=== PATIENT | female | born 1990 | race African-American/Black ===

== ENCOUNTER 2017-08-05 19:15 | Emergency (ER) | payer OTHER ==
[2017-08-05 19:42] VITALS: BP 143/85; PULSE 77; TEMP 98; BMI 32.1
--- NOTE | 2017-08-05 19:43 | PDOC ---
Rapid Medical Evaluation Time Seen by Provider: 08/05/17 19:39 Medical Evaluation: Allergies Allergy/AdvReac Type Severity Reaction Status Date / Time No Known Allergies Allergy Verified 06/22/16 15:30 I have performed a brief in-person evaluation of this patient. The patient presents with a chief complaint of: abdominal pain and nausea x 1 week Pertinent physical exam findings: none I have ordered the following: hcg, UA, culture The patient will proceed to the ED for further evaluation.
--- NOTE | 2017-08-05 20:32 | PDOC ---
History of Present Illness <Roberto Foster - Last Filed: 08/05/17 23:47> - General History Source: Patient Exam Limitations: No Limitations - History of Present Illness Initial Comments: 08/06/17 07:00 Patient is a 26 year old female with no significant past medical history of who presents to the ED with complaints of Right upper quadrant abdominal pain that began 1 week ago. Patient reports experiencing sudden onset of right upper quadrant abdominal pain that lasts for a few minutes, then resolving, and decided to come to ED for further evaluation. She reports pain began suddenly last week after she was standing up while at work but did not get it looked at as she thought it was going to relieve itself over time. Patient reports RUQ abdominal pain is a sharp pain when active but otherwise she is asymptomatic. When there is pain she rates it as rated as a 8/10 pain that does not radiate. She reports last episode of sharp pain was yesterday afternoon that lasted 2 mins. Patient reports experiencing intermittent episodes of nausea, fatigue and urinary frequency secondary to abdominal pain. She reports her last menstrual period was July 23. Denies chest pain, Sob. Denies vomiting. Denies trauma to affected area. Denies constipation, diarrhea, dysuria, hematuria. Denies contact with sick individuals , out of state travelling. Pt denies any lower abodminal pain. 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 No smoking. No alcohol. No illicit drugs. Surgical history: None PMD: Dr. Pierre <Maikel Chance - Last Filed: 08/06/17 07:01> - General Chief Complaint: Pain Stated Complaint: abdominal pain Time Seen by Provider: 08/05/17 19:39 Past History - Past Medical History COPD: No - Immunization History Immunization Up to Date: Yes - Suicide/Smoking/Psychosocial Hx Smoking History: Never smoked Have you smoked in the past 12 months: No Information on smoking cessation initiated: No Hx Alcohol Use: No Drug/Substance Use Hx: No Substance Use Type: None <Roberto Foster - Last Filed: 08/05/17 23:47> <Maikel Chance - Last Filed: 08/06/17 07:01> - Past Medical History Allergies/Adverse Reactions: Allergies Allergy/AdvReac Type Severity Reaction Status Date / Time No Known Allergies Allergy Verified 08/05/17 19:42 Review of Systems - Review of Systems Able to Perform ROS?: Yes Comments:: 08/06/17 07:01 CONSTITUTIONAL: +Generalized weakness. No reported: Fever, Chills, Diaphoresis, Malaise, Loss of Appetite HEENT: No reported: Rhinorrhea, Nasal Congestion, Throat Pain, Throat Swelling, Difficulty Swallowing, Mouth Swelling, Ear Pain, Eye Pain, Visual Changes CARDIOVASCULAR: No reported: Chest Pain, Syncope, Palpitations, Irregular Heart Rate, Lightheadedness, Peripheral Edema RESPIRATORY: No reported: Cough, Shortness of Breath, SOB with Exertion, Orthopnea, Wheezing , Stridor, Hemoptysis GASTROINTESTINAL: +Right upper quadrant pain. +Nausea. No reported:Abdominal Distension, Vomiting, Diarrhea, Constipation, Melena, Hematochezia GENITOURINARY: +Urinary Frequency. No reported: Dysuria, Urgency, Hesitancy, Flank Pain, Genital Pain MUSCULOSKELETAL: No reported: Myalgia, Arthralgia, Joint Swelling, Back pain, Neck Pain SKIN: No reported: Rash, Itching, Pallor HEMATOLOGIC/IMMUNOLOGIC: No reported: Easy Bleeding, Easy Bruising, Lymphadenopathy, Frequent infections ENDOCRINE: No reported: Unexplained Weight Gain, Unexplained Weight Loss, Heat Intolerance , Cold Intolerance NEUROLOGIC: No reported: Headache, Focal Weakness, Paresthesias, Vertigo, Lightheadedness, Unsteady Gait, Seizure, Mental Status Changes, Incontinence PSYCHIATRIC: No reported: Anxiety, Depression <Maikel Chance - Last Filed: 08/06/17 07:01> *Physical Exam - Vital Signs Last Vital Signs Temp Pulse Resp BP Pulse Ox 98.0 F 77 18 143/85 99 08/05/17 19:39 08/05/17 19:39 08/05/17 19:39 08/05/17 19:39 08/05/17 19:39 <Roberto Foster - Last Filed: 08/05/17 23:47> - Vital Signs Last Vital Signs Temp Pulse Resp BP Pulse Ox 98.0 F 77 18 143/85 99 08/05/17 19:39 08/05/17 19:39 08/05/17 19:39 08/05/17 19:39 08/05/17 19:39 - Physical Exam Comments: 08/06/17 07:01 GENERAL: The patient is awake, alert, and fully oriented, Nontoxic - in no acute distress. HEAD: Normocephalic, atraumatic. EYES: extraocular movements intact, sclera anicteric, conjunctiva clear. ENT: Normal voice, Moist mucous membranes. NECK: Normal range of motion, No JVD LUNGS: Breath sounds equal, clear to auscultation bilaterally. No wheezes, no rhonchi, no rales. HEART: Regular rate and rhythm, normal S1 and S2 without murmur, rub or gallop. ABDOMEN: +Minimal RUQ tenderness. Soft, normoactive bowel sounds. No guarding, no rebound. No masses. No CVA tenderness. Negative Tidwell's EXTREMITIES: Normal range of motion, no edema. No clubbing or cyanosis. No cords , erythema, or tenderness. NEUROLOGICAL: No facial asymmetry, Normal speech, normal gait. PSYCH: Normal mood, normal affect. SKIN: Warm, Dry, normal turgor. <Maikel Chance - Last Filed: 08/06/17 07:01> ED Treatment Course - LABORATORY CBC & Chemistry Diagram: 08/05/17 21:10 08/05/17 21:10 <Roberto Foster - Last Filed: 08/05/17 23:47> - LABORATORY CBC & Chemistry Diagram: 08/05/17 21:10 08/05/17 21:10 - ADDITIONAL ORDERS Additional order review: Laboratory Results 08/05/17 08/05/17 08/05/17 22:00 21:10 21:10 Sodium 137 Potassium 3.9 Chloride 105 Carbon Dioxide 27 Anion Gap 5 L BUN 14 Creatinine 0.7 Creat Clearance w eGFR > 60 Random Glucose 83 Calcium 8.6 Total Bilirubin 0.2 D AST 15 ALT 32 Alkaline Phosphatase 74 Total Protein 7.6 Albumin 3.8 Lipase 137 Serum , Qual Urine Color Ltyellow Urine Appearance Clear Urine pH 8.0 D Ur Specific [place] 1.025 Urine Protein Negative Urine Glucose (UA) Negative Urine Ketones Negative Urine Blood Negative Urine Nitrite Negative Urine Bilirubin Negative Urine Urobilinogen 2.0 H Ur Leukocyte Esterase Negative 08/05/17 21:03 Sodium Potassium Chloride Carbon Dioxide Anion Gap BUN Creatinine Creat Clearance w eGFR Random Glucose Calcium Total Bilirubin AST ALT Alkaline Phosphatase Total Protein Albumin Lipase Serum , Qual Negative Urine Color Urine Appearance Urine pH Ur Specific [place] Urine Protein Urine Glucose (UA) Urine Ketones Urine Blood Urine Nitrite Urine Bilirubin Urine Urobilinogen Ur Leukocyte Esterase 08/05/17 21:10 RBC 3.87 MCV 83.3 MCHC 32.8 RDW 17.1 H MPV 7.8 D Neutrophils % 58.4 Lymphocytes % 31.2 Monocytes % 9.0 Eosinophils % 1.1 Basophils % 0.3 <Maikel Chance - Last Filed: 08/06/17 07:01> Medical Decision Making - Medical Decision Making 08/05/17 20:51 26y F no pmhx presents with a complaint of intermittent RUQ pain for sveral days. Pain lasts approx 1-2 minutes and typically when she is standing. she endores associated nausea, no vomiting, fever/chills, worsening with eating, cp , sob, back pain, urinary sypmtoms. on examt he pt is well appearing, in no distress abd reveals minimal tenderness in the RUQ without reboung/guarding, neg murphies sign ?msk vs gall stones pt declines pain meds currently as she is not in pain will obtain blood work and RUQ US A portion of this note was documented by scribe services under my direction. I have reviewed the details of the note, within reason, and agree with the documentation with the following case summary and management plan written by me 08/05/17 23:47 pts labs unremarkble pts US also shows no gall stones or signs of cholecystitis. there is a mildly prominent GB duct though, but her LFts are fine will have the pt fu with PMD/GI if symptoms persistent for further workup return precautions were dsicussed I discussed the physical exam findings, ancillary test results and final diagnoses with the patient. I answered all of the patient's questions. The patient was satisfied with the care received and felt comfortable with the discharge plan and treatment plan. The patient will call their primary care physician within 24 hours to arrange follow-up and will return to the Emergency Department with any new, persistent or worsening symptoms. <Roberto Foster - Last Filed: 08/05/17 23:47> *DC/Admit/Observation/Transfer - Discharge Dispostion Admit: No <Roberto Foster - Last Filed: 08/05/17 23:47> - Attestations Scribe Attestion: 08/06/17 07:01 Documentation prepared by Maikel Chance, acting as biomedical analytical scientist for Roberto Foster MD, MD/DO. <MeronMaikel - Last Filed: 08/06/17 07:01> Diagnosis at time of Disposition: Abdominal pain Qualifiers: Abdominal location: right upper quadrant Qualified Code(s): R10.11 - Right upper quadrant pain - Discharge Dispostion Disposition: HOME Condition at time of disposition: Improved - Referrals Referrals: Moustapha Pierre MD [Primary Care Provider] - Wei Lincoln MD [Staff Physician] - - Patient Instructions Printed Discharge Instructions: DI for Abdominal Pain-Adult Additional Instructions: Return to the emergency department immediately with ANY new, persistent or worsening symptoms. If your abdominal pain returns and continues to bother you please follow-up with a net architect for further evaluation. Acopy of your Ultrasound results were included, please review this withyour doctor. You MUST call and follow up with your doctor in 3 or 4 days for further evaluation of your symptoms. Results were discussed with you. Please make sure your doctor reviews the results of your emergency evaluation. Print Language: GREENLANDIC
[2017-08-05 21:16] LABS: BASO % 0.3 % (0-2.0); EOS % 1.1 % (0-4.5); HEMATOCRIT 32.3 % (32.4-45.2); HEMOGLOBIN 10.6 GM/dL (10.7-15.3); LYMPH % 31.2 % (8-40); MCH 27.3 pg (25.7-33.7); MCHC 32.8 g/dl (32.0-36.0); MEAN CELL VOLUME 83.3 fl (80-96); MEAN PLT VOLUME 7.8 fl (7.5-11.1); NEUT % 58.4 % (42.8-82.8); PLATELET COUNT 407 K/MM3 (134-434); RBC 3.87 M/mm3 (3.60-5.2); RDW 17.1 % (11.6-15.6); WHITE BLOOD COUNT 4.9 K/mm3 (4.0-10.0)
[2017-08-05 21:49] LABS: ALBUMIN 3.8 g/dl (3.4-5.0); ALK PHOS 74 U/L (45-117); ANION GAP 5 (8-16); BILIRUBIN,TOTAL 0.2 mg/dL (0.2-1.0); BLOOD UREA NITROGEN 14 mg/dL (7-18); CALCIUM 8.6 mg/dL (8.5-10.1); CHLORIDE 105 mmol/L (98-107); CO2 27 mmol/L (21-32); CREATININE 0.7 mg/dL (0.55-1.02); GLUCOSE,RANDOM 83 mg/dL (74-106); POTASSIUM 3.9 mmol/L (3.5-5.1); SGOT/AST 15 U/L (15-37); SGPT/ALT 32 U/L (12-78); SODIUM 137 mmol/L (136-145); TOT PROT 7.6 g/dl (6.4-8.2)
[2017-08-05 22:42] LABS: URINE APPEARANCE CLEAR; URINE BILIRUBIN NEGATIVE (NEGATIVE); URINE BLOOD NEGATIVE (NEGATIVE); URINE COLOR LTYELLOW; URINE GLUCOSE (UA) NEGATIVE (NEGATIVE); URINE KETONE NEGATIVE (NEGATIVE); URINE LEUK ESTERASE NEGATIVE (NEGATIVE); URINE NITRITE NEGATIVE (NEGATIVE); URINE PROTEIN NEGATIVE (NEGATIVE)
[2017-08-06 09:30] LABS: URINE APPEARANCE CLEAR; URINE BILIRUBIN NEGATIVE (NEGATIVE); URINE BLOOD NEGATIVE (NEGATIVE); URINE COLOR LTYELLOW; URINE GLUCOSE (UA) NEGATIVE (NEGATIVE); URINE KETONE NEGATIVE (NEGATIVE); URINE LEUK ESTERASE NEGATIVE (NEGATIVE); URINE NITRITE NEGATIVE (NEGATIVE); URINE PROTEIN NEGATIVE (NEGATIVE); URINE UROBILINOGEN NEGATIVE mg/dL (0.2-1.0)
== END 2017-08-05 23:59 | disposition home or self-care (01) ==
LOC: JER 19:15
DX: R10.11 Right upper quadrant pain (principal)
CPT/HCPCS: 36415; 76705-TC; 80053; 81003; 83690; 84703; 85025; 87086; 99282-25

== ENCOUNTER 2018-07-15 13:00 | Inpatient (IN) | payer OTHER ==
[2018-07-15] MEDS ORDERED: LABETALOL HCL 100 MG TABLET (FP) ONE ×2 (14:06→20:05)
[2018-07-15] MEDS: LABETALOL HCL 100 MG TABLET (FP) PO SCH ×2 (14:15→20:08)
[2018-07-15] MEDS ORDERED: PROMETHAZINE HCL 25 MG/1 ML VIAL IVPUSH ONE (14:17)
[2018-07-15] MEDS ORDERED: BUTORPHANOL TARTRATE 1 MG/ML VIAL IVPB ONE (14:17)
[2018-07-15] MEDS ORDERED: DEXTROSE 5%-LACTATED RINGERS 1,000 ML IV SCH (14:30)
--- NOTE | 2018-07-15 14:40 | HP ---
Past Medical History - Primary Care Physician PCP:: Madalyn Lincoln - Admission Chief Complaint: 27 yrs , 37.1 weeks by sono, 38 weeks by dates is amitted due to c/o persistent headache & nausea since last night . Since last month she has h/o headache on & off , diagnosed hypertension. Preclempsia was ruled out . HELLP work on 06/02/18 was normal. She was placed on po Labetalol 100 mg bid in the clinic , for headache for 1 month now. 24 hrs urine submitted on reported as, total urine vol 2000ml, to urine protein 240, cr clearance 74 ml( lo) ,bun 3, cr .4, , uric acid 4.5, plt 259 h/h 10.9/31.4, k 3.3 .BP noted in L&D on 07/14/18 -141/90.nst reactive. 07/13/18 sono by M , reported as 36.6 wks, , vx, post placenta, , efw 2655gm ( 5'14")19 %tile , AP testing reassuring, BP noted 142/100. nst in the clinic was reactive History of Present Illness: pt has care at [address] [place] [address] wt gain 5 lbs pt was seen by MFM for serial sonograms for growth Low free beta hcg on quad screen , intermediate risk for DS1:408 on quad screen Materna T-21 neg panel : 01/04/18 pap normal, gc/ct neg, , O pos, Hbsg neg, Rpr nr,Hiv nr , Rubella immune, Hgb A1A2 , Sickle neg , Varicella immune, Cf screen neg, Lead neg , urine cultue < 10,000. 04/20/18 1 hr gtt 160, h/h 10.8/33.6, plt 288, quantiferon neg 05/02/18 3 hr gtt 75/181/150, 144 -wnl 07/04/18 h/h 11.2/33.6, , plt 242, Hiv nr, gc/ct neg History Source: Medical Record Limitations to Obtaining History: No Limitations - Past Medical History BUSINESS PROPOSAL REP: Yes: Other (c/o headache) Cardiovascular: No: HTN, Murmur Pulmonary: Yes: Other (no sob). No: Asthma Gastrointestinal: Yes: Other (c/o nausea ,) Hepatobiliary: No: Hepatitis B Renal/: No: UTI ...: 1 ...Para: 0 ...LMP: 10/22/17 ... Weeks Gestation by Dates: 38 ...EDC by Dates: 07/29/18 ...EDC by Sono: 07/04/18 (37.1 weeks ) Heme/Onc: Yes: Anemia (rx po iron & pnv). No: Sickle Cell Trait Infectious Disease: No: AIDS, HIV, STD's, Tuberculosis Psych: No: Addictions, Anxiety, Bipolar, Depression, Panic, Psychosis, Schizophrenia, Other Musculoskeletal: Yes: Other (none known) Endocrine: Yes: Other (none) - Past Surgical History Past Surgical History: Yes: None, Valve Replacement Hx Myomectomy: No Hx Transabdominal Cerclage: No - Smoking History Smoking history: Never smoked Have you smoked in the past 12 months: No - Alcohol/Substance Use Hx Alcohol Use: No History of Substance Use: reports: None Home Medications - Allergies Allergies/Adverse Reactions: Allergies Allergy/AdvReac Type Severity Reaction Status Date / Time No Known Allergies Allergy Verified 07/15/18 15:01 - Home Medications Home Medications: Ambulatory Orders Ferrous Sulfate [Iron] 325 mg PO DAILY 04/23/18 Vitamins (Sjr) - 1 tab PO BID 04/23/18 Labetalol HCl 100 mg PO BID 06/30/18 Physical Exam - Maternity Vital Signs: Vital Signs Temperature 97.7 F 07/15/18 13:15 Pulse Rate 108 H 07/15/18 13:40 Respiratory Rate 18 07/15/18 13:30 Blood Pressure 144/95 07/15/18 13:40 O2 Sat by Pulse Oximetry (%) Selected Entries 07/15/18 07/15/18 07/15/18 13:15 13:20 13:30 Blood Pressure 153/101 H 144/98 141/98 Weight 07/15/18 07/15/18 13:40 14:15 Blood Pressure 144/95 Weight 201 lb Constitutional: Yes: Anxious, Obese, Other (appears sick) Eyes: Yes: WNL HENT: Yes: WNL, Normocephalic Neck: Yes: WNL, Supple Cardiovascular: Yes: WNL, Regular Rate and Rhythm Lungs: Clear to auscultation Breast(s): Yes: WNL - Abdominal Exam/OB Fundal Height: 37 Number of Fetuses: Single Presentation: Vertex Contractions: No Heart Rate (range): 130 Heart Rate Location: [facility] Category: I Accelerations: Uniform Decelerations: None - Vaginal Exam/OB Vaginal Bleediing: No Dilatation (cm): close Effacement (%): unefface Amniotic Membrane Status: Intact Presentation: Vertex/Position Station: -3 - Physical Exam Musculoskeletal: Yes: WNL Extremities: Yes: WNL. No: Calf Tenderness Edema: Yes (stiffness of fingers ) Edema: LLE: 1+, RLE: 1+ Integumentary: Yes: Tattoos Deep Tendon Reflex Grade: Normal +2 ...Motor Strength: WNL Psychiatric: Yes: WNL, Alert, Oriented - Labs Lab Results: Laboratory Tests 07/15/18 07/15/18 07/15/18 14:50 14:50 14:50 WBC 5.9 Hgb 11.3 Hct 32.9 Plt Count 261 PT with INR 13.10 H INR 1.11 H PTT (Actin FS) 28.1 Sodium Potassium Chloride Carbon Dioxide BUN Creatinine Random Glucose Uric Acid Calcium Total Bilirubin GGT AST ALT Alkaline Phosphatase Total Protein Albumin Urine Protein U Random Total Protein Urine Creatinine Protein/Creatinin Ratio Blood Type Antibody Screen 07/15/18 07/15/18 07/15/18 14:50 14:50 14:50 WBC Hgb Hct Plt Count PT with INR INR PTT (Actin FS) Sodium 139 Potassium 3.3 L Chloride 104 Carbon Dioxide 24 BUN 3 L Creatinine 0.4 L Random Glucose 72 L Uric Acid 4.3 Calcium 8.2 L Total Bilirubin 0.5 GGT 23 AST 31 ALT 39 Alkaline Phosphatase 115 Total Protein 6.6 Albumin 2.8 L Urine Protein U Random Total Protein Urine Creatinine Protein/Creatinin Ratio Blood Type O POSITIVE Antibody Screen Negative 07/15/18 07/15/18 14:50 14:50 WBC Hgb Hct Plt Count PT with INR INR PTT (Actin FS) Sodium Potassium Chloride Carbon Dioxide BUN Creatinine Random Glucose Uric Acid Calcium Total Bilirubin GGT AST ALT Alkaline Phosphatase Total Protein Albumin Urine Protein Negative U Random Total Protein 16.8 H Urine Creatinine 79.0 H Protein/Creatinin Ratio 0.210 Blood Type Antibody Screen Problem List - Problems (1) with 37 weeks completed gestation Code(s): Z3A.37 - 37 WEEKS GESTATION OF (2) Gestational hypertension affecting first Code(s): O13.9 - GESTATIONAL HTN W/O SIGNIFICANT PROTEINURIA, UNSP TRIMESTER (3) Elective induction of labor planned Code(s): PFJ1858 - Assessment/Plan 27 yrs 37.1 weeks by sono & 38 weeks by dates diagnosed Gestational HTN, preclempsia is ruled out she is symptomatic with persistent headache & nausea , restless hence it is decided to admit & dilver the patient Cervidil induction :---inserted at 3.25 PM Control BP by PO Labetalol, Prn IV Labetalol IV MgSo4 prn Trial of labor for vaginal delivery pt informed possibility of c/section, in c/o failed induction, non reassurance, or very high BP
[2018-07-15 14:51] VITALS: BMI 34.4
[2018-07-15] MEDS ORDERED: SODIUM PHOSPHATE/NA BIPHOS 133 ML ENEMA PR ONE (15:21)
[2018-07-15] MEDS ORDERED: DINOPROSTONE 10 MG VAGINAL SUPPOSITORY VG ONE (15:25)
[2018-07-15 15:29] LABS: BASO % 0.1 % (0-2.0); EOS % 0.4 % (0-4.5); HEMATOCRIT 32.9 % (32.4-45.2); HEMOGLOBIN 11.3 GM/dL (10.7-15.3); LYMPH % 14.1 % (8-40); MCH 31.1 pg (25.7-33.7); MCHC 34.4 g/dl (32.0-36.0); MEAN CELL VOLUME 90.4 fl (80-96); MEAN PLT VOLUME 8.6 fl (7.5-11.1); NEUT % 74.4 % (42.8-82.8); PLATELET COUNT 261 K/MM3 (134-434); RBC 3.64 M/mm3 (3.60-5.2); RDW 14.3 % (11.6-15.6); WHITE BLOOD COUNT 5.9 K/mm3 (4.0-10.0)
[2018-07-15 15:32] LABS: URINE APPEARANCE SLCLOUDY; URINE BILIRUBIN NEGATIVE (<2.0 mg/dL); URINE COLOR YELLOW; URINE GLUCOSE (UA) NEGATIVE (NEGATIVE); URINE KETONE NEGATIVE (NEGATIVE); URINE LEUK ESTERASE NEGATIVE (NEGATIVE); URINE NITRITE NEGATIVE (NEGATIVE); URINE PROTEIN NEGATIVE (NEGATIVE); URINE UROBILINOGEN 4.0 E.U/dl mg/dL (0.2-1.0)
[2018-07-15 15:41] LABS: INR 1.11 (0.83-1.09); PROTHROMBIN TIME (PATIENT) 13.1 SEC (9.7-13.0)
[2018-07-15 15:49] LABS: RATIO URIN PROTEIN/URIN CREAT 0.21 MG/DL
[2018-07-15 16:10] LABS: ALBUMIN 2.8 g/dl (3.4-5.0); ALK PHOS 115 U/L (45-117); ANION GAP 11 MMOL/L (8-16); BILIRUBIN,TOTAL 0.5 mg/dL (0.2-1); BLOOD UREA NITROGEN 3 mg/dL (7-18); CALCIUM 8.2 mg/dL (8.5-10.1); CHLORIDE 104 mmol/L (98-107); CO2 24 mmol/L (21-32); CREATININE 0.4 mg/dL (0.55-1.3); GLUCOSE,RANDOM 72 mg/dL (74-106); POTASSIUM 3.3 mmol/L (3.5-5.1); SGOT/AST 31 U/L (15-37); SGPT/ALT 39 U/L (13-61); SODIUM 139 mmol/L (136-145); TOT PROT 6.6 g/dl (6.4-8.2); URIC ACID 4.3 mg/dL (2.6-7.2)
[2018-07-16] MEDS ORDERED: LABETALOL HCL 100 MG TABLET (FP) ONE ×2 (02:22→09:44)
[2018-07-16] MEDS: LABETALOL HCL 100 MG TABLET (FP) PO SCH ×3 (02:30→18:11)
[2018-07-16] MEDS ORDERED: CITRIC ACID/SODIUM CITRATE 30 ML UNIT-DOSE CUP PO ONE (05:28)
[2018-07-16] MEDS ORDERED: ELECTROLYTE-148 SOLN 1,000 ML IV SCH (05:30)
--- NOTE | 2018-07-16 05:41 | PN ---
Progress Note (short form) - Note Progress Note: cervidil remved at 3.30 AM pt received fleets enema & took shower. before cervidil removal 3.30 Am uc were irregular 3-5 min fhr category -1 ,--150 5.00AM uc infrequent fhr cat 1, base line 150 bpm Selected Entries 07/16/18 07/16/18 07/16/18 01:00 02:00 03:00 Temperature 97.9 F Pulse Rate 107 H 102 H 106 H Blood Pressure 138/87 132/79 138/79 07/16/18 07/16/18 04:00 05:00 Temperature Pulse Rate 104 H 106 H Blood Pressure 130/65 149/95 pelvic exam ; cx posterior, unefface , vx -3 no c/o headaches, she has been receiving Labetalol 100 mg po q 6h 37.3 weeks, gestational hypertension , symptomatic , s/p cevidil 12hr, cx unfavorable , fhr testing reassuring pt was given option of 2nd cervidl followed by pitocin induction or go home with higher dose of po labetalol continue frequent monotoring or delivery by primaryc/section r/b/a of all options discussed pt & family has decided delivery by primary c/section Imp : 37.3 weeks ,Gestational HtN symptomatic , Failed induction of labor , Plan: pt decided dlivery by primary c/section since K is 3.3 , i will replace 10 meq Kcl ivpb prior to c/section Problem List - Problems (1) with 37 weeks completed gestation Code(s): Z3A.37 - 37 WEEKS GESTATION OF (2) Gestational hypertension affecting first Code(s): O13.9 - GESTATIONAL HTN W/O SIGNIFICANT PROTEINURIA, UNSP TRIMESTER (3) Elective induction of labor planned Code(s): OIL5910 - (4) Failed induction of labor Code(s): O61.9 - FAILED INDUCTION OF LABOR, UNSPECIFIED Qualifiers: Failed induction of labor type: medical Qualified Code(s): O61.0 - Failed medical induction of labor
[2018-07-16] MEDS: KCL 10 MEQ IVPB 10 MEQ/100 ML INFUS.BAG IVPB SCH ×2 (05:50→08:45)
[2018-07-16] MEDS ORDERED: morphine SULFATE/Preservative Free 0.5 MG/ML (1cc Syringe) ONE (07:18)
[2018-07-16] MEDS ORDERED: ceFAZolin SODIUM 1 GM VIAL ONE (07:33)
[2018-07-16] MEDS ORDERED: OXYTOCIN 10 UNITS/ML VIAL ONE (07:44)
[2018-07-16 08:31] LABS: ARTERIAL BLD GAS O2 SATURATION 12.4 % (90-98.9); ARTERIAL BLOOD GAS BASE EXCESS 0.2 meq/l (-2-2); ARTERIAL BLOOD GAS PCO2 64.7 mmHg (35-45); ARTERIAL BLOOD GAS PO2 13.4 mmHg (80-100); ARTERIAL BLOOD GAS pH 7.26 (7.35-7.45)
[2018-07-16] MEDS ORDERED: IBUPROFEN 600 MG TABLET (FP) PO PRN (08:32)
[2018-07-16] MEDS ORDERED: METHYLERGONOVINE MALEATE 0.2 MG/1 ML AMP IM PRN (08:32)
[2018-07-16] MEDS: OXYTOCIN 20 UNITS in 0.9% NS 20 UNIT/1,000 ML INFUS.BAG IV SCH ×2 (08:35→20:20)
[2018-07-16 08:37] LABS: VENOUS PC02 50.6 mmHg (38-52); VENOUS PH 7.34 (7.32-7.42)
[2018-07-16] MEDS ORDERED: ONDANSETRON 4 MG/2 ML VIAL IVPUSH PRN (08:37)
[2018-07-16] MEDS ORDERED: OXYTOCIN 20 UNITS in 0.9% NS 20 UNIT/1,000 ML INFUS.BAG IV ONE ×2 (08:44→19:39)
--- NOTE | 2018-07-16 08:58 | OP ---
Operative Note - Note: Operative Date: 07/16/18 Pre-Operative Diagnosis: 37.3 weeks, gestational hypertension, failed induction of labor Operation: Primary LFTC/section Findings: 7.45 AM, baby boy, LOT position, 9/9 wt 6'8' ht 19" both tubes & ovaries normal Dr Ward Hall Clerk in the OR Surgeon: Madalyn Lincoln Sound Assistant: Tosin Mariano Anesthesiologist/BRUSH STAINER: Debby Schwartz Anesthesia: Spinal Specimens Removed: cord segment for blood gas. cord blood. placenta Estimated Blood Loss (mls): 500 Drains, Volume Out (mls): 150 Fluid Volume Replaced (mls): 1,800 (2 gm iv ancef ) Operative Report Dictated: Yes
--- NOTE | 2018-07-16 09:11 | PN ---
Delivery - Delivery Section: Primary, Low Flap Transverse (Indication : 37.3 weks, Gestational Hypertension, Failed Induction of Labor) Type of Anesthesia: Spinal EBL (cc): 500 (150 ml benja color ) Delivery, Single - Stages of Labor Date of Delivery: 07/16/18 Time of Delivery: 07:45 Date Placenta Delivered: 07/16/18 Time Placenta Delivered: 07:46 Placenta: Yes: Spontaneous, Uterine Exploration - Condition of Infant Name: Carroll Ward Infant Gender: Male Weight: 6 lb 8 oz Position: Left Total Hours ROM (Hrs/Mins): 1 min - 1 Minute Total Score: 9 5 Minutes Total Score: 9 - Feeding Plan Initial Plan: Elected not to breastfeed exclusively throughout hospitalization Remarks - Remarks Remarks: 27 yrs , 37.2 weeks admitted due to gestational hypertension symptomatic with persistent headache & nausea on 07/15/18 HELLP work up wnl , Preclempsia ruled out GBS neg Cervidil insertion inserted on 07/15/18 Po labetalol 100 mg q6h given for BP management IV 10 meq KCL x2 doses given for hypkalemia K 3.3 Intraop course uneventful Plan ct post op Labetalol PO
[2018-07-16] MEDS ORDERED: LABETALOL HCL 100 MG TABLET (FP) PO SCH ×2 (09:45→10:00)
[2018-07-16] MEDS ORDERED: LABETALOL HCL 5 MG/1 ML (100MG/20 ML VIAL) IVPB ONE (10:36)
[2018-07-16] MEDS ORDERED: ACETAMINOPHEN 1000 MG/100 ML VIAL (NON FORMULARY) IVPB PRN (11:04)
--- NOTE | 2018-07-16 12:07 | OP ---
DATE OF OPERATION: 07/16/2018 PREOPERATIVE DIAGNOSIS: At 37-3/7 weeks, gestational hypertension, failed induction of labor. OPERATION DONE: Primary low flap transverse section. SURGEON: Madalyn Lincoln MD FINDINGS: A 27-year-old, 1, para 0, at 37-3/7 weeks, was admitted on July 15 because of gestational hypertension. Patient was on labetalol and she was symptomatic with headaches and severe nausea continuously for over 24 hours. The patient was admitted. Her workup was negative. A 24-hour urine protein was 240 at the time. Preeclampsia was ruled out. She was induced due to the persistent headaches with a high blood pressure. She was placed on p.o. labetalol 100 mg q.6 h. and Cervidil induction was done. Cervix, after removing the Cervidil, was still firm, posterior ,uneffaced, unfavorable vertex was -3 station. Patient refused for a 2nd Cervidil or continued with Pitocin induction. She requested for . PROCEDURE: The patient was taken to the operating room table. Abdomen was shaved prepped, Tejada catheter was placed, spinal anesthesia was given. She was placed in supine position. The abdomen was painted and draped in the usual manner. Pfannenstiel incision was made in the skin and subcutaneous tissue. Anterior rectus sheath was incised transversely. Bleeding points were clamped and cauterized. Rectus muscle was from the rectus sheath. Parietal peritoneum was opened vertically. Lower flap parietal peritoneum was incised transversely and then lower uterine segment was incised transversely. Amniotic fluid was clear. Baby was delivered from LOT position at 7:45 a.m. Cord was clamped, cut, and cord segment was sent for cord blood gas, and the cord blood was collected. Placenta was removed completely with the membranes. The baby was a boy. was 9 and 9. The weight was 6.8 pounds, and Dr. Carroll Ward was present in the OR. The uterine cavity was completely cleaned and then the uterine incision was closed in 2 layers, first layer was a continuous locking with a Biosyn 0 suture, second layer was a continuous intermittent locking with a Biosyn 0 suture. Both tubes and ovaries were normal. Bladder peritoneum also was closed with a Biosyn 0 suture. Hemostasis was verified. Sponge, instrument, needle count was correct. Then the closure of the abdomen was done. Parietal peritoneum was closed with 0 Vicryl suture. Muscles were approximated together with a Vicryl 0 interrupted suture. Hemostasis was checked underneath the rectus sheath flap. The rectus sheath was closed with a Vicryl 0 suture, continuous sutures were taken. Hemostasis was checked, and subcutaneous tissue and the skin was approximated with rubens. Patient tolerated the procedure well and she was transferred to the recovery room in stable condition. Her estimated blood loss was 500 mL. Intraoperative urine output was 150 mL, it was benja color. She received 2 g of IV Ancef prior to the incision. She will be continued on labetalol postoperatively. Eriberto [id number] MTDMireille
[2018-07-16] MEDS ORDERED: MAGNESIUM SULFATE 20GM/500ML - 20 GM/500 ML INFUS.BAG ONE (12:36)
[2018-07-16] MEDS ORDERED: MAGNESIUM SULFATE IN WATER 4 GM/50 ML IVPB IVPB ONE (12:36)
[2018-07-16] MEDS ORDERED: MAGNESIUM 4GM/H20 - 4 GM/100 ML IVPB IVPB SCH (12:40)
[2018-07-16] MEDS ORDERED: MAGNESIUM SULFATE 20GM/500ML - 20 GM/500 ML INFUS.BAG IVPB SCH (12:45)
--- NOTE | 2018-07-16 13:02 | PN ---
Progress Note (short form) - Note Progress Note: pt s/p primary c/section post op she was transferred to pp unit. there elevated BP were note, pt again c/ o headache , hence she was brought back to L&D , . IVPB Labetalol 10 mg stat was given in L&D at 10 45 AM PT is having periodic labile elevation of BP RS CTA post op urine output 850 ml total i/o 3000/700+ 850 ml reflexes normal, though she has scd in situ. Selected Entries 07/16/18 07/16/18 07/16/18 09:45 10:10 10:30 Pulse Rate 106 H 91 H 91 H Blood Pressure 144/92 165/100 142/94 07/16/18 07/16/18 07/16/18 11:30 12:00 12:30 Pulse Rate 97 H 102 H 93 H Blood Pressure 135/79 154/98 143/84 Plan : MgSo4 IV infusion 4gm followed by 1 gm/hr for 24 hrs Problem List - Problems (1) with 37 weeks completed gestation Code(s): Z3A.37 - 37 WEEKS GESTATION OF (2) Gestational hypertension affecting first Code(s): O13.9 - GESTATIONAL HTN W/O SIGNIFICANT PROTEINURIA, UNSP TRIMESTER (3) Elective induction of labor planned Code(s): XTI2150 - (4) Failed induction of labor Code(s): O61.9 - FAILED INDUCTION OF LABOR, UNSPECIFIED Qualifiers: Failed induction of labor type: medical Qualified Code(s): O61.0 - Failed medical induction of labor (5) delivery delivered Code(s): O82 - ENCOUNTER FOR DELIVERY WITHOUT INDICATION
[2018-07-16] MEDS ORDERED: CEFAZOLIN 1 GM/D5W 1 GM/50 ML BAG ONE ×2 (15:11→22:51)
[2018-07-16] MEDS: CEFAZOLIN 1 GM/D5W 1 GM/50 ML BAG IVPB SCH ×2 (15:16→22:55)
[2018-07-16] MEDS ORDERED: ACETAMINOPHEN INJECTION 100 ML IVPB ONE (16:48)
[2018-07-16] MEDS ORDERED: SENNOSIDES/DOCUSATE COMBO (SENNA PLUS) TABLET (UD) PO PRN (22:00)
[2018-07-16] MEDS: ACETAMINOPHEN 325 MG TABLET (FP) PO PRN (23:05)
[2018-07-16] MEDS ORDERED: ACETAMINOPHEN 325 MG TABLET (FP) ONE (23:06)
[2018-07-17] MEDS: LABETALOL HCL 100 MG TABLET (FP) PO SCH ×2 (00:35→06:15)
[2018-07-17] MEDS ORDERED: OXYTOCIN 20 UNITS in 0.9% NS 20 UNIT/1,000 ML INFUS.BAG IV ONE (05:02)
[2018-07-17] MEDS ORDERED: ACETAMINOPHEN 325 MG TABLET (FP) ONE (05:20)
[2018-07-17] MEDS: ACETAMINOPHEN 325 MG TABLET (FP) PO PRN ×4 (05:20→21:20)
[2018-07-17] MEDS: OXYTOCIN 20 UNITS in 0.9% NS 20 UNIT/1,000 ML INFUS.BAG IV SCH ×2 (05:30→19:55)
[2018-07-17] MEDS: oxyCODONE HCL 5 MG TABLET PO PRN ×4 (06:05→21:20)
[2018-07-17] MEDS ORDERED: oxyCODONE HCL 5 MG TABLET ONE (06:06)
[2018-07-17] MEDS ORDERED: CEFAZOLIN 1 GM/D5W 1 GM/50 ML BAG ONE (06:22)
[2018-07-17] MEDS: CEFAZOLIN 1 GM/D5W 1 GM/50 ML BAG IVPB SCH (06:30)
--- NOTE | 2018-07-17 06:45 | PN ---
Post Progress Note - Subjective Subjective: pt woke up with headache at 6.00AM she did not have headache since MgSo4 given incision pain 6/10 passing flatus Post Day: 1 Type of Delivery: Primary C/S Vital Signs: Vital Signs Temperature 98.3 F 07/17/18 02:00 Pulse Rate 99 H 07/17/18 06:00 Respiratory Rate 18 07/17/18 06:00 Blood Pressure 131/81 07/17/18 06:00 O2 Sat by Pulse Oximetry (%) 100 07/16/18 09:45 Selected Entries 07/17/18 07/17/18 07/17/18 01:00 01:30 02:00 Pulse Rate 100 H 100 H 93 H Blood Pressure 120/71 112/65 117/74 07/17/18 07/17/18 07/17/18 02:30 03:00 03:30 Pulse Rate 92 H 99 H 99 H Blood Pressure 113/71 111/72 120/74 07/17/18 07/17/18 04:00 05:00 Pulse Rate 100 H 99 H Blood Pressure 107/72 117/79 Breast Exam: Yes: Soft, Other (plans to BF ). No: Engorged Uterus: Yes: Fundus Firm, Fundus below umbilicus, Non-tender Incision: Yes: Dressing dry and intact. No: Redness, Oozing Abdomen/GI: Yes: Abdomen soft, Passing flatus, Tolerating PO (clear fluid ). No : Abdominal Distention, Tender Lochia: Yes: Rubra Lochia, amount: Moderate Extremities: Yes: Calves non-tender (scd in situ ), Edema (1+/1+ , reflexes normal ) Perineum: Yes: Intact Activity: Other (pt not oob yet , woodall & scd in situ ) - Labs Labs: CBC WBC 5.9 K/mm3 (4.0-10.0) 07/15/18 14:50 RBC 3.64 M/mm3 (3.60-5.2) 07/15/18 14:50 Hgb 11.3 GM/dL (10.7-15.3) 07/15/18 14:50 Hct 32.9 % (32.4-45.2) 07/15/18 14:50 MCV 90.4 fl (80-96) 07/15/18 14:50 MCH 31.1 pg (25.7-33.7) 07/15/18 14:50 MCHC 34.4 g/dl (32.0-36.0) 07/15/18 14:50 RDW 14.3 % (11.6-15.6) 07/15/18 14:50 Plt Count 261 K/MM3 (134-434) 07/15/18 14:50 MPV 8.6 fl (7.5-11.1) 07/15/18 14:50 Absolute Neuts (auto) 4.4 K/mm3 (1.5-8.0) 07/15/18 14:50 Neutrophils % 74.4 % (42.8-82.8) 07/15/18 14:50 Lymphocytes % 14.1 % (8-40) 07/15/18 14:50 Monocytes % 11.0 % (3.8-10.2) H 07/15/18 14:50 Eosinophils % 0.4 % (0-4.5) 07/15/18 14:50 Basophils % 0.1 % (0-2.0) 07/15/18 14:50 Nucleated RBC % 0 % (0-0) 07/15/18 14:50 Retic Count 1.97 % (0.5-1.5) H D 07/15/18 14:50 Laboratory Tests 07/16/18 07/17/18 07/17/18 16:46 01: 04:40 Magnesium 3.1 H 3.0 H 2.9 H Laboratory Tests 07/17/18 07:45 WBC 9.7 RBC 3.50 L Hgb 11.2 Hct 32.2 L Plt Count 253 Other Findings, Remarks: RS cta , I/O 4200/4600 1625/2150 as computer genrated as per nurse last 12 hrs iv +Po intake 2410 ml woodall ouput 2600 ml pt Problem List - Problems (1) with 37 weeks completed gestation Code(s): Z3A.37 - 37 WEEKS GESTATION OF (2) Gestational hypertension affecting first Code(s): O13.9 - GESTATIONAL HTN W/O SIGNIFICANT PROTEINURIA, UNSP TRIMESTER (3) Elective induction of labor planned Code(s): [id number] - (4) Failed induction of labor Code(s): O61.9 - FAILED INDUCTION OF LABOR, UNSPECIFIED Qualifiers: Failed induction of labor type: medical Qualified Code(s): O61.0 - Failed medical induction of labor (5) delivery delivered Code(s): O82 - ENCOUNTER FOR DELIVERY WITHOUT INDICATION Assessment/Plan s/p primary c/section on IV MgSo4 for last 20 hrs post op. she is po Labetalol 100 mg q 6h , skip if BP < or 120/70 she is stable Plan d/c Mg So4 d/c woodall send to PP unit encourage po fluids, deep breathing , ambulation after ftransfer to PP unit MRSA screen still pending Consult with Dr Dooley triage rn for BP management
--- NOTE | 2018-07-17 07:58 | PN ---
Progress Note (short form) - Note Progress Note: Post op day#1.S/P C Section under spinal with duramorph uneventful.Patient stable and has little pain for which she is on medication.Her BP is fine today.No any anesthesia related problem.Patient DC from the anesthesia care.
[2018-07-17 08:14] LABS: BASO % 0.2 % (0-2.0); EOS % 0.2 % (0-4.5); HEMATOCRIT 32.2 % (32.4-45.2); HEMOGLOBIN 11.2 GM/dL (10.7-15.3); LYMPH % 6.5 % (8-40); MCH 32.1 pg (25.7-33.7); MCHC 34.9 g/dl (32.0-36.0); MEAN CELL VOLUME 92.1 fl (80-96); MEAN PLT VOLUME 8.9 fl (7.5-11.1); MONO % 6.4 % (3.8-10.2); NEUT % 86.7 % (42.8-82.8); PLATELET COUNT 253 K/MM3 (134-434); RDW 14.4 % (11.6-15.6); WHITE BLOOD COUNT 9.7 K/mm3 (4.0-10.0)
[2018-07-17] MEDS ORDERED: BISACODYL 10 MG SUPP.RECT RC PRN (08:32)
[2018-07-17 08:41] LABS: ANION GAP 10 MMOL/L (8-16); CALCIUM 7.7 mg/dL (8.5-10.1); CHLORIDE 104 mmol/L (98-107); CO2 24 mmol/L (21-32); CREATININE 0.6 mg/dL (0.55-1.3); GLUCOSE,RANDOM 135 mg/dL (74-106); POTASSIUM 3.2 mmol/L (3.5-5.1); SODIUM 138 mmol/L (136-145)
[2018-07-17 09:04] LABS: BLOOD UREA NITROGEN 2 mg/dL (7-18)
--- NOTE | 2018-07-17 09:34 | CONSULT ---
Consult - text type - Consultation Consultation Note: Renal Consult for hypertension This is a 27 year old woman with no significant past medical history who presented at 37 week gestation for following failed induction of labor. Pt was noted to have hypertension during at about 30 weeks gestation was was on oral labetalol. Pt reported having headaches when BP was high. No CP, palpitations, N/V. Denies any sob. Gained about 15lbs during . No NSAID or tobacco use. Was never made aware of any hypertension issues before . Denies any family history of hypertension. PMhx: as above Allergies: NKDA Family Hx: NC Social Hx: No T/A/D ROS: as per HPI Home Medications Medication Instructions Recorded Ferrous Sulfate [Iron] 325 mg PO DAILY 04/23/18 Vitamins (Sjr) - 1 tab PO BID 04/23/18 Labetalol HCl 100 mg PO BID 06/30/18 Vital Signs Temperature 98.3 F 07/17/18 02:00 Pulse Rate 101 H 07/17/18 08:00 Respiratory Rate 18 07/17/18 08:00 Blood Pressure 122/81 07/17/18 08:00 O2 Sat by Pulse Oximetry (%) 100 07/16/18 09:45 Intake & Output 07/14/18 07/15/18 07/16/18 07/17/18 23:59 23:59 23:59 23:59 Intake Total 2200 4291 1900 Output Total 1050 4600 2650 Balance 1150 -309 -750 Weight 91.172 kg NAD awake and alert neck supple, no JVD tachycardic, no M/R CTA No LE edema CBC, BMP 07/17/18 07:45 07/17/18 07:45 Laboratory Tests 07/15/18 07/15/18 07/15/18 14:50 14:50 14:50 Calcium Albumin 2.8 L Urine Protein Negative U Random Total Protein 16.8 H Urine Creatinine 79.0 H Protein/Creatinin Ratio 0.210 07/17/18 07:45 Calcium 7.7 L Albumin Urine Protein U Random Total Protein Urine Creatinine Protein/Creatinin Ratio Current Medications Acetaminophen (Tylenol -) 650 mg PO Q4H PRN PRN Reason: PAIN LEVEL 1-3 Last Admin: 07/17/18 05:20 Dose: 650 mg Acetaminophen (Ofirmev Injection -) 1,000 mg IVPB Q6H PRN PRN Reason: PAIN LEVEL 1-5 Stop: 07/17/18 11:03 Last Admin: 07/16/18 16:55 Dose: 1,000 mg Bisacodyl (Dulcolax Suppository -) 10 mg RC PRN PRN PRN Reason: CONSTIPATION Diphenhydramine HCl (Benadryl Injection -) 25 mg IVPUSH Q4H PRN PRN Reason: Pruritis Last Admin: 07/16/18 17:55 Dose: 25 mg Diphtheria/Tetanus/Acell Pertussis (Boostrix -) 0.5 ml IM .ONCE ONE Stop: 07/18/18 10:01 Enoxaparin Sodium (Lovenox -) 40 mg SQ DAILY [facility] Ferrous Sulfate (Feosol -) 325 mg PO BIDWM [facility] Cefazolin Sodium (Ancef 1 Gm Premixed Ivpb -) 1 gm in 50 mls @ 100 mls/hr IVPB Q8H [facility] Stop: 07/17/18 14:59 Last Admin: 07/17/18 06:30 Dose: 100 mls/hr Oxytocin/Sodium Chloride (Normal Saline+20 Units Oxytocin -) 20 unit in 1,000 mls @ 125 mls/hr IV ASDIR [facility] Last Admin: 07/17/18 05:30 Dose: 125 mls/hr Ibuprofen (Motrin -) 600 mg PO Q4H PRN PRN Reason: PAIN 1 - 3;IF TYLENOL NT WRK Labetalol HCl (Normodyne -) 100 mg PO Q6HPO [facility] Last Admin: 07/17/18 06:15 Dose: 100 mg Methylergonovine Maleate (Methergine Injection -) 0.2 mg IM Q4H PRN PRN Reason: Excessive Bleeding (L&D) Ondansetron HCl (Zofran Injection) 4 mg IVPUSH Q4H PRN PRN Reason: NAUSEA Oxycodone HCl (Roxicodone -) 5 mg PO Q4H PRN PRN Reason: PAIN LEVEL 4 - 6 Last Admin: 07/17/18 06:05 Dose: 5 mg Oxycodone HCl (Roxicodone -) 10 mg PO Q4H PRN PRN Reason: PAIN LEVEL 7 - 10 Multivit/Folic Acid/Iron ( Vitamins (Sjr) -) 1 tab PO DAILY N[facility] Senna/Docusate Sodium (Pericolace -) 2 tablet PO HS PRN PRN Reason: CONSTIPATION Simethicone (Mylicon -) 80 mg PO Q4H PRN PRN Reason: GAS 27 year old woman with no significant past medical history who presented at 37 week gestation for following failed induction of labor with hypertension. #Gestational Hypertension/ hypertension w/o evidence of preeclamspia #37 weeks gestation s/p #Hypokalemia Pt w/o any ovet proteinuria, LFT abnormalities, low platelet counts Will continue labetalol 100mg Q6h PRN for SBP > 140/90 Pain control w/o NSAIDs Discontinue IVF if possible Supplement K for goal > 3.5 OB follow up Thank you Will follow Sadi Dooley DO
[2018-07-17] MEDS: ENOXAPARIN NA (PORCINE) 40 MG/0.4 ML DISP.SYRIN SQ SCH (10:21)
[2018-07-17] MEDS: PRENATAL VITAMINS W/ FOLIC ACID TABLET (FP) PO SCH (10:23)
[2018-07-17] MEDS: SIMETHICONE 80 MG TAB.CHEW (FP) PO PRN ×2 (10:23→14:23)
[2018-07-17] MEDS: LABETALOL HCL 100 MG TABLET (FP) PO PRN ×2 (12:11→17:57)
[2018-07-17] MEDS: FERROUS SO4 325 MG TABLET (FP) PO SCH (17:57)
[2018-07-18] MEDS: oxyCODONE HCL 5 MG TABLET PO PRN ×4 (01:34→18:58)
[2018-07-18] MEDS: ACETAMINOPHEN 325 MG TABLET (FP) PO PRN ×3 (01:34→18:59)
[2018-07-18] MEDS: SIMETHICONE 80 MG TAB.CHEW (FP) PO PRN ×3 (01:34→18:59)
[2018-07-18] MEDS: LABETALOL HCL 100 MG TABLET (FP) PO PRN ×2 (06:16→11:45)
[2018-07-18] MEDS: FERROUS SO4 325 MG TABLET (FP) PO SCH ×2 (08:43→16:55)
[2018-07-18] MEDS ORDERED: LABETALOL HCL 100 MG TABLET (FP) PO ONE ×2 (08:45→15:15)
[2018-07-18] MEDS: ENOXAPARIN NA (PORCINE) 40 MG/0.4 ML DISP.SYRIN SQ SCH (09:19)
[2018-07-18] MEDS: PRENATAL VITAMINS W/ FOLIC ACID TABLET (FP) PO SCH (09:19)
[2018-07-18] MEDS ORDERED: DIPHTH,PERTUSS(ACELL),TET 0.5 ML DISP.SYRIN IM ONE (10:00)
--- NOTE | 2018-07-18 14:54 | PN ---
Post Progress Note - Subjective Subjective: 27 yo Para 1 status post primary , seen and evaluated. Doing well. Post Day: 2 Type of Delivery: Primary C/S Vital Signs: Vital Signs Temperature 97.8 F 07/18/18 14:00 Pulse Rate 96 H 07/18/18 14:00 Respiratory Rate 20 07/18/18 14:00 Blood Pressure 137/101 H 07/18/18 14:00 O2 Sat by Pulse Oximetry (%) 100 07/16/18 09:45 Breast Exam: Yes: Soft Uterus: Yes: Fundus Firm Incision: Yes: Dressing dry and intact Abdomen/GI: Yes: Abdomen soft, Tolerating PO Lochia: Yes: Rubra Lochia, amount: Small Extremities: Yes: Calves non-tender Activity: Ambulating - Labs Labs: CBC WBC 9.7 K/mm3 (4.0-10.0) 07/17/18 07:45 RBC 3.50 M/mm3 (3.60-5.2) L 07/17/18 07:45 Hgb 11.2 GM/dL (10.7-15.3) 07/17/18 07:45 Hct 32.2 % (32.4-45.2) L 07/17/18 07:45 MCV 92.1 fl (80-96) 07/17/18 07:45 MCH 32.1 pg (25.7-33.7) 07/17/18 07:45 MCHC 34.9 g/dl (32.0-36.0) 07/17/18 07:45 RDW 14.4 % (11.6-15.6) 07/17/18 07:45 Plt Count 253 K/MM3 (134-434) 07/17/18 07:45 MPV 8.9 fl (7.5-11.1) 07/17/18 07:45 Absolute Neuts (auto) 8.4 K/mm3 (1.5-8.0) H 07/17/18 07:45 Neutrophils % 86.7 % (42.8-82.8) H 07/17/18 07:45 Lymphocytes % 6.5 % (8-40) L D 07/17/18 07:45 Monocytes % 6.4 % (3.8-10.2) 07/17/18 07:45 Eosinophils % 0.2 % (0-4.5) 07/17/18 07:45 Basophils % 0.2 % (0-2.0) 07/17/18 07:45 Nucleated RBC % 0 % (0-0) 07/17/18 07:45 Retic Count 1.97 % (0.5-1.5) H D 07/15/18 14:50 Haptoglobin 150 mg/dL (34-200) 07/15/18 14:50 Problem List - Problems (1) Status post primary low transverse section Code(s): Z98.891 - HISTORY OF UTERINE SCAR FROM PREVIOUS SURGERY Assessment/Plan Status post primary Ambulation Analgesia as needed Continue routine post op care
--- NOTE | 2018-07-18 16:06 | PN ---
Progress Note (short form) - Note Progress Note: Renal follow for hypertension Pt seen and examined at the bedside no acute complaints denies any HENSLEY, blurry vision, CP, dizziness Vital Signs Temperature 97.8 F 07/18/18 14:00 Pulse Rate 96 H 07/18/18 14:00 Respiratory Rate 20 07/18/18 14:00 Blood Pressure 137/101 H 07/18/18 14:00 O2 Sat by Pulse Oximetry (%) 100 07/16/18 09:45 Intake & Output 07/15/18 07/16/18 07/17/18 07/18/18 23:59 23:59 23:59 23:59 Intake Total 2200 4291 3700 Output Total 1050 4600 3850 800 Balance 1150 -309 -150 -800 Weight 91.172 kg NAD No LE edema CBC, BMP 07/17/18 07:45 07/17/18 07:45 Current Medications Acetaminophen (Tylenol -) 650 mg PO Q4H PRN PRN Reason: PAIN LEVEL 1-3 Last Admin: 07/18/18 08:45 Dose: 650 mg Bisacodyl (Dulcolax Suppository -) 10 mg RC PRN PRN PRN Reason: CONSTIPATION Enoxaparin Sodium (Lovenox -) 40 mg SQ DAILY [facility] Last Admin: 07/18/18 09:19 Dose: 40 mg Ferrous Sulfate (Feosol -) 325 mg PO BIDWM [facility] Last Admin: 07/18/18 08:43 Dose: 325 mg Ibuprofen (Motrin -) 600 mg PO Q4H PRN PRN Reason: PAIN 1 - 3;IF TYLENOL NT WRK Labetalol HCl (Normodyne -) 100 mg PO Q6HPO PRN PRN Reason: HYPERTENSION Last Admin: 07/18/18 11:45 Dose: 100 mg Methylergonovine Maleate (Methergine Injection -) 0.2 mg IM Q4H PRN PRN Reason: Excessive Bleeding (L&D) Ondansetron HCl (Zofran Injection) 4 mg IVPUSH Q4H PRN PRN Reason: NAUSEA Oxycodone HCl (Roxicodone -) 5 mg PO Q4H PRN PRN Reason: PAIN LEVEL 4 - 6 Last Admin: 07/18/18 01:42 Dose: 5 mg Oxycodone HCl (Roxicodone -) 10 mg PO Q4H PRN PRN Reason: PAIN LEVEL 7 - 10 Last Admin: 07/18/18 08:44 Dose: 10 mg Multivit/Folic Acid/Iron ( Vitamins (Sjr) -) 1 tab PO DAILY NESSA Last Admin: 07/18/18 09:19 Dose: 1 tab Senna/Docusate Sodium (Pericolace -) 2 tablet PO HS PRN PRN Reason: CONSTIPATION Last Admin: 07/17/18 21:20 Dose: 2 tablet Simethicone (Mylicon -) 80 mg PO Q4H PRN PRN Reason: GAS Last Admin: 07/18/18 08:46 Dose: 80 mg 27 year old woman with no significant past medical history who presented at 37 week gestation for following failed induction of labor with hypertension. #Gestational Hypertension/ hypertension w/o evidence of preeclamspia #37 weeks gestation s/p #Hypokalemia Continues to have diastolic hypertension If BP remains high going into this evening will change to Nifedpine ER to avoid too frequent medication dosing continue low salt diet avoid nsaids for pain control Sadi Dooley DO
[2018-07-18] MEDS: NIFEdipine E.R. 30 MG TABLET (FP) PO SCH (19:02)
[2018-07-19] MEDS: LABETALOL HCL 100 MG TABLET (FP) PO PRN ×2 (04:53→22:10)
[2018-07-19] MEDS: ACETAMINOPHEN 325 MG TABLET (FP) PO PRN ×3 (04:58→22:29)
[2018-07-19] MEDS: SIMETHICONE 80 MG TAB.CHEW (FP) PO PRN ×3 (04:58→22:29)
[2018-07-19] MEDS: oxyCODONE HCL 5 MG TABLET PO PRN ×3 (04:58→22:29)
[2018-07-19 07:37] LABS: BASO % 0.1 % (0-2.0); EOS % 1.6 % (0-4.5); HEMATOCRIT 33.4 % (32.4-45.2); HEMOGLOBIN 11.3 GM/dL (10.7-15.3); LYMPH % 14.1 % (8-40); MCH 31.2 pg (25.7-33.7); MCHC 33.8 g/dl (32.0-36.0); MEAN CELL VOLUME 92.4 fl (80-96); MEAN PLT VOLUME 8.4 fl (7.5-11.1); MONO % 8.1 % (3.8-10.2); NEUT % 76.1 % (42.8-82.8); PLATELET COUNT 336 K/MM3 (134-434); RBC 3.61 M/mm3 (3.60-5.2); RDW 14.4 % (11.6-15.6); WHITE BLOOD COUNT 6.8 K/mm3 (4.0-10.0)
[2018-07-19] MEDS: FERROUS SO4 325 MG TABLET (FP) PO SCH ×2 (09:09→19:06)
[2018-07-19] MEDS: ENOXAPARIN NA (PORCINE) 40 MG/0.4 ML DISP.SYRIN SQ SCH (09:42)
[2018-07-19] MEDS: NIFEdipine E.R. 30 MG TABLET (FP) PO SCH (09:43)
[2018-07-19] MEDS: PRENATAL VITAMINS W/ FOLIC ACID TABLET (FP) PO SCH (09:43)
--- NOTE | 2018-07-19 09:49 | PN ---
Post Progress Note - Subjective Subjective: c/o pain scale 7/10 , still takes oxycodone 10 mg twice at least no c/o headache bm done, voiding without difficulty Post Day: 3 Type of Delivery: Primary C/S Vital Signs: Vital Signs Temperature 97.9 F 07/18/18 22:00 Pulse Rate 99 H 07/19/18 04:54 Respiratory Rate 20 07/19/18 04:54 Blood Pressure 151/89 07/19/18 04:54 O2 Sat by Pulse Oximetry (%) 100 07/16/18 09:45 Selected Entries 07/18/18 07/18/18 07/18/18 06:00 07:50 07:52 Blood Pressure 150/102 H 137/107 H 150/94 07/18/18 07/18/18 07/18/18 11:45 14:00 18:00 Blood Pressure 132/91 137/101 H 148/108 H 07/18/18 07/18/18 07/19/18 22:00 22:05 00:23 Blood Pressure 161/85 138/86 139/88 today at 9.00AM 120/70 Breast Exam: Yes: Soft. No: Engorged, Other (bottle feeding ) Uterus: Yes: Fundus Firm, Fundus below umbilicus, Non-tender Incision: Yes: [place] intact. No: Redness, Oozing Abdomen/GI: Yes: Abdomen soft, Passing flatus (bm done ), Tolerating PO (diet). No: Abdominal Distention, Tender Lochia: Yes: Rubra Lochia, amount: Moderate Extremities: Yes: Calves non-tender Perineum: Yes: Intact Activity: Ambulating - Labs Labs: CBC WBC 6.8 K/mm3 (4.0-10.0) 07/19/18 07:00 RBC 3.61 M/mm3 (3.60-5.2) 07/19/18 07:00 Hgb 11.3 GM/dL (10.7-15.3) 07/19/18 07:00 Hct 33.4 % (32.4-45.2) 07/19/18 07:00 MCV 92.4 fl (80-96) 07/19/18 07:00 MCH 31.2 pg (25.7-33.7) 07/19/18 07:00 MCHC 33.8 g/dl (32.0-36.0) 07/19/18 07:00 RDW 14.4 % (11.6-15.6) 07/19/18 07:00 Plt Count 336 K/MM3 (134-434) D 07/19/18 07:00 MPV 8.4 fl (7.5-11.1) 07/19/18 07:00 Absolute Neuts (auto) 5.2 K/mm3 (1.5-8.0) 07/19/18 07:00 Neutrophils % 76.1 % (42.8-82.8) 07/19/18 07:00 Lymphocytes % 14.1 % (8-40) D 07/19/18 07:00 Monocytes % 8.1 % (3.8-10.2) 07/19/18 07:00 Eosinophils % 1.6 % (0-4.5) D 07/19/18 07:00 Basophils % 0.1 % (0-2.0) 07/19/18 07:00 Nucleated RBC % 0 % (0-0) 07/19/18 07:00 Retic Count 1.97 % (0.5-1.5) H D 07/15/18 14:50 Haptoglobin 150 mg/dL (34-200) 07/15/18 14:50 Other Findings, Remarks: rs cta out put adequate reflexes normal Problem List - Problems (1) with 37 weeks completed gestation Code(s): Z3A.37 - 37 WEEKS GESTATION OF (2) Gestational hypertension affecting first Code(s): O13.9 - GESTATIONAL HTN W/O SIGNIFICANT PROTEINURIA, UNSP TRIMESTER (3) Elective induction of labor planned Code(s): ULR4302 - (4) Failed induction of labor Code(s): O61.9 - FAILED INDUCTION OF LABOR, UNSPECIFIED Qualifiers: Failed induction of labor type: medical Qualified Code(s): O61.0 - Failed medical induction of labor (5) delivery delivered Code(s): O82 - ENCOUNTER FOR DELIVERY WITHOUT INDICATION Assessment/Plan po day#3 after primary c/section GHTN , not controlled until yesterday, still diastoic BP was [place] 110 meds have been changed to Nifedipine 30 XL since last evening Monitor today;s BP , if stable isrrael discharge tomorrow pending medical clearance remove rubens tomorrow
--- NOTE | 2018-07-19 12:27 | PN ---
Progress Note (short form) - Note Progress Note: Renal follow for hypertension Pt seen and examined at the bedside no acute complaints denies any HENSLEY, blurry vision, CP, dizziness required labetalol this am around 5 Vital Signs Temperature 97.9 F 07/18/18 22:00 Pulse Rate 99 H 07/19/18 04:54 Respiratory Rate 20 07/19/18 04:54 Blood Pressure 151/89 07/19/18 04:54 O2 Sat by Pulse Oximetry (%) 100 07/16/18 09:45 Intake & Output 07/16/18 07/17/18 07/18/18 07/19/18 23:59 23:59 23:59 23:59 Intake Total 4291 3700 Output Total 4600 3850 800 Balance -309 -150 -800 NAD No LE edema CBC, BMP 07/19/18 07:00 07/17/18 07:45 Current Medications Acetaminophen (Tylenol -) 650 mg PO Q4H PRN PRN Reason: PAIN LEVEL 1-3 Last Admin: 07/19/18 04:58 Dose: 650 mg Bisacodyl (Dulcolax Suppository -) 10 mg RC PRN PRN PRN Reason: CONSTIPATION Last Admin: 07/18/18 22:14 Dose: 10 mg Enoxaparin Sodium (Lovenox -) 40 mg SQ DAILY [facility] Last Admin: 07/19/18 09:42 Dose: 40 mg Ferrous Sulfate (Feosol -) 325 mg PO BIDWM [facility] Last Admin: 07/19/18 09:09 Dose: 325 mg Ibuprofen (Motrin -) 600 mg PO Q4H PRN PRN Reason: PAIN 1 - 3;IF TYLENOL NT WRK Labetalol HCl (Normodyne -) 200 mg PO Q6HPO PRN PRN Reason: HYPERTENSION Last Admin: 07/19/18 04:53 Dose: 200 mg Methylergonovine Maleate (Methergine Injection -) 0.2 mg IM Q4H PRN PRN Reason: Excessive Bleeding (L&D) Nifedipine (Procardia Xl -) 30 mg PO DAILY [facility] Last Admin: 07/19/18 09:43 Dose: 30 mg Ondansetron HCl (Zofran Injection) 4 mg IVPUSH Q4H PRN PRN Reason: NAUSEA Oxycodone HCl (Roxicodone -) 5 mg PO Q4H PRN PRN Reason: PAIN LEVEL 4 - 6 Last Admin: 07/18/18 01:42 Dose: 5 mg Oxycodone HCl (Roxicodone -) 10 mg PO Q4H PRN PRN Reason: PAIN LEVEL 7 - 10 Last Admin: 07/19/18 04:58 Dose: 10 mg Multivit/Folic Acid/Iron ( Vitamins (Sjr) -) 1 tab PO DAILY [facility] Last Admin: 07/19/18 09:43 Dose: 1 tab Senna/Docusate Sodium (Pericolace -) 2 tablet PO HS PRN PRN Reason: CONSTIPATION Last Admin: 07/17/18 21:20 Dose: 2 tablet Simethicone (Mylicon -) 80 mg PO Q4H PRN PRN Reason: GAS Last Admin: 07/19/18 04:58 Dose: 80 mg 27 year old woman with no significant past medical history who presented at 37 week gestation for following failed induction of labor with hypertension. #Gestational Hypertension/ hypertension w/o evidence of preeclamspia #37 weeks gestation s/p #Hypokalemia BP improved on nifedpine ER 30mg Daily continue labetalol PRN for SBP > 150 or DBP > 95 Low salt diet anticipate discharge tomorrow on oral antihypertensive medications Sadi Dooley DO
--- NOTE | 2018-07-20 06:49 | PN ---
Post Progress Note Type of Delivery: Primary C/S Vital Signs: Vital Signs Temperature 98.1 F 07/19/18 22:00 Pulse Rate 94 H 07/20/18 01:55 Respiratory Rate 20 07/20/18 01:55 Blood Pressure 142/88 07/20/18 01:55 O2 Sat by Pulse Oximetry (%) 100 07/16/18 09:45 Uterus: Yes: Fundus below umbilicus Incision: Yes: Dressing dry and intact Abdomen/GI: Yes: Abdomen soft Lochia, amount: Small Extremities: Yes: Calves non-tender Perineum: Yes: Intact - Labs Labs: CBC WBC 6.8 K/mm3 (4.0-10.0) 07/19/18 07:00 RBC 3.61 M/mm3 (3.60-5.2) 07/19/18 07:00 Hgb 11.3 GM/dL (10.7-15.3) 07/19/18 07:00 Hct 33.4 % (32.4-45.2) 07/19/18 07:00 MCV 92.4 fl (80-96) 07/19/18 07:00 MCH 31.2 pg (25.7-33.7) 07/19/18 07:00 MCHC 33.8 g/dl (32.0-36.0) 07/19/18 07:00 RDW 14.4 % (11.6-15.6) 07/19/18 07:00 Plt Count 336 K/MM3 (134-434) D 07/19/18 07:00 MPV 8.4 fl (7.5-11.1) 07/19/18 07:00 Absolute Neuts (auto) 5.2 K/mm3 (1.5-8.0) 07/19/18 07:00 Neutrophils % 76.1 % (42.8-82.8) 07/19/18 07:00 Lymphocytes % 14.1 % (8-40) D 07/19/18 07:00 Monocytes % 8.1 % (3.8-10.2) 07/19/18 07:00 Eosinophils % 1.6 % (0-4.5) D 07/19/18 07:00 Basophils % 0.1 % (0-2.0) 07/19/18 07:00 Nucleated RBC % 0 % (0-0) 07/19/18 07:00 Retic Count 1.97 % (0.5-1.5) H D 07/15/18 14:50 Haptoglobin 150 mg/dL (34-200) 07/15/18 14:50 Assessment/Plan 27yo s/p PLTCS, c/b GHTN. POD#4 Routine PP care Continue anti-HTN meds Vitals reviewed DC to home today wi BP check in one week Elmer Pavon
[2018-07-20] MEDS: FERROUS SO4 325 MG TABLET (FP) PO SCH (07:56)
[2018-07-20] MEDS: ACETAMINOPHEN 325 MG TABLET (FP) PO PRN (08:30)
[2018-07-20] MEDS: SIMETHICONE 80 MG TAB.CHEW (FP) PO PRN (08:30)
[2018-07-20] MEDS: oxyCODONE HCL 5 MG TABLET PO PRN (08:31)
[2018-07-20] MEDS: ENOXAPARIN NA (PORCINE) 40 MG/0.4 ML DISP.SYRIN SQ SCH (10:19)
[2018-07-20] MEDS: PRENATAL VITAMINS W/ FOLIC ACID TABLET (FP) PO SCH (10:19)
[2018-07-20] MEDS: NIFEdipine E.R. 30 MG TABLET (FP) PO SCH (10:21)
--- NOTE | 2018-07-20 11:44 | DS ---
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 No: Distention ...Rectal Exam: Yes: WNL Renal/: Yes: WNL, Other (voiding without problems) ....Post : Yes: Uterus firm, Uterus non-tender, Moderate lochia rubra Breast(s): Yes: WNL (breast not engorged. bottle feeding) Musculoskeletal: Yes: WNL Extremities: Yes: WNL. No: Calf Tenderness Edema: Yes Edema: LLE: 1+, RLE: 1+ Integumentary: Yes: Tattoos Wound/Incision: Yes: Clean/Dry, Well Approximated, Steri Strips, [place] Removed. No: Reddened, Bleeding, Excoriated Neurological: Yes: WNL, Alert, Oriented ...Motor Strength: WNL Psychiatric: Yes: WNL, Alert, Oriented Labs: CBC, BMP 07/19/18 07:00 07/17/18 07:45 Delivery - Delivery Section: Primary, Low Flap Transverse (Indication : 37.3 weks, Gestational Hypertension, Failed Induction of Labor) Type of Anesthesia: Spinal Episiotomy/Laceration: None EBL (cc): 500 (150 ml benja color ) Delivery, Single - Stages of Labor Date of Delivery: 07/16/18 Time of Delivery: 07:45 Time Placenta Delivered: 07:46 Placenta: Yes: Spontaneous, Uterine Exploration - Condition of Infant Patient Information Coordinator/Consulting Services Project Manager Present: Yes Name: EdCarroll Gender: Male Weight: 6 lb 8 oz Position: Left Total Hours ROM (Hrs/Mins): 1 min - 1 Minute Total Score: 9 5 Minutes Total Score: 9 - Feeding Plan Initial Plan: Elected not to breastfeed exclusively throughout hospitalization Remarks - Remarks Remarks: 27 yrs , 37.2 weeks admitted due to gestational hypertension symptomatic with persistent headache & nausea on 07/15/18 HELLP work up wnl , Preclempsia ruled out GBS neg Cervidil insertion inserted on 07/15/18 Po labetalol 100 mg q6h given for BP management IV 10 meq KCL x2 doses given for hypkalemia K 3.3 Intraop course uneventful Plan ct post op Labetalol PO post op BP elevations were noted , diastoloc max 108 , systolic -bp max 160 Dr Dooley consult was requested. labetalol was switched to Nifedipine 30XL daiy. BP stable & discharged with Nifidipine 30 xl will follow for BP with Dr Dooley discharge today after medical clearance post op instructions given Discharge Summary Reason For Visit: GESTATIONAL HYPERTENTION Current Active Problems delivery delivered (Acute) Elective induction of labor planned (Acute) Failed induction of labor (Acute) Gestational hypertension affecting first (Acute) with 37 weeks completed gestation (Acute) Status post primary low transverse section (Acute) Condition: Stable - Instructions Diet, Activity, Other Instructions: Post Instructions DIET: Continue good diet high in protein, calcium, and iron rich foods. Drink at least eight (8) glasses of water daily in addition to other fluids. ___ Regular diet, preferably lo salt diet ___ ___ MEDICATIONS: Continue vitamins and iron as previously directed. Motrin and Tylenol may be taken for minor discomfort. ACTIVITY: Mild to moderate exercise may be started in two (2) weeks. Take frequent rest periods. Resume normal activity after six (6) week check up. WOUND CARE OF OPERATIVE SITE: Continue use of perineal bottle until vaginal discharge stops. Keep area clean. Shower daily. Keep abdominal wound dry. Report any drainage or redness to physician. Tub baths, tampons and douches are not permitted for [address] Breast feeding & or Bottle feeding BREAST CARE: (For those that are not breast feeding): If engorgement occurs: Wear tight fitting bra. Take Tylenol or Motrin for pain. Apply cold packs (ice in bags to each breast ) FAMILY PLANNING: There are many control alternatives to pursue and they should be discussed at your first office visit. You may resume sexual activity after your six (6) week check up. (Remember, breast feeding is not a contraceptive) NEXT PHYSICIAN APPOINTMENT: Be certain to call for a one (1) week appointment, unless otherwise directed. wound check Follow [facility] Dr Miah Avitia for hypertension Call Clinic or got to Emergency Dept if you have any of the following: Heavy vaginal bleeding Painful urination Leg pain Unusual odor noted to vaginal bleeding High fever Red streaking noted on breast Referrals: Madalyn Lincoln MD [Staff Physician] - Sadi Dooley MD [Staff Physician] - Disposition: HOME - Home Medications Comprehensive Discharge Medication List: Ambulatory Orders Ferrous Sulfate [Iron] 325 mg PO DAILY 04/23/18 Vitamins (Sjr) - 1 tab PO BID 04/23/18 Acetaminophen [Tylenol .Regular Strength -] 500 mg PO Q4H PRN #30 tablet Ferrous Sulfate [Feosol] 325 mg PO BIDWM #60 tab 07/19/18 Vitamins (Sjr) - 1 tab PO DAILY #30 tablet 07/19/18 oxyCODONE HCL [Roxicodone -] 5 mg PO Q4H PRN #30 tablet MDD 30 mg 07/19/18 Nifedipine ER [Procardia XL -] 30 mg PO DAILY #30 tab.er.24 07/20/18
[2018-07-20 11:47] VITALS: TEMP 98.6
[2018-07-20 11:48] VITALS: BP 138/93; PULSE 101
--- NOTE | 2018-07-20 12:30 | PN ---
Progress Note (short form) - Note Progress Note: Renal follow for hypertension Pt seen and examined at the bedside no complaints no HENSLEY, blurry vision, CP, SOB Bp is better Vital Signs Temperature 98.6 F 07/20/18 08:00 Pulse Rate 101 H 07/20/18 10:00 Respiratory Rate 20 07/20/18 10:00 Blood Pressure 138/93 07/20/18 10:00 O2 Sat by Pulse Oximetry (%) 100 07/16/18 09:45 Intake & Output 07/17/18 07/18/18 07/19/18 07/20/18 23:59 23:59 23:59 23:59 Intake Total 3700 Output Total 3850 800 Balance -150 -800 NAD No LE edema CBC, BMP 07/19/18 07:00 07/17/18 07:45 Current Medications Acetaminophen (Tylenol -) 650 mg PO Q4H PRN PRN Reason: PAIN LEVEL 1-3 Last Admin: 07/20/18 08:30 Dose: 650 mg Bisacodyl (Dulcolax Suppository -) 10 mg RC PRN PRN PRN Reason: CONSTIPATION Last Admin: 07/18/18 22:14 Dose: 10 mg Enoxaparin Sodium (Lovenox -) 40 mg SQ DAILY [facility] Last Admin: 07/20/18 10:19 Dose: 40 mg Ferrous Sulfate (Feosol -) 325 mg PO BIDWM [facility] Last Admin: 07/20/18 07:56 Dose: 325 mg Ibuprofen (Motrin -) 600 mg PO Q4H PRN PRN Reason: PAIN 1 - 3;IF TYLENOL NT WRK Labetalol HCl (Normodyne -) 200 mg PO Q6HPO PRN PRN Reason: HYPERTENSION Last Admin: 07/19/18 22:10 Dose: 200 mg Methylergonovine Maleate (Methergine Injection -) 0.2 mg IM Q4H PRN PRN Reason: Excessive Bleeding (L&D) Nifedipine (Procardia Xl -) 30 mg PO DAILY [facility] Last Admin: 07/20/18 10:21 Dose: 30 mg Ondansetron HCl (Zofran Injection) 4 mg IVPUSH Q4H PRN PRN Reason: NAUSEA Oxycodone HCl (Roxicodone -) 5 mg PO Q4H PRN PRN Reason: PAIN LEVEL 4 - 6 Last Admin: 07/18/18 01:42 Dose: 5 mg Oxycodone HCl (Roxicodone -) 10 mg PO Q4H PRN PRN Reason: PAIN LEVEL 7 - 10 Last Admin: 07/20/18 08:31 Dose: 10 mg Multivit/Folic Acid/Iron ( Vitamins (Sjr) -) 1 tab PO DAILY [facility] Last Admin: 07/20/18 10:19 Dose: 1 tab Senna/Docusate Sodium (Pericolace -) 2 tablet PO HS PRN PRN Reason: CONSTIPATION Last Admin: 07/17/18 21:20 Dose: 2 tablet Simethicone (Mylicon -) 80 mg PO Q4H PRN PRN Reason: GAS Last Admin: 07/20/18 08:30 Dose: 80 mg 27 year old woman with no significant past medical history who presented at 37 week gestation for following failed induction of labor with hypertension. #Gestational Hypertension/ hypertension w/o evidence of preeclamspia #37 weeks gestation s/p BP improved and stable can be discharged on nifedpine ER 30mg Daily advised to obtain a BP cuff and monitor and records BP twice daily informed pt of symptoms of hypotension and what to do if she felt them to follow up in our office in 2 weeks for BP monitoring Sadi Dooley DO
--- NOTE | 2018-07-26 16:54 | PATH ---
Surgical Pathology Report Patient Name: CLARITZA FRITZ Med. Rec. 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 Specimen(s) Received PLACENTA Clinical History , 37.3 weeks, failed induction, gestational hypertension Final Diagnosis PLACENTA, SECTION: 518 G THIRD TRIMESTER PLACENTA WITH TRIVASCULAR UMBILICAL CORD AND UNREMARKABLE PLACENTAL MEMBRANES. Electronically Signed Krista Monk M.D. Gross Description The specimen is received fresh labeled placenta and is a 518 gram, 16.0 x 12.5 x 4.0 cm. placenta with attached membranes and umbilical cord. The attached membranes are caro, translucent with focal opacities and insert marginally. The umbilical cord measures 15 cm. in length and averages 1.2 cm. in diameter. The cord inserts eccentrically, 3 cm. to the nearest margin. No true knots or strictures are identified. Cut surface of the umbilical cord reveals 3 vessels. The surface is price blue with moderate fibrin deposition and appropriate caliber vessels. The maternal surface is red-brown with focal defects. Sectioning reveals red-brown, spongy parenchyma. No lesions are identified. [employer] sections are submitted in three cassettes as follows: 1- membrane rolls and umbilical cord; 2-3- full thickness sections of placenta. /07/25/2018 saudi07/25/2018
== END 2018-07-20 13:00 | disposition home or self-care (01) | DRG 540 ==
LOC: JDEL 13:00 → JLDR 14:05 → J3W 07-16 10:10 → JLDR 07-16 17:05 → J3W 07-17 09:00
PROVIDERS: ADMIT Obstetrics & Gynecology; ATTEND Obstetrics & Gynecology
PROC: 3E0P7VZ Introduction of Hormone into Female Reproductive, Via Natural or Artificial Opening (ICD-10-PCS; 2018-07-15)
PROC: 10D00Z1 Extraction of Products of Conception, Low, Open Approach (ICD-10-PCS; principal; 2018-07-16)
DX: O61.0 Failed medical induction of labor (principal); O13.3 Gestational [pregnancy-induced] hypertension without significant proteinuria, third trimester; Z3A.37 37 weeks gestation of pregnancy; O26.893 Other specified pregnancy related conditions, third trimester; E87.6 Hypokalemia; Z37.0 Single live birth
CPT/HCPCS: 36415; 36600; 80048; 80053; 81003; 82570; 82803; 82977; 83010; 83735; 84156; 84550; 85025; 85044; 85610; 85730; 86593; 86850; 86900; 86901; 87081; 88307-TC; 90715; J0131

== ENCOUNTER 2018-12-13 16:14 | Emergency (ER) | payer OTHER ==
[2018-12-13 16:29] VITALS: BP 148/90; PULSE 94; TEMP 98.1; BMI 33.3
--- NOTE | 2018-12-13 16:48 | PDOC ---
History of Present Illness - General Chief Complaint: Lightheaded Stated Complaint: HEADACHE Time Seen by Provider: 12/13/18 16:47 Past History - Past Medical History Allergies/Adverse Reactions: Allergies Allergy/AdvReac Type Severity Reaction Status Date / Time No Known Allergies Allergy Verified 07/15/18 15:01 Home Medications: Ambulatory Orders Ferrous Sulfate [Iron] 325 mg PO DAILY 04/23/18 Vitamins (Sjr) - 1 tab PO BID 04/23/18 Acetaminophen [Tylenol .Regular Strength -] 500 mg PO Q4H PRN #30 tablet Ferrous Sulfate [Feosol] 325 mg PO BIDWM #60 tab 07/19/18 Vitamins (Sjr) - 1 tab PO DAILY #30 tablet 07/19/18 oxyCODONE HCL [Roxicodone -] 5 mg PO Q4H PRN #30 tablet MDD 30 mg 07/19/18 Nifedipine ER [Procardia XL -] 30 mg PO DAILY #30 tab.er.24 07/20/18 Asthma: No Cancer: No Cardiac Disorders: No COPD: No Diabetes: No HTN: Yes (gestational hypertension) Seizures: No Thyroid Disease: No - Immunization History Immunization Up to Date: Yes - Suicide/Smoking/Psychosocial Hx Smoking History: Never smoked Have you smoked in the past 12 months: No Information on smoking cessation initiated: No Hx Alcohol Use: No Drug/Substance Use Hx: No Substance Use Type: None Hx Substance Use Treatment: No *Physical Exam - Vital Signs Last Vital Signs Temp Pulse Resp BP Pulse Ox 98.1 F 94 H 18 148/90 99 12/13/18 16:26 12/13/18 16:26 12/13/18 16:26 12/13/18 16:26 12/13/18 16:26 ED Treatment Course - LABORATORY CBC & Chemistry Diagram: 12/13/18 18:30 12/13/18 18:30 Medical Decision Making - Medical Decision Making 12/13/18 16:48 27 yo, 5 months post , gestational HTN, no longer on meds, here with new onset headache. Patient complaining of R tenriism/retro-orbital pain 4 days, throbbing in nature, 10/10 and constant w/ no exacerbating factors and not relieved w/ alleve. Also reports nausea and b/l blurry vision. No vomiting, dizziness, slurred speech, focal weakness, sezires. AMS, CP, SOB or abd pain. Patient states she checked her blood pressure at home and highest was 180s over 179 today See exam New onset HENSLEY Low suspicion for post- pre-eclampsia given time out from delivery, ? migrainous vs tension, consider ICH given elevated BP at home (does not carry dx of HTN but did have gestational HTN, no longer on meds) Stable and well jessica here w/ intact neuro exam -pain control -labs -CTH -reassess 12/13/18 18:58 Signed out to SOL Vasquez pending w/u *DC/Admit/Observation/Transfer - Discharge Dispostion Condition at time of disposition: Stable - Referrals - Patient Instructions - Post Discharge Activity
[2018-12-13] MEDS ORDERED: METOCLOPRAMIDE HCL INJECTION 10 MG/2 ML VIAL IVPB ONE (16:55)
[2018-12-13] MEDS ORDERED: ACETAMINOPHEN 1000 MG/100 ML VIAL (NON FORMULARY) IVPB ONE (16:56)
[2018-12-13] MEDS ORDERED: ACETAMINOPHEN INJECTION 100 ML IVPB ONE (18:16)
[2018-12-13] MEDS ORDERED: METOCLOPRAMIDE HCL INJECTION 10 MG/2 ML VIAL ONE (18:16)
[2018-12-13 18:46] LABS: BASO % 0.4 % (0-2.0); HEMATOCRIT 37.3 % (32.4-45.2); HEMOGLOBIN 12.5 GM/dL (10.7-15.3); LYMPH % 30.7 % (8-40); MCH 30.3 pg (25.7-33.7); MCHC 33.6 g/dl (32.0-36.0); MEAN CELL VOLUME 90.2 fl (80-96); MEAN PLT VOLUME 7.9 fl (7.5-11.1); MONO % 6.9 % (3.8-10.2); PLATELET COUNT 347 K/MM3 (134-434); RBC 4.13 M/mm3 (3.60-5.2); RDW 14.6 % (11.6-15.6); WHITE BLOOD COUNT 4.1 K/mm3 (4.0-10.0)
[2018-12-13 19:11] LABS: BILIRUBIN,TOTAL 0.4 mg/dL (0.2-1); BLOOD UREA NITROGEN 12.7 mg/dL (7-18); CALCIUM 8.8 mg/dL (8.5-10.1); CREATININE 0.7 mg/dL (0.55-1.3); POTASSIUM 3.9 mmol/L (3.5-5.1); TOT PROT 8.1 g/dl (6.4-8.2)
--- NOTE | 2018-12-13 19:42 | PDOC ---
*Physical Exam - Vital Signs Last Vital Signs Temp Pulse Resp BP Pulse Ox 98.1 F 94 H 18 148/90 99 12/13/18 16:26 12/13/18 16:26 12/13/18 16:26 12/13/18 16:26 12/13/18 16:26 - Physical Exam General Appearance: Yes: Nourished, Appropriately Dressed HEENT: positive: Normal ENT Inspection Neck: positive: Supple Respiratory/Chest: positive: Normal Breath Sounds, Accessory Muscle Use Cardiovascular: positive: Regular Rhythm, Regular Rate Musculoskeletal: positive: Normal Inspection Extremity: positive: Normal Inspection Neurologic: positive: Fully Oriented, Alert, Normal Mood/Affect, Normal Response ED Treatment Course - LABORATORY CBC & Chemistry Diagram: 12/13/18 18:30 12/13/18 18:30 - ADDITIONAL ORDERS Additional order review: Laboratory Results 12/13/18 18:30 Sodium 139 Potassium 3.9 Chloride 106 Carbon Dioxide 27 Anion Gap 7 L BUN 12.7 Creatinine 0.7 Est GFR (CKD-EPI)AfAm 138.59 Est GFR (CKD-EPI)NonAf 119.58 Random Glucose 76 Calcium 8.8 Total Bilirubin 0.4 AST 21 ALT 47 Alkaline Phosphatase 78 Total Protein 8.1 Albumin 4.0 12/13/18 18:30 RBC 4.13 MCV 90.2 MCHC 33.6 RDW 14.6 MPV 7.9 Neutrophils % 61.0 Lymphocytes % 30.7 D Monocytes % 6.9 Eosinophils % 1.0 Basophils % 0.4 D - Medications Given in the ED: ED Medications Discontinued Medications Generic Name Dose Route Start Last Admin Trade Name Freq PRN Reason Stop Dose Admin Acetaminophen 1,000 mg 12/13/18 16:56 12/13/18 18:33 Ofirmev Injection - IVPB 12/13/18 16:57 1,000 mg ONCE ONE Administration Metoclopramide HCl 10 mg 12/13/18 16:55 12/13/18 18:33 Reglan Injection - IVPB 12/13/18 16:56 10 mg ONCE ONE Administration Medical Decision Making - Medical Decision Making 12/13/18 20:00 I assumed care of this 27-year-old female 5 months with complaint of headache and elevated blood pressure home since this morning. Head CT done which reading is pending. Patient decided to sign out AMA as she needs to go take care of her child due to babysitting issue. Risk of signing out AMA including worsening headache, syncope and worsening dizziness explained to patient and patient voice understanding and sign AMA form. Patient advised to come back if worsening symptoms 12/13/18 20:02 Patient reported improved headache and blood pressure within normal range. Patient is stable and capable of signing out AMA *DC/Admit/Observation/Transfer Diagnosis at time of Disposition: Light-headed feeling Headache Qualifiers: Headache type: unspecified Headache chronicity pattern: acute headache Intractability: not intractable Qualified Code(s): R51 - Headache - Discharge Dispostion Disposition: AGAINST MEDICAL ADVICE Condition at time of disposition: Stable - Referrals - Patient Instructions - Post Discharge Activity Forms/Work/School Notes: Back to Work
== END 2018-12-13 19:57 | disposition left against medical advice (07) ==
LOC: JER 16:14
DX: I10 Essential (primary) hypertension (principal); O24.420 Gestational diabetes mellitus in childbirth, diet controlled
CPT/HCPCS: 36415; 70450-TC; 80053; 84703; 85025; 99281-25; J0131

== ENCOUNTER 2019-02-25 08:51 | Emergency (ER) | payer OTHER ==
[2019-02-25 08:54] VITALS: TEMP 98.2; BMI 33.3
--- NOTE | 2019-02-25 09:24 | PDOC ---
History of Present Illness - General Chief Complaint: Pain Stated Complaint: ABD PAIN Time Seen by Provider: 02/25/19 09:22 Past History - Past Medical History Allergies/Adverse Reactions: Allergies Allergy/AdvReac Type Severity Reaction Status Date / Time No Known Allergies Allergy Verified 02/25/19 08:54 Home Medications: Ambulatory Orders Ferrous Sulfate [Iron] 325 mg PO DAILY 04/23/18 Vitamins (Sjr) - 1 tab PO BID 04/23/18 Acetaminophen [Tylenol .Regular Strength -] 500 mg PO Q4H PRN #30 tablet Ferrous Sulfate [Feosol] 325 mg PO BIDWM #60 tab 07/19/18 Vitamins (Sjr) - 1 tab PO DAILY #30 tablet 07/19/18 oxyCODONE HCL [Roxicodone -] 5 mg PO Q4H PRN #30 tablet MDD 30 mg 07/19/18 Nifedipine ER [Procardia XL -] 30 mg PO DAILY #30 tab.er.24 07/20/18 Asthma: No Cancer: No Cardiac Disorders: No COPD: No Diabetes: No HTN: Yes (gestational hypertension) Seizures: No Thyroid Disease: No - Immunization History Immunization Up to Date: Yes - Suicide/Smoking/Psychosocial Hx Smoking History: Never smoked Have you smoked in the past 12 months: No Hx Alcohol Use: No Drug/Substance Use Hx: No Substance Use Type: None Hx Substance Use Treatment: No *Physical Exam - Vital Signs Last Vital Signs Temp Pulse Resp BP Pulse Ox 98.2 F 96 H 18 143/107 H 98 02/25/19 08:52 02/25/19 08:52 02/25/19 08:52 02/25/19 08:52 02/25/19 08:52
[2019-02-25] MEDS ORDERED: SODIUM CHLORIDE 1,000 ML IV SCH (09:30)
[2019-02-25] MEDS ORDERED: ACETAMINOPHEN 1000 MG/100 ML VIAL (NON FORMULARY) IVPB ONE (09:53)
[2019-02-25] MEDS ORDERED: ONDANSETRON 4 MG/2 ML VIAL IVPB ONE (09:53)
[2019-02-25] MEDS ORDERED: ONDANSETRON 4 MG/2 ML VIAL ONE (10:02)
[2019-02-25] MEDS ORDERED: FAMOTIDINE 20 MG/50 ML IVPB 20 MG/50 ML MG IVPB ONE ×2 (10:02→10:30)
[2019-02-25] MEDS ORDERED: ACETAMINOPHEN INJECTION 100 ML IVPB ONE (10:02)
[2019-02-25 10:12] LABS: BASO % 0.5 % (0-2.0); EOS % 1.1 % (0-4.5); HEMATOCRIT 36.4 % (32.4-45.2); HEMOGLOBIN 12.3 GM/dL (10.7-15.3); LYMPH % 17.7 % (8-40); MCH 30.1 pg (25.7-33.7); MCHC 33.9 g/dl (32.0-36.0); MEAN PLT VOLUME 8.7 fl (7.5-11.1); NEUT % 74.7 % (42.8-82.8); PLATELET COUNT 415 K/MM3 (134-434); RDW 14.7 % (11.6-15.6); WHITE BLOOD COUNT 5.2 K/mm3 (4.0-10.0)
--- NOTE | 2019-02-25 10:35 | PDOC ---
Documentation entered by Lucia Trujillo SCRIBE, acting as scribe for Dino Bacon MD. Dino Bacon MD: This documentation has been prepared by the Ronnie alberts Nirvannie, SCRIBE, under my direction and personally reviewed by me in its entirety. I confirm that the documentation accurately reflects all work, treatment, procedures, and medical decision making performed by me. History of Present Illness - General Chief Complaint: Pain Stated Complaint: ABD PAIN Time Seen by Provider: 02/25/19 09:22 History Source: Patient Exam Limitations: No Limitations - History of Present Illness Initial Comments: 02/25/19 10:29 The patient is a 28 year old female, with a significant past medical history of gestational diabetes, who presents to the emergency department with 1 day of epigastric pain, with associated nausea and 6 episodes of emesis. Pt reports pain is non-radiating, constant. No flank pain. No lower abdominal pain. She denies any abnormal vaginal bleeding or discharge. She denies recent fevers , chills, headache or dizziness. She denies recent diarrhea or constipation. She denies recent dysuria, frequency, urgency or hematuria. She denies recent chest pain or shortness of breath. Allergies: NKDA Past History - Past Medical History Allergies/Adverse Reactions: Allergies Allergy/AdvReac Type Severity Reaction Status Date / Time No Known Allergies Allergy Verified 02/25/19 08:54 Home Medications: Ambulatory Orders NK [No Known Home Medication] 02/25/19 Asthma: No Cancer: No Cardiac Disorders: No COPD: No Diabetes: No HTN: Yes (gestational hypertension) Seizures: No Thyroid Disease: No - Immunization History Immunization Up to Date: Yes - Suicide/Smoking/Psychosocial Hx Smoking History: Never smoked Have you smoked in the past 12 months: No Hx Alcohol Use: No Drug/Substance Use Hx: No Substance Use Type: None Hx Substance Use Treatment: No Review of Systems - Review of Systems Able to Perform ROS?: Yes Comments:: 02/25/19 10:29 GENERAL/CONSTITUTIONAL: No fever or chills. No weakness. HEAD, EYES, EARS, NOSE AND THROAT: No change in vision. No ear pain or discharge. No sore throat. CARDIOVASCULAR: No chest pain, no shortness of breath, no loss of consciousness RESPIRATORY: No cough, wheezing, or hemoptysis. GASTROINTESTINAL: +Epigastric pain, + nausea, +vomiting. No diarrhea or constipation. GENITOURINARY: No dysuria, frequency, or change in urination. MUSCULOSKELETAL: No joint or muscle swelling or pain. No neck or back pain. SKIN: No rash NEUROLOGIC: No vertigo, no change in strength/sensation. ENDOCRINE: No increased thirst. No abnormal weight change. HEMATOLOGIC/LYMPHATIC: No anemia, easy bleeding, or history of blood clots. ALLERGIC/IMMUNOLOGIC: No hives or skin allergy. *Physical Exam - Vital Signs Last Vital Signs Temp Pulse Resp BP Pulse Ox 98.2 F 96 H 18 143/107 H 98 02/25/19 08:52 02/25/19 08:52 02/25/19 08:52 02/25/19 08:52 02/25/19 08:52 - Physical Exam Comments: 02/25/19 10:36 "GENERAL: Awake, alert, and fully oriented, in no acute distress. HEAD: No signs of trauma EYES: PERRLA, EOMI, sclera anicteric, conjunctiva clear ENT: Auricles normal inspection, hearing grossly normal, nares patent, oropharynx clear without exudates. Moist mucosa NECK: Nontender, no stepoffs, Normal ROM, supple, no lymphadenopathy, JVD, or masses LUNGS: Breath sounds equal, clear to auscultation bilaterally. No wheezes, and no crackles HEART: Regular rate and rhythm, normal S1 and S2, no murmurs, rubs or gallops ABDOMEN: + epigastric + RUQ TTP, normoactive bowel sounds. No guarding, no rebound. No masses EXTREMITIES: Normal range of motion, no edema. No clubbing or cyanosis. No cords, erythema, or tenderness NEUROLOGICAL: Cranial nerves II through XII intact. 5/5 strength and sensation in all extremities, Normal speech, normal gait, normal cerebellar function SKIN: Warm, Dry, normal turgor, no rashes or lesions noted. ED Treatment Course - LABORATORY CBC & Chemistry Diagram: 02/25/19 09:54 02/25/19 09:54 Medical Decision Making - Medical Decision Making 02/25/19 10:36 28 F with epigastric pain, N+V. Suspect gastritis vs PUD. Will evaluate for [place] given RUQ tenderness on exam. - Labs, lipase - RUQ sono - GI cocktail, fluids 02/25/19 13:24 Labs notable for mild transaminitis. Pt denies ETOH/tylenol use. US unremarkable Pt reassessed - now feels much better s/p GI meds. Tolerating PO Pt is well appearing, with normal vitals. Clinically stable for DC at this time. I discussed the physical exam findings, ancillary test results and final diagnoses with the patient. I answered all of the patient's questions. The patient was satisfied with the care received and felt comfortable with the discharge plan and treatment plan. The patient agrees to follow up with the primary care physician within 24-72 hours. *DC/Admit/Observation/Transfer Diagnosis at time of Disposition: Abdominal pain, Nausea & vomiting - Discharge Dispostion Disposition: HOME - Referrals Referrals: Moustapha Pierre MD [Primary Care Provider] - Nicolás Harris MD [Staff Physician] - - Patient Instructions Printed Discharge Instructions: Nausea and Vomiting-Adult Additional Instructions: Your bloodwork today showed that your liver enzymes were slightly elevated. This is sometimes a sign of liver damage. You MUST follow up with your primary doctor within 72 hours to have this rechecked. Take the omeprazole daily to help with your pain. Call the number provided to make an appointment with a GI doctor for further evaluation of your pain. If you experience worsening pain, fevers, vomiting, or any other concerning symptoms, return to the ER immediately. - Post Discharge Activity - Transfer to Acute Care Facility Transfer comment: 02/25/19 13:27 I, Dr. Dino Bacon MD, attest that this document has been prepared under my direction and personally reviewed by me in its entirety. I further attest, that it accurately reflects all work, treatment, procedures and medical decision -making performed by me.
[2019-02-25 10:47] LABS: EPI CELLS 11.8 /HPF (0-5/HPF); HYALINE CASTS 8 /lpf (0-8); URINE APPEARANCE CLOUDY; URINE BACTERIA 213.8 /hpf (NEGATIVE); URINE BILIRUBIN NEGATIVE (NEGATIVE); URINE COLOR YELLOW; URINE GLUCOSE (UA) NEGATIVE (NEGATIVE); URINE KETONE NEGATIVE (NEGATIVE); URINE LEUK ESTERASE NEGATIVE (NEGATIVE); URINE NITRITE NEGATIVE (NEGATIVE); URINE PROTEIN 3+ (NEGATIVE); URINE WBC 5 /hpf (0-5)
[2019-02-25 10:48] LABS: BILIRUBIN,TOTAL 0.4 mg/dL (0.2-1); BLOOD UREA NITROGEN 8.6 mg/dL (7-18); CALCIUM 9.4 mg/dL (8.5-10.1); CREATININE 0.7 mg/dL (0.55-1.3); POTASSIUM 4.5 mmol/L (3.5-5.1); TOT PROT 8.1 g/dl (6.4-8.2)
--- NOTE | 2019-02-25 11:23 | EKG ---
Test Reason : Blood Pressure : / mmHG Vent. Rate : 088 BPM Atrial Rate : 088 BPM P-R Int : 150 ms QRS Dur : 080 ms QT Int : 358 ms P-R-T Axes : 038 022 043 degrees QTc Int : 433 ms POOR DATA QUALITY, INTERPRETATION MAY BE ADVERSELY AFFECTED NORMAL SINUS RHYTHM NORMAL ECG NO PREVIOUS ECGS AVAILABLE Confirmed by HOMER POOLE, ALETHA ([id number]) on 02/25/2019 11:23:45 AM Referred By: Confirmed By:ALETHA CORONEL MD
[2019-02-25] MEDS ORDERED: MAG HYDROX/AL HYDROX/SIMETH 30 ML UNIT-DOSE CUP PO ONE (11:56)
[2019-02-25 12:05] LABS: URINE RBC 0 /hpf (0-4)
[2019-02-25] MEDS ORDERED: MAG HYDROX/AL HYDROX/SIMETH 30 ML UNIT-DOSE CUP ONE (12:37)
[2019-02-25 12:43] VITALS: BP 106/70; PULSE 81
== END 2019-02-25 13:47 | disposition home or self-care (01) ==
LOC: JER 08:51
PROC: 3E033GC Introduction of Other Therapeutic Substance into Peripheral Vein, Percutaneous Approach (ICD-10-PCS; principal; 2019-02-25)
PROC: 3E033GC Introduction of Other Therapeutic Substance into Peripheral Vein, Percutaneous Approach (ICD-10-PCS; 2019-02-25)
PROC: 3E033NZ Introduction of Analgesics, Hypnotics, Sedatives into Peripheral Vein, Percutaneous Approach (ICD-10-PCS; 2019-02-25)
DX: R10.9 Unspecified abdominal pain (principal); Z86.32 Personal history of gestational diabetes
CPT/HCPCS: 36415; 71046-TC-FY; 76705-TC; 80053; 81003; 82550; 82553; 83690; 84484; 84703; 85025; 87086; 93005; 93010; 96365; 96375; 99283-25; J0131; J7030

== ENCOUNTER 2019-12-30 10:26 | Inpatient (IN) | payer OTHER ==
[2019-12-30] MEDS ORDERED: FAMOTIDINE 20 MG/50 ML IVPB 20 MG/50 ML MG IVPB ONE ×2 (10:49→11:01)
[2019-12-30] MEDS ORDERED: SODIUM CHLORIDE 0.9% 500 ML INFUS.BAG IV ONE (10:49)
[2019-12-30] MEDS ORDERED: KETOROLAC TROMETHAMINE 30 MG/1 ML VIAL IVPUSH ONE (10:49)
[2019-12-30] MEDS ORDERED: ONDANSETRON 4 MG/2 ML VIAL IVPUSH ONE ×2 (10:51→14:43)
--- NOTE | 2019-12-30 10:57 | PDOC ---
History of Present Illness - General History Source: Patient Exam Limitations: No Limitations - History of Present Illness Initial Comments: 12/30/19 10:52 Patient is a 29-year-old female with no past medical history here with complaints of upper abdominal pain which started about 3 AM this morning. States she had some chicken last night and woke up with symptoms of sharp, burning, 10/10 abdominal pain associated with nausea and vomiting. Patient st ates she has had this type of pain in the past however never lasted this long. She has not seen anybody for this pain in the past. She has had no bowel movement in a few days however is passing gas. She denies any fever, chills, dysuria. LMP: End november PMD: Dr. Pierre PMHX: neg PSOCHX: neg etoh, drug, cig ALL: NKDA GENERAL/CONSTITUTIONAL: [No fever or chills. No weakness. No weight change.] HEAD, EYES, EARS, NOSE AND THROAT: [No change in vision. No ear pain or discharge. No sore throat.] CARDIOVASCULAR: [No chest pain or shortness of breath.] RESPIRATORY: [No cough, wheezing, or hemoptysis.] GASTROINTESTINAL: [(+) nausea, vomiting, (-) diarrhea or constipation. No rectal bleeding.] GENITOURINARY: [No dysuria, frequency, or change in urination.] MUSCULOSKELETAL: [No joint or muscle swelling or pain. No neck or back pain.] SKIN AND BREASTS: [No rash or easy bruising.] NEUROLOGIC: [No headache, vertigo, loss of consciousness, or loss of sensation.] PSYCHIATRIC: [No depression or anxiety.] ENDOCRINE: [No increased thirst. No abnormal weight change.] HEMATOLOGIC/LYMPHATIC: [No anemia, easy bleeding, or history of blood clots.] ALLERGIC/IMMUNOLOGIC: [No hives or skin allergy. No latex allergy.] GENERAL: [The patient is awake, alert, and fully oriented, in moderate painful distress.] HEAD: [Normal with no signs of trauma.] EYES: [Pupils equal, round and reactive to light, extraocular movements intact, sclera anicteric, conjunctiva clear.] ENT: [Ears normal, nares patent, oropharynx clear without exudates. Moist mucous membranes.] NECK: [Normal range of motion, supple without lymphadenopathy, JVD, or masses.] LUNGS: [Breath sounds equal, clear to auscultation bilaterally. No wheezes, and no crackles.] HEART: [Regular rate and rhythm, normal S1 and S2 without murmur, rub.] ABDOMEN: [Soft, (+) tenderness upper abd (+) Tidwell's sign, normoactive bowel sounds. No guarding, no rebound. No masses.] EXTREMITIES: [Normal range of motion, no edema. No clubbing or cyanosis. No cords, erythema, or tenderness.] NEUROLOGICAL: [Cranial nerves II through XII grossly intact. Normal speech, normal gait.] PSYCH: [Normal mood, normal affect.] SKIN: [Warm, Dry, normal turgor, no rashes or lesions noted.] <Wicho Collins - Last Filed: 12/30/19 20:54> <Allyssa Soni - Last Filed: 01/04/20 08:32> - General Chief Complaint: Pain Stated Complaint: LWR ABD PAIN Past History - Medical History Asthma: No Cancer: No Cardiac Disorders: No COPD: No Diabetes: No HTN: Yes (gestational hypertension) Seizures: No Thyroid Disease: No - Immunization History Immunization Up to Date: Yes - Psycho-Social/Smoking History Smoking History: Never smoked Have you smoked in the past 12 months: No - Substance Abuse Hx (Audit-C & DAST Scrn) How often the patient has a drink containing alcohol: Never Score: In Men: 4 or > Positive; In Women: 3 or > Positive: 0 Screen Result (Pos requires Nsg. Audit-10AR): Negative <Wicho Collins - Last Filed: 12/30/19 20:54> <Allyssa Soni - Last Filed: 01/04/20 08:32> - Medical History Allergies/Adverse Reactions: Allergies Allergy/AdvReac Type Severity Reaction Status Date / Time No Known Allergies Allergy Verified 12/30/19 10:30 Home Medications: Ambulatory Orders oxyCODONE HCL [Roxicodone -] 5 mg PO Q4H PRN #20 tablet MDD 6 01/01/20 Sulfamethoxazole/Trimethoprim [Bactrim Ds Tablet] 1 each PO Q12H #6 tablet 01/03/20 *Physical Exam - Vital Signs Last Vital Signs Temp Pulse Resp BP Pulse Ox 98.3 F 101 H 18 135/93 100 12/30/19 10:27 12/30/19 10:27 12/30/19 10:27 12/30/19 10:27 12/30/19 10:27 <Wicho Collins - Last Filed: 12/30/19 20:54> - Vital Signs Last Vital Signs Temp Pulse Resp BP Pulse Ox 98.3 F 74 18 117/86 97 01/03/20 10:00 01/03/20 15:49 01/03/20 15:49 01/03/20 15:49 01/03/20 09:00 <Allyssa Soni - Last Filed: 01/04/20 08:32> ED Treatment Course - LABORATORY CBC & Chemistry Diagram: 12/30/19 11:00 12/30/19 11:00 - RADIOLOGY Radiology Studies Ordered: Category Date Time Status ABDOMEN US [US] Stat Ultrasound 12/30/19 10:49 Ordered <Wicho Collins - Last Filed: 12/30/19 20:54> - LABORATORY CBC & Chemistry Diagram: 01/03/20 05:55 01/03/20 05:55 - ADDITIONAL ORDERS Additional order review: 12/30/19 12:30 Urine Culture - Final Urine - Urine Clean Catch Proteus Mirabilis Normal Urogenital Griselda 12/30/19 11:00 RBC 4.23 MCV 89.3 MCHC 32.6 RDW 15.6 MPV 8.4 Neutrophils % 66.0 Lymphocytes % 25.5 D Monocytes % 7.4 Eosinophils % 0.7 Basophils % 0.4 - Medications Given in the ED: ED Medications Discontinued Medications Generic Name Dose Route Start Last Admin Trade Name Freq PRN Reason Stop Dose Admin Albuterol/Ipratropium 1 amp 01/01/20 22:55 01/01/20 23:20 Duoneb - NEB 01/01/20 22:56 1 amp ONCE ONE Administration Heparin Sodium (Porcine) 5,000 unit 12/30/19 22:00 01/02/20 04:13 Heparin - SQ Not Given TID NESSA Heparin Sodium (Porcine) 5,000 unit 01/01/20 22:00 01/03/20 15:03 Heparin - SQ 5,000 unit TID NESSA Administration Famotidine/Sodium Chloride 20 mg in 50 mls @ 100 mls/hr 12/30/19 10:49 12/30/19 11:12 Pepcid 20 Mg Premixed Ivpb - IVPB 12/30/19 11:18 100 mls/hr ONCE ONE Administration Sodium Chloride 1,000 mls @ 150 mls/hr 12/30/19 14:45 12/30/19 15:48 Normal Saline - IV 150 mls/hr ASDIR NESSA Administration Ampicillin Sodium/Sulbactam 100 mls @ 200 mls/hr 12/30/19 16:15 01/02/20 04:13 Sodium 1.5 gm/ Sodium Chloride IVPB Not Given Q6H-IV NESSA Sodium Chloride 1,000 mls @ 100 mls/hr 12/30/19 16:03 01/02/20 04:12 Normal Saline - IV Not Given ASDIR NESSA Sodium Chloride 1,000 mls @ 100 mls/hr 01/01/20 17:21 01/01/20 18:30 Normal Saline - IV 100 mls/hr ASDIR NESSA Administration Ampicillin Sodium/Sulbactam 100 mls @ 200 mls/hr 01/01/20 21:00 01/02/20 08:02 Sodium 1.5 gm/ Sodium Chloride IVPB 01/02/20 15:29 200 mls/hr Q6H-IV NESSA Administration Lactated Ringer's 1,000 ml in 1,000 mls @ 100 mls/hr 01/02/20 01:15 01/02/20 01:52 Lactated Ringers Solution IV 100 mls/hr ASDIR NESSA Administration Ceftriaxone Sodium 1 gm/ 50 mls @ 100 mls/hr 01/02/20 11:00 01/03/20 09:57 Dextrose IVPB 100 mls/hr DAILY NESSA Administration Protocol Ketorolac Tromethamine 30 mg 12/30/19 10:49 12/30/19 11:12 Toradol Injection - IVPUSH 12/30/19 10:50 30 mg ONCE ONE Administration Ketorolac Tromethamine 30 mg 01/02/20 10:00 01/03/20 11:56 Toradol Injection - IVPUSH 01/07/20 09:59 30 mg Q8H-IV NESSA Administration Methylprednisolone Sodium Succinate 125 mg 01/01/20 22:56 01/01/20 23:11 Solu-Medrol - IVPUSH 01/01/20 22:57 125 mg ONCE ONE Administration Morphine Sulfate 2 mg 12/30/19 13:18 12/30/19 13:43 Morphine Injection - IVPUSH 12/30/19 13:19 2 mg ONCE ONE Administration Morphine Sulfate 2 mg 12/30/19 14:38 12/30/19 15:49 Morphine Injection - IVPUSH 12/30/19 14:39 2 mg ONCE ONE Administration Morphine Sulfate 4 mg 01/01/20 17:21 01/01/20 18:56 Morphine Sulfate IVPUSH 4 mg Q4H PRN Administration PAIN LEVEL 6-10 Morphine Sulfate 2 mg 01/02/20 02:07 01/02/20 03:01 Morphine Sulfate IVPUSH 01/02/20 02:08 2 mg ONCE ONE Administration Ondansetron HCl 4 mg 12/30/19 10:51 12/30/19 11:12 Zofran Injection IVPUSH 12/30/19 10:52 4 mg ONCE ONE Administration Ondansetron HCl 4 mg 12/30/19 14:43 12/30/19 15:48 Zofran Injection IVPUSH 12/30/19 14:44 4 mg ONCE ONE Administration Ondansetron HCl 4 mg 01/01/20 17:21 01/01/20 19:04 Zofran Injection IVPUSH 4 mg Q6H PRN Administration NAUSEA Pantoprazole Sodium 40 mg 12/30/19 16:45 01/01/20 09:29 Protonix Iv IVPUSH 40 mg DAILY NESSA Administration Pantoprazole Sodium 40 mg 01/02/20 10:00 01/03/20 09:57 Protonix Iv IVPUSH 40 mg DAILY NESSA Administration Sodium Chloride 1,000 ml 12/30/19 10:49 12/30/19 11:11 Normal Saline - IV 12/30/19 10:50 1,000 ml ONCE ONE Administration Sodium Chloride 500 ml 01/01/20 22:57 01/01/20 23:01 Normal Saline - IV 01/01/20 22:58 500 ml ONCE ONE Administration <Allyssa Soni - Last Filed: 01/04/20 08:32> Medical Decision Making - Medical Decision Making 12/30/19 10:52 Patient is a 29-year-old female with no past medical history here with complaints of upper abdominal pain which started about 3 AM this morning. States she had some chicken last night and woke up with symptoms of sharp, burning, 10/10 abdominal pain associated with nausea and vomiting. Patient states she has had this type of pain in the past however never lasted this long. She has not seen anybody for this pain in the past. She has had no bowel movement in a few days however is passing gas. She denies any fever, chills, dysuria. DDX: Cholecystitis/cholelithiasis, gastritis less likely ischemic bowel, SBO Labs Pain meds, antinausea meds, IV fluids Ultrasound gallbladder Reassess Labs reviewed noted patient has elevated liver enzymes. Ultrasound shows sludge in the gallbladder, normal gallbladder wall, no pericholecystic fluid. 12/30/19 13:52 EKG: SR rate 88, normal axis, no ST-T wave changes. Patient reports pain is returning will give morphine 2 mg IV. Continue to reassess 12/30/19 15:02 Patient continues to be in pain and having nausea. Given morphine 2 mg IV and Zofran 4 mg IV. Will call patient in for admission. 12/30/19 15:22 Case discussed with manager medical will admit to 12/30/19 15:27 COVID swab ordered <Wicho Collins - Last Filed: 12/30/19 20:54> - Medical Decision Making I reviewed the case with the mid-level practitioner and agree with the mid-level practitioner's assessment, diagnosis and disposition. <Allyssa Soni - Last Filed: 01/04/20 08:32> Discharge - Discharge Information Problems reviewed: Yes - Admission Yes <Wicho Collins - Last Filed: 12/30/19 20:54> <Allyssa Soni - Last Filed: 01/04/20 08:32> - Discharge Information Clinical Impression/Diagnosis: Intractable right upper quadrant abdominal pain, Transaminitis Condition: Stable Disposition: HOME
[2019-12-30] MEDS ORDERED: KETOROLAC TROMETHAMINE 30 MG/1 ML VIAL ONE (11:01)
[2019-12-30 11:13] LABS: BASO % 0.4 % (0-2.0); EOS % 0.7 % (0-4.5); HEMATOCRIT 37.7 % (32.4-45.2); HEMOGLOBIN 12.3 GM/dL (10.7-15.3); LYMPH % 25.5 % (8-40); MCH 29.2 pg (25.7-33.7); MCHC 32.6 g/dl (32.0-36.0); MEAN CELL VOLUME 89.3 fl (80-96); MEAN PLT VOLUME 8.4 fl (7.5-11.1); MONO % 7.4 % (3.8-10.2); PLATELET COUNT 410 K/MM3 (134-434); RBC 4.23 M/mm3 (3.60-5.2); RDW 15.6 % (11.6-15.6); WHITE BLOOD COUNT 4.1 K/mm3 (4.0-10.0)
[2019-12-30 11:27] LABS: BILIRUBIN,TOTAL 0.9 mg/dL (0.2-1); BLOOD UREA NITROGEN 9.1 mg/dL (7-18); CALCIUM 9.3 mg/dL (8.5-10.1); CREATININE 0.8 mg/dL (0.55-1.3)
[2019-12-30 12:51] LABS: EPI CELLS >36 /uL (0-25.1); HYALINE CASTS 2 /uL (0-3.1); URINE APPEARANCE CLOUDY; URINE BACTERIA 2751 /uL (0-1359); URINE BILIRUBIN NEGATIVE (NEGATIVE); URINE COLOR YELLOW; URINE GLUCOSE (UA) NEGATIVE (NEGATIVE); URINE KETONE NEGATIVE (NEGATIVE); URINE LEUK ESTERASE TRACE (NEGATIVE); URINE NITRITE NEGATIVE (NEGATIVE); URINE PROTEIN NEGATIVE (NEGATIVE); URINE WBC 131 /uL (0-25.8)
[2019-12-30 12:53] LABS: URINE RBC 25.6 /uL (0-23.9)
[2019-12-30] MEDS ORDERED: morphine CARPU-JECT 2 MG/1 ML DISP.SYRIN IVPUSH ONE ×2 (13:18→14:38)
[2019-12-30] MEDS ORDERED: MORPHINE SULFATE 2 MG/ML VIAL ONE ×2 (13:37→15:39)
[2019-12-30] MEDS ORDERED: SODIUM CHLORIDE 1,000 ML IV SCH (14:45)
[2019-12-30] MEDS ORDERED: ONDANSETRON 4 MG/2 ML VIAL IVPUSH PRN (16:00)
--- NOTE | 2019-12-30 16:14 | PN ---
Progress Note (short form) - Note Progress Note: GI CONSULT DICTATED NPO /IVF'S ABX HIDA SCAN SURGERY EVALUATION
--- NOTE | 2019-12-30 16:32 | HP ---
CHIEF COMPLAINT: abdominal pain PCP: Kevin HISTORY OF PRESENT ILLNESS: 29 y/o female without ny known pmhx presents to the ed after being awakened from excruciating upper abdominal pain. She threw up once, non bloody and came to the er later this morning for further eval. Had a similar episode a couple months ago but pain resolved. States she wasnt told to follow up anyplace after that epsiode. Today pt reports having grilled chicken for dinner last evening, then getting sick in the middle of the night. Pos nausea of/f/on after her meals but today the pain was strong. Pain is uooer abdomen and more to the right side as well. Denies any fevers or chills, no other recent illnesses no cp, sob, diarrhea. Ne melena ER course was notable for: (1) ruq/epig pain (2)elevated transaminases (3) Recent Travel: Denies PAST MEDICAL HISTORY: None PAST SURGICAL HISTORY: c/s Social History: Smoking: denies Alcohol: denies Drugs: denies Allergies No Known Allergies Allergy (Verified 12/30/19 10:30) HOME MEDICATIONS: Home Medications Medication Instructions Recorded Omeprazole 20 mg PO DAILY #30 tablet. 02/25/19 REVIEW OF SYSTEMS CONSTITUTIONAL: Absent: fever, chills, diaphoresis, generalized weakness, malaise, loss of appetite, weight change HEENT: Absent: rhinorrhea, nasal congestion, throat pain, throat swelling, difficulty swallowing, mouth swelling, ear pain, eye pain, visual changes CARDIOVASCULAR: Absent: chest pain, syncope, palpitations, irregular heart rate, lightheadedness, peripheral edema RESPIRATORY: Absent: cough, shortness of breath, dyspnea with exertion, orthopnea, wheezing, stridor, hemoptysis GASTROINTESTINAL: POS RUQ AND EPIG abdominal pain, nO abdominal distension, POS nausea, vomiting, NO diarrhea, constipation, melena, hematochezia GENITOURINARY: Absent: dysuria, frequency, urgency, hesitancy, hematuria, flank pain, genital pain MUSCULOSKELETAL: Absent: myalgia, arthralgia, joint swelling, back pain, neck pain SKIN: Absent: rash, itching, pallor HEMATOLOGIC/IMMUNOLOGIC: Absent: easy bleeding, easy bruising, lymphadenopathy, frequent infections ENDOCRINE: Absent: unexplained weight gain, unexplained weight loss, heat intolerance, cold intolerance NEUROLOGIC: Absent: headache, focal weakness or paresthesias, dizziness, unsteady gait, seizure, mental status changes, bladder or bowel incontinence PSYCHIATRIC: Absent: anxiety, depression, suicidal or homicidal ideation, hallucinations. PHYSICAL EXAMINATION Vital Signs - 24 hr 12/30/19 12/30/19 10:27 13:44 Temperature 98.3 F Pulse Rate 101 H Pulse Rate [ 86 Radial] Respiratory 18 18 Rate Blood Pressure 135/93 Blood Pressure 137/74 [Right Arm] O2 Sat by Pulse 100 99 Oximetry (%) GENERAL: Awake, alert, and fully oriented, in no acute distress. HEAD: Normal with no signs of trauma. EYES: extraocular movements intact, sclera anicteric, conjunctiva clear. No lid lag. EARS, NOSE, THROAT: Ears normal, nares patent, oropharynx clear without exudates. Moist mucous membranes. NECK: Normal range of motion, supple LUNGS: Breath sounds equal, clear to auscultation bilaterally. No wheezes, and no crackles. No accessory muscle use. HEART: Regular rate and rhythm, normal S1 and S2 without murmur, rub or gallop. ABDOMEN: Soft, pos huizar's sign, pos epig tenderness to palpation not distended, normoactive bowel sounds, no guarding, no rebound, no masses. No hepatomegaly or splenomegaly. obese MUSCULOSKELETAL: Normal range of motion at all joints. No bony deformities or tenderness. No CVA tenderness. UPPER EXTREMITIES: 2+ pulses, warm, well-perfused. No cyanosis. No clubbing. No peripheral edema. LOWER EXTREMITIES: 2+ pulses, warm, well-perfused. No calf tenderness. No peripheral edema. NEUROLOGICAL: Cranial nerves II-XII intact. Normal speech. Normal gait. PSYCHIATRIC: Cooperative. Good eye contact. Appropriate mood and affect. SKIN: Warm, dry, normal turgor, no rashes or lesions noted, normal capillary refill. Laboratory Results - last 24 hr 12/30/19 12/30/19 12/30/19 11:00 11:00 11:00 WBC 4.1 RBC 4.23 Hgb 12.3 Hct 37.7 MCV 89.3 MCH 29.2 MCHC 32.6 RDW 15.6 Plt Count 410 MPV 8.4 Absolute Neuts (auto) 2.7 Neutrophils % 66.0 Lymphocytes % 25.5 D Monocytes % 7.4 Eosinophils % 0.7 Basophils % 0.4 Nucleated RBC % 0 Sodium 138 Potassium 4.0 Chloride 102 Carbon Dioxide 25 Anion Gap 12 BUN 9.1 Creatinine 0.8 Est GFR (CKD-EPI)AfAm 116.28 Est GFR (CKD-EPI)NonAf 100.33 Random Glucose 117 H Calcium 9.3 Total Bilirubin 0.9 AST 256 H ALT 189 H Alkaline Phosphatase 94 Total Protein 8.0 Albumin 4.0 Lipase 106 Serum , Qual Negative Urine Color Urine Appearance Urine pH Ur Specific [place] Urine Protein Urine Glucose (UA) Urine Ketones Urine Blood Urine Nitrite Urine Bilirubin Urine Urobilinogen Ur Leukocyte Esterase Urine WBC (Auto) Urine RBC (Auto) Urine Casts (Auto) U Epithel Cells (Auto) Urine Bacteria (Auto) 12/30/19 12:32 WBC RBC Hgb Hct MCV MCH MCHC RDW Plt Count MPV Absolute Neuts (auto) Neutrophils % Lymphocytes % Monocytes % Eosinophils % Basophils % Nucleated RBC % Sodium Potassium Chloride Carbon Dioxide Anion Gap BUN Creatinine Est GFR (CKD-EPI)AfAm Est GFR (CKD-EPI)NonAf Random Glucose Calcium Total Bilirubin AST ALT Alkaline Phosphatase Total Protein Albumin Lipase Serum , Qual Urine Color Yellow Urine Appearance Cloudy Urine pH 8.0 Ur Specific [place] 1.019 Urine Protein Negative Urine Glucose (UA) Negative Urine Ketones Negative Urine Blood Negative Urine Nitrite Negative Urine Bilirubin Negative Urine Urobilinogen 2.0 H Ur Leukocyte Esterase Trace Urine WBC (Auto) 131 Urine RBC (Auto) 25.6 Urine Casts (Auto) 2 U Epithel Cells (Auto) >36 Urine Bacteria (Auto) 2751 EKG: NSR@88bpm abd sono: pos sludge, no pericholecystic fluid ASSESSMENT/PLAN: 29 y/o female admitted with abd pain *abd pain - ruq/epig, biliary colic/cholecystitis pos gb sludge keep npo, ivf, analgesics gi and surgery evals unasyn to cool down antiemetics *elevated transaminases - denies any alcohol use hydrate trend lfts t bili normal *dvt prophy - sq heparin Family Medical History Family History: Denies Problem List - Problem (1) Abdominal pain Code(s): R10.9 - UNSPECIFIED ABDOMINAL PAIN (2) Transaminitis Code(s): R74.0 - NONSPEC ELEV OF LEVELS OF TRANSAMNS & LACTIC ACID DEHYDRGNSE Visit type - Emergency Visit Emergency Visit: Yes Care time: The patient presented to the Emergency Department on the above date and was hospitalized for further evaluation of their emergent condition. - New Patient This patient is new to me today: Yes Date on this admission: 12/30/19 - Critical Care Critical Care patient: No
[2019-12-30] MEDS ORDERED: morphine SULFATE 4 MG/ML VIAL IVPUSH PRN (16:33)
[2019-12-30] MEDS: SODIUM CHLORIDE 1,000 ML IV SCH (17:06)
[2019-12-30] MEDS: AMPICILLIN NA/SULBACTAM NA 1.5 GM in SODIUM CHLORIDE 100 ML IVPB SCH ×2 (17:06→21:51)
[2019-12-30] MEDS: PANTOPRAZOLE SODIUM 40 MG VIAL IVPUSH SCH (17:07)
[2019-12-30] MEDS ORDERED: PANTOPRAZOLE SODIUM 40 MG VIAL ONE (17:09)
[2019-12-30] MEDS ORDERED: HEPARIN NA (PORCINE) 5,000 UNITS/ML 1ML VIAL ONE (23:34)
[2019-12-30] MEDS: HEPARIN NA (PORCINE) 5,000 UNITS/ML 1ML VIAL SQ SCH (23:39)
[2019-12-31] MEDS: AMPICILLIN NA/SULBACTAM NA 1.5 GM in SODIUM CHLORIDE 100 ML IVPB SCH ×4 (04:43→21:48)
[2019-12-31] MEDS ORDERED: HEPARIN NA (PORCINE) 5,000 UNITS/ML 1ML VIAL ONE ×2 (07:38→16:07)
[2019-12-31] MEDS: HEPARIN NA (PORCINE) 5,000 UNITS/ML 1ML VIAL SQ SCH ×3 (07:45→21:50)
[2019-12-31 09:08] LABS: HEMATOCRIT 34.8 % (32.4-45.2); HEMOGLOBIN 11.3 GM/dL (10.7-15.3); MCH 28.9 pg (25.7-33.7); MCHC 32.5 g/dl (32.0-36.0); MEAN CELL VOLUME 88.9 fl (80-96); MEAN PLT VOLUME 8.3 fl (7.5-11.1); PLATELET COUNT 346 K/MM3 (134-434); RBC 3.92 M/mm3 (3.60-5.2); RDW 15.8 % (11.6-15.6); WHITE BLOOD COUNT 3.3 K/mm3 (4.0-10.0)
[2019-12-31 09:43] LABS: POTASSIUM 3.9 mmol/L (3.5-5.1)
--- NOTE | 2019-12-31 10:03 | CONS ---
DATE OF CONSULTATION: DATE OF DICTATION: 12/30/2019 HISTORY OF PRESENT ILLNESS: The patient is a 29-year-old female with no past medical history who presents to the emergency room after waking in the middle of the night with complaints of excruciating right upper quadrant pain and upper abdominal pain. Apparently, she threw up once at night and is still having abdominal pain at this time. She states she had a similar episode some months ago which resolved on its own. She had eaten grilled chicken last night for dinner. She denies any other culprit foods and other people ate this chicken - it was not undercooked. She has never had any endoscopic evaluation in the past. She denies fevers, chills, hematemesis, melena, hematochezia, constipation, or diarrhea. PAST MEDICAL/SURGICAL HISTORY: As listed in the HPI. ALLERGIES: No known drug allergies. SOCIAL HISTORY: She does not drink, smoke, or use drugs. FAMILY HISTORY: No history of GI or gynecological malignancy. PHYSICAL EXAMINATION: Vital Signs: Temperature 98, pulse 77, blood pressure 128/78, respiratory rate 18, oxygen saturation 98% on room air. General: No acute distress. HEENT: Anicteric sclera. Cardiovascular: S1 and S2. Regular, rate, and rhythm. Lungs: Bilaterally clear to auscultation. Abdomen: Tender in the right upper quadrant and epigastrium. There is no rebound or guarding. Extremities: Without edema. LABORATORY DATA: White blood cell count 4, hemoglobin 12, hematocrit 37, MCV 89, platelet count 410. Sodium 138, potassium 4, BUN 9, creatinine 0.8. Total bilirubin 0.9, AST 256, ALT 189. Alkaline phosphatase 94, lipase 106. Urine is negative. COVID testing is pending. Urine culture also pending results. She had an ultrasound of the abdomen which revealed hepatomegaly, fatty infiltration, also with an adequately distended gallbladder with sludge and multiple tiny stones laying. There was no evidence of thickening or pericholecystic fluid. IMPRESSION: Right upper quadrant abdominal pain with findings of microlithiasis and abnormal liver tests. Findings are suspicious for biliary etiology. RECOMMENDATION: HIDA scan which was ordered. Continue antibiotics, n.p.o., IV fluids, pain management, surgery consultation, trend LFTs daily while hospitalized. 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 DO CASEY CAREY/[id number] DREW
[2019-12-31 10:05] LABS: ALBUMIN 3.6 g/dl (3.4-5.0); BILIRUBIN,TOTAL 0.8 mg/dL (0.2-1); CALCIUM 8.2 mg/dL (8.5-10.1); CREATININE 0.7 mg/dL (0.55-1.3); MAGNESIUM 2.1 mg/dL (1.8-2.4); PHOSPHOROUS 3.4 mg/dL (2.5-4.9); TOT PROT 7.4 g/dl (6.4-8.2)
--- NOTE | 2019-12-31 10:15 | EKG ---
Test Reason : Blood Pressure : / mmHG Vent. Rate : 088 BPM Atrial Rate : 088 BPM P-R Int : 152 ms QRS Dur : 090 ms QT Int : 350 ms P-R-T Axes : 041 050 029 degrees QTc Int : 423 ms NORMAL SINUS RHYTHM NORMAL ECG WHEN COMPARED WITH ECG OF 25-FEB-2019 09:54, NO SIGNIFICANT CHANGE WAS FOUND Confirmed by Lisa Martinez ([id number]) on 12/31/2019 10:15:15 AM Referred By: Confirmed By:Lisa Martinez
[2019-12-31] MEDS ORDERED: PANTOPRAZOLE SODIUM 40 MG VIAL ONE (10:30)
[2019-12-31] MEDS: PANTOPRAZOLE SODIUM 40 MG VIAL IVPUSH SCH (12:29)
--- NOTE | 2019-12-31 13:29 | PN ---
Teaching Attending Note Name of Resident: Reji Mathews ATTENDING PHYSICIAN STATEMENT I saw and evaluated the patient. I reviewed the resident's note and discussed the case with the resident. I agree with the resident's findings and plan as documented. SUBJECTIVE: Some ongoing RUQ pain. Nausea +, no further vomiting. No fever/chills. OBJECTIVE: Afebrile, Hemodynamicaly Stable. Laboratory Results - last 24 hr 12/31/19 12/31/19 08:10 08:10 WBC 3.3 L RBC 3.92 Hgb 11.3 Hct 34.8 MCV 88.9 MCH 28.9 MCHC 32.5 RDW 15.8 H Plt Count 346 MPV 8.3 Sodium 136 Potassium 3.9 Chloride 103 Carbon Dioxide 27 Anion Gap 6 L BUN 7.0 Creatinine 0.7 Est GFR (CKD-EPI)AfAm 136.66 Est GFR (CKD-EPI)NonAf 117.91 Random Glucose 82 Calcium 8.2 L Phosphorus 3.4 Magnesium 2.1 Total Bilirubin 0.8 AST 98 H ALT 178 H Alkaline Phosphatase 88 Total Protein 7.4 Albumin 3.6 Current Medications Generic Name Dose Route Start Last Admin Trade Name Freq PRN Reason Stop Dose Admin Heparin Sodium (Porcine) 5,000 unit 12/30/19 22:00 12/31/19 07:45 Heparin - SQ 5,000 unit TID NESSA Administration Ampicillin Sodium/Sulbactam 100 mls @ 200 mls/hr 12/30/19 16:15 12/31/19 12:00 Sodium 1.5 gm/ Sodium Chloride IVPB 200 mls/hr Q6H-IV NESSA Administration Sodium Chloride 1,000 mls @ 100 mls/hr 12/30/19 16:03 12/30/19 17:06 Normal Saline - IV 100 mls/hr ASDIR NESSA Administration Morphine Sulfate 4 mg 12/30/19 16:33 Morphine Sulfate IVPUSH Q4H PRN PAIN LEVEL 6-10 Ondansetron HCl 4 mg 12/30/19 16:00 Zofran Injection IVPUSH Q6H PRN NAUSEA Pantoprazole Sodium 40 mg 12/30/19 16:45 12/31/19 12:29 Protonix Iv IVPUSH 40 mg DAILY NESSA Administration Home Medications Medication Instructions Recorded NK [No Known Home Medication] 12/30/19 ASSESSMENT AND PLAN: 29 year old female with no known PMH presents after being awoken from sleep with RUQ abdominal pain and associated nausea/vomiting x 1. No hematemesis/fever/diarrhea/melena/hematochezia. Abdominal US - Hepatomegaly, fatty liver. Sludge and multiple tiny GB stones. 1. Acute Cholecystitis vs Biliary Colic. Afebrile, mild leukopenia NPO/IV fluids GI evaluated, awaiting HIDA scan Continue Unasyn Awaiting Surgery eval. 2. Elevated Transaminases, secondary to above LFTs improving, ?passed stone TBil wnl. No CBD dilatation on imaging Hepatitis panel pending. Monitor LFTs. DVT Px - Heparin SQ GI Px - PPI
[2019-12-31] MEDS: SODIUM CHLORIDE 1,000 ML IV SCH (16:22)
--- NOTE | 2019-12-31 17:28 | PN ---
Progress Note (short form) - Note Progress Note: GI note Patient seen and examined at bedside with no new complaints. Patient states she has had several episodes like this before. She has some nausea but denies, significant abdominal pain, vomiting, fever, chill, CP or SOB. Vital Signs Period Temp Pulse Resp BP Sys/Lucas Pulse Ox Last 24 Hr 97.8 F-98.5 F 71-98 16-18 119-138/78-93 98-100 PE: A&Ox3, NAD Unlabored resp on RA ABD: obese, soft, ND with focal TTP at RLQ and epigastrum. scar well healed, no other scars or lesions. CBC, BMP 12/31/19 08:10 12/31/19 08:10 HIDA scan revealed no filling of the gallbladder after 2.5hours with questionable limited filling at 90-120mins. <Linda Chavarria - Last Filed: 12/31/19 17:33> - Note Progress Note: AGREE WITH ASSESSMENT AND PLAN OUTLINED ABOVE PLAN FOR [facility] [place] TOMORROW <Krista Marin - Last Filed: 12/31/19 17:43> Problem List - Problems (1) Cholelithiasis Assessment/Plan: 29yo with acute cholecystitis/ cholelithiasis and elevated LFTs trending down. Spoke with Surgery, Dr Herrera to take patient to OR for [facility] [place] tomorrow. -Clears for dinner, NPO for OR tomorrow with Dr Herrera -Trend daily LFTs -Pain control Code(s): K80.20 - CALCULUS OF GALLBLADDER W/O CHOLECYSTITIS W/O OBSTRUCTION (2) Transaminitis Code(s): R74.0 - NONSPEC ELEV OF LEVELS OF TRANSAMNS & LACTIC ACID DEHYDRGNSE <Linda Chavarria - Last Filed: 12/31/19 17:33>
[2019-12-31 18:56] VITALS: BMI 35.1
--- NOTE | 2019-12-31 19:08 | PN ---
Physical Exam: SUBJECTIVE: Patient seen and examined Patient was comfortable with residual RUQ pain on examination. OBJECTIVE: Vital Signs Period Temp Pulse Resp BP Sys/Lucas Pulse Ox Last 24 Hr 97.8 F-98.5 F 71-98 16-18 119-138/79-93 99-100 GENERAL: The patient is awake, alert, and fully oriented, in no acute distress. HEAD: Normal with no signs of trauma. EYES: PERRL, extraocular movements intact, sclera anicteric, conjunctiva clear. No ptosis. ENT: Ears normal, nares patent, oropharynx clear without exudates, moist mucous membranes. NECK: Trachea midline, full range of motion, supple. LUNGS: Breath sounds equal, clear to auscultation bilaterally, no wheezes, no crackles, no accessory muscle use. HEART: Regular rate and rhythm, S1, S2 without murmur, rub or gallop. ABDOMEN: Soft, nontender, nondistended, normoactive bowel sounds, no guarding, no rebound, no hepatosplenomegaly, no masses. EXTREMITIES: 2+ pulses, warm, well-perfused, no edema. NEUROLOGICAL: Cranial nerves II through XII grossly intact. Normal speech, gait not observed. PSYCH: Normal mood, normal affect. SKIN: Warm, dry, normal turgor, no rashes or lesions noted Laboratory Results - last 24 hr 12/31/19 12/31/19 08:10 08:10 WBC 3.3 L RBC 3.92 Hgb 11.3 Hct 34.8 MCV 88.9 MCH 28.9 MCHC 32.5 RDW 15.8 H Plt Count 346 MPV 8.3 Sodium 136 Potassium 3.9 Chloride 103 Carbon Dioxide 27 Anion Gap 6 L BUN 7.0 Creatinine 0.7 Est GFR (CKD-EPI)AfAm 136.66 Est GFR (CKD-EPI)NonAf 117.91 Random Glucose 82 Calcium 8.2 L Phosphorus 3.4 Magnesium 2.1 Total Bilirubin 0.8 AST 98 H ALT 178 H Alkaline Phosphatase 88 Total Protein 7.4 Albumin 3.6 Active Medications Generic Name Dose Route Start Last Admin Trade Name Freq PRN Reason Stop Dose Admin Heparin Sodium (Porcine) 5,000 unit 12/30/19 22:00 12/31/19 15:00 Heparin - SQ 5,000 unit TID NESSA Administration Ampicillin Sodium/Sulbactam 100 mls @ 200 mls/hr 12/30/19 16:15 12/31/19 16:52 Sodium 1.5 gm/ Sodium Chloride IVPB 200 mls/hr Q6H-IV NESSA Administration Sodium Chloride 1,000 mls @ 100 mls/hr 12/30/19 16:03 12/31/19 16:22 Normal Saline - IV 100 mls/hr ASDIR NESSA Administration Morphine Sulfate 4 mg 12/30/19 16:33 Morphine Sulfate IVPUSH Q4H PRN PAIN LEVEL 6-10 Ondansetron HCl 4 mg 12/30/19 16:00 Zofran Injection IVPUSH Q6H PRN NAUSEA Pantoprazole Sodium 40 mg 12/30/19 16:45 12/31/19 12:29 Protonix Iv IVPUSH 40 mg DAILY NESSA Administration ASSESSMENT/PLAN: Patient is a 29F with no significant past medical history. Patient reported one episode of Bilious non bloody vomitus and epigastric pain after waking up. Patient reported to the ED shortly after. 1. Cholelithiasis vs cholecystitis vs biliary colic - U/S showed biliary sludge, hepatomegaly, and fatty liver - patient is afebrile with a mildly elevated wbc - Patient underwent HIDA scan - GI consult - Unasyn 2. Elevated transaminase - improving LFTs - hepatitis testing - follow CMP 3. DVT - heparin 4. epigastric tenderness/n/v - PPI. Visit type - Emergency Visit Emergency Visit: Yes ED Registration Date: 12/30/19 Care time: The patient presented to the Emergency Department on the above date and was hospitalized for further evaluation of their emergent condition. - New Patient This patient is new to me today: Yes Date on this admission: 12/31/19 - Critical Care Critical Care patient: No - Discharge Referral Referred to [facility] Med P.C.: No ATTENDING PHYSICIAN STATEMENT I saw and evaluated the patient. I reviewed the resident's note and discussed the case with the resident. I agree with the resident's findings and plan as documented. SUBJECTIVE: OBJECTIVE: ASSESSMENT AND PLAN:
[2019-12-31] MEDS ORDERED: SODIUM CHLORIDE 100 ML IVPB ONE ×2 (20:32→23:48)
[2019-12-31] MEDS ORDERED: AMPICILLIN NA/SULBACTAM NA 1.5 GM VIAL ONE ×2 (20:32→23:48)
--- NOTE | 2019-12-31 22:47 | CONSULT ---
- Consultation REQUESTING PROVIDER: Saray POOLE CONSULT REQUEST: We have been asked to surgically evaluate this patient for symptomatic gallbladder disease. PCP:Juan Ramon So MD HISTORY OF PRESENT ILLNESS:ROSANGELA who is a 29-year-old female who presnted w/ complaints of right upper quadrant abdominal pain which started about 3 AM the morning of admission. States she had some chicken and woke up with sharp, burning, 10/10 abdominal pain associated with nausea and vomiting. Patient states she has had this type of pain in the past however never lasted this long; a w/u was done on a previous ED evaluation in 02/2019. 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 LMP: End of November PMHx: none PSHx: C-S Home Medications Medication Instructions Recorded NK [No Known Home Medication] 12/30/19 Allergies Allergy/AdvReac Type Severity Reaction Status Date / Time No Known Allergies Allergy Verified 12/30/19 10:30 REVIEW OF SYSTEMS: CONSTITUTIONAL: Absent: fever, chills, diaphoresis, generalized weakness, malaise, loss of appetite, weight change CARDIOVASCULAR: Absent: chest pain, syncope, palpitations, irregular heart rate, lightheadedness, peripheral edema RESPIRATORY: Absent: cough, shortness of breath, dyspnea with exertion, wheezing, stridor, hemoptysis GASTROINTESTINAL: Present: abdominal pain, abdominal distension, nausea, vomiting. Absent: diarrhea, constipation, melena, hematochezia GENITOURINARY: Absent: dysuria, frequency, urgency, hesitancy, hematuria, flank pain, genital pain MUSCULOSKELETAL: Absent: myalgia, arthralgia, joint swelling, back pain, neck pain SKIN: Absent: rash, itching, pallor HEMATOLOGIC/IMMUNOLOGIC: Absent: easy bleeding, easy bruising, lymphadenopathy NEUROLOGIC: Absent: headache, focal weakness, paresthesias, dizziness, unsteady gait, seizure, mental status changes, bladder or bowel incontinence PSYCHIATRIC: Absent: anxiety, depression, suicidal or homicidal ideation, hallucinations. PHYSICAL EXAM: GENERAL: Awake, alert, and fully oriented, in no acute distress. HEAD: Normal with no signs of trauma. EYES: PERRL, sclera anicteric, conjunctiva clear. NECK: Normal ROM, supple without lymphadenopathy, JVD, or masses. ABDOMEN: Soft, tender RUQ, not distended, normoactive bowel sounds, no rebound, no masses. No organomegaly. Healed C-S scar; no hernias. MUSCULOSKELETAL: Normal ROM at all joints. No bony deformities or tenderness. No CVA tenderness. UPPER EXTREMITIES: 2+ pulses, warm, well-perfused. No cyanosis. Cap refill <2 seconds. No peripheral edema. LOWER EXTREMITIES: 2+ pulses, warm, well-perfused. No calf tenderness. No peripheral edema. NEUROLOGICAL: Normal speech, gait not observed. PSYCH: Cooperative. Good eye contact. Appropriate mood and affect. SKIN: Warm, dry, normal turgor, no rashes or lesions noted. Vital Signs Temperature 98.1 F 12/31/19 18:54 Pulse Rate 79 12/31/19 18:54 Respiratory Rate 18 12/31/19 18:57 Blood Pressure 134/88 12/31/19 18:54 O2 Sat by Pulse Oximetry (%) 100 12/31/19 18:57 Lab Results WBC 3.3 K/mm3 (4.0-10.0) L 12/31/19 08:10 RBC 3.92 M/mm3 (3.60-5.2) 12/31/19 08:10 Hgb 11.3 GM/dL (10.7-15.3) 12/31/19 08:10 Hct 34.8 % (32.4-45.2) 12/31/19 08:10 MCV 88.9 fl (80-96) 12/31/19 08:10 MCHC 32.5 g/dl (32.0-36.0) 12/31/19 08:10 RDW 15.8 % (11.6-15.6) H 12/31/19 08:10 Plt Count 346 K/MM3 (134-434) 12/31/19 08:10 Sodium 136 mmol/L (136-145) 12/31/19 08:10 Potassium 3.9 mmol/L (3.5-5.1) 12/31/19 08:10 Chloride 103 mmol/L (98-107) 12/31/19 08:10 Carbon Dioxide 27 mmol/L (21-32) 12/31/19 08:10 Anion Gap 6 MMOL/L (8-16) L 12/31/19 08:10 BUN 7.0 mg/dL (7-18) 12/31/19 08:10 Creatinine 0.7 mg/dL (0.55-1.3) 12/31/19 08:10 Random Glucose 82 mg/dL (74-106) 12/31/19 08:10 Calcium 8.2 mg/dL (8.5-10.1) L 12/31/19 08:10 Imaging w/u reviewed. IMP: acute cholecystitis/cholelithiasis PLAN: D/w the patient lap [place] possible open as definitive tx.r/b/t/a's d/w her and she wishes to proceed; for OR 01/01/2020. Dino Herrera MD FACS
[2020-01-01] MEDS: AMPICILLIN NA/SULBACTAM NA 1.5 GM in SODIUM CHLORIDE 100 ML IVPB SCH ×3 (03:10→21:15)
[2020-01-01] MEDS: HEPARIN NA (PORCINE) 5,000 UNITS/ML 1ML VIAL SQ SCH ×2 (05:19→21:19)
--- NOTE | 2020-01-01 07:36 | PN ---
Physical Exam: SUBJECTIVE: Patient seen and examined OBJECTIVE: Vital Signs Period Temp Pulse Resp BP Sys/Lucas Pulse Ox Last 24 Hr 97.5 F-98.5 F 71-98 16-18 118-162/83-92 99-100 GENERAL: The patient is awake, alert, and fully oriented, in no acute distress. HEAD: Normal with no signs of trauma. EYES: PERRL, extraocular movements intact, sclera anicteric, conjunctiva clear. No ptosis. ENT: Ears normal, nares patent, oropharynx clear without exudates, moist mucous membranes. NECK: Trachea midline, full range of motion, supple. LUNGS: Breath sounds equal, clear to auscultation bilaterally, no wheezes, no crackles, no accessory muscle use. HEART: Regular rate and rhythm, S1, S2 without murmur, rub or gallop. ABDOMEN: Soft, nontender, nondistended, normoactive bowel sounds, no guarding, no rebound, no hepatosplenomegaly, no masses. EXTREMITIES: 2+ pulses, warm, well-perfused, no edema. NEUROLOGICAL: Cranial nerves II through XII grossly intact. Normal speech, gait not observed. PSYCH: Normal mood, normal affect. SKIN: Warm, dry, normal turgor, no rashes or lesions noted Laboratory Results - last 24 hr 12/30/19 12/31/19 12/31/19 20:45 08:10 08:10 WBC 3.3 L RBC 3.92 Hgb 11.3 Hct 34.8 MCV 88.9 MCH 28.9 MCHC 32.5 RDW 15.8 H Plt Count 346 MPV 8.3 Sodium 136 Potassium 3.9 Chloride 103 Carbon Dioxide 27 Anion Gap 6 L BUN 7.0 Creatinine 0.7 Est GFR (CKD-EPI)AfAm 136.66 Est GFR (CKD-EPI)NonAf 117.91 Random Glucose 82 Calcium 8.2 L Phosphorus 3.4 Magnesium 2.1 Total Bilirubin 0.8 AST 98 H ALT 178 H Alkaline Phosphatase 88 Total Protein 7.4 Albumin 3.6 Hep A IgM Ab Confirm Negative Hep Bs Antigen Negative Hep B Core IgM Ab Negative Hepatitis C Ab (EIA) 0.1 Active Medications Generic Name Dose Route Start Last Admin Trade Name Freq PRN Reason Stop Dose Admin Heparin Sodium (Porcine) 5,000 unit 12/30/19 22:00 01/01/20 05:19 Heparin - SQ Not Given TID NESSA Ampicillin Sodium/Sulbactam 100 mls @ 200 mls/hr 12/30/19 16:15 01/01/20 03:10 Sodium 1.5 gm/ Sodium Chloride IVPB 200 mls/hr Q6H-IV NESSA Administration Sodium Chloride 1,000 mls @ 100 mls/hr 12/30/19 16:03 12/31/19 16:22 Normal Saline - IV 100 mls/hr ASDIR NESSA Administration Morphine Sulfate 4 mg 12/30/19 16:33 Morphine Sulfate IVPUSH Q4H PRN PAIN LEVEL 6-10 Ondansetron HCl 4 mg 12/30/19 16:00 Zofran Injection IVPUSH Q6H PRN NAUSEA Pantoprazole Sodium 40 mg 12/30/19 16:45 12/31/19 12:29 Protonix Iv IVPUSH 40 mg DAILY NESSA Administration ASSESSMENT/PLAN: ATTENDING PHYSICIAN STATEMENT I saw and evaluated the patient. I reviewed the resident's note and discussed the case with the resident. I agree with the resident's findings and plan as documented. SUBJECTIVE: OBJECTIVE: ASSESSMENT AND PLAN:
[2020-01-01] MEDS ORDERED: SODIUM CHLORIDE 100 ML IVPB ONE ×2 (09:21→21:10)
[2020-01-01] MEDS ORDERED: AMPICILLIN NA/SULBACTAM NA 1.5 GM VIAL ONE ×2 (09:21→21:09)
[2020-01-01] MEDS: PANTOPRAZOLE SODIUM 40 MG VIAL IVPUSH SCH (09:29)
[2020-01-01] MEDS ORDERED: BUPIVACAINE HCL 100 ML ONE (09:54)
[2020-01-01] MEDS ORDERED: DEXAMETHASONE SOD PHOSPHATE 4 MG/1 ML VIAL ONE (09:58)
[2020-01-01] MEDS ORDERED: LIDOCAINE HCL/PF 2% SDV 5ML VIAL ONE (09:58)
[2020-01-01] MEDS ORDERED: SUCCINYLCHOLINE CHLORIDE 200 MG/10 ML SYRINGE ONE (09:59)
[2020-01-01] MEDS ORDERED: ROCURONIUM BROMIDE 50 MG/5 ML SYRINGE ONE (09:59)
[2020-01-01] MEDS ORDERED: PROPOFOL 20 ML ONE ×2 (09:59)
[2020-01-01] MEDS ORDERED: fentaNYL CITRATE 250 MCG/5 ML VIAL ONE (09:59)
[2020-01-01] MEDS ORDERED: MIDAZOLAM HCL 2 MG/2 ML SINGLE DOSE VIAL ONE (09:59)
[2020-01-01] MEDS ORDERED: ALBUTEROL SO4 HFA INHALER IH ONE (11:10)
[2020-01-01] MEDS ORDERED: BUPIVACAINE HCL/PF 0.5% (5 MG/ML) 30 ML VIAL IJ ONE ×2 (11:14)
[2020-01-01] MEDS ORDERED: DESFLURANE GAS 240 ML BOTTLE IH ONE (11:38)
[2020-01-01] MEDS ORDERED: ACETAMINOPHEN 1000 MG/100 ML VIAL (NON FORMULARY) IVPB ONE (11:45)
[2020-01-01] MEDS ORDERED: HYDROmorphone HCl 2 MG/ML VIAL ONE (11:49)
[2020-01-01] MEDS ORDERED: NEOSTIGMINE METHYLSULFATE 0.5 MG/ML - 10 ML MDV ONE (11:58)
--- NOTE | 2020-01-01 12:47 | OP ---
Operative Note - Note: Operative Date: 01/01/20 Pre-Operative Diagnosis: acute cholecystitis/cholelithiasis Operation: laparoscopic cholecystectomy Findings: acute cholecystitis and cholelithiasis Post-Operative Diagnosis: Same as Pre-op Surgeon: Dino Herrera Manager Exchange: Evie Castillo Anesthesiologist/VIRTUAL OFFICE ASSISTANT: Олег Polo Anesthesia: General Specimens Removed: gallbladder and contents Estimated Blood Loss (mls): 20 Drains & Tubes with Location: none
--- NOTE | 2020-01-01 12:51 | SURG ---
Surgery Steaming Cabinet Tender Note Steaming Cabinet Tender: Evie Castillo PA-C Date of Service: 01/01/20 Diagnosis: acute cholecystitis/cholelithiasis Procedure: laparoscopic cholecystectom I was present for the entirety of the operative procedure. For further detail, please refer to operative report. Visit type - Case Type Case Type: ED Admission - Emergency Emergency Visit: Yes ED Registration Date: 12/30/19 Care time: The patient presented to the Emergency Department on the above date and was hospitalized for further evaluation of their emergent condition. - New patient This patient is new to me today: No
[2020-01-01] MEDS ORDERED: ONDANSETRON 4 MG/2 ML VIAL IVPUSH PRN ×2 (12:57→17:21)
[2020-01-01] MEDS ORDERED: hydrALAZINE HCL 20 MG/ML VIAL IVPUSH ONE ×2 (12:59→13:00)
--- NOTE | 2020-01-01 14:03 | OP ---
DATE OF OPERATION: 01/01/2020 PREOPERATIVE DIAGNOSIS: Acute cholecystitis and cholelithiasis. POSTOPERATIVE DIAGNOSIS: Acute cholecystitis and cholelithiasis. PROCEDURE: Laparoscopic cholecystectomy. SURGEON: Dino Herrera MD PLATE FURNACE OPERATOR: SOL Knutson ANESTHESIA: General. OPERATIVE FINDINGS: Acute cholecystitis and cholelithiasis. The rest of the findings were unremarkable. DESCRIPTION OF PROCEDURE: The patient was placed on the operating room table in supine position. After the induction of general anesthesia, the patient's abdomen was prepped with ChloraPrep and draped in sterile fashion. Time-out was taken and then pneumoperitoneum established above the umbilicus using a Veress needle. Once 15 mm of intra-abdominal pressure was obtained, a 5-mm port was placed at the umbilicus. Additional lateral 5-mm ports and a subxiphoid 12-mm port were placed and laparoscopy carried out, and the previously noted findings were observed. The gallbladder was placed on cephalad and lateral traction, and dissection was begun at the neck of the gallbladder where the peritoneum was opened medially and laterally using blunt and sharp dissection and electrocautery. Dissection continued in the triangle of Calot where the cystic duct was identified coursing from the neck of the gallbladder distally to the common bile duct. It was dissected proximally and distally for length. Similarly, the artery was similarly identified and dissected. A critical view of safety was taken, and then the cystic duct divided proximally and distally using Endo Gisela after it was clipped twice proximally and distally with large hemoclips. The artery was similarly clipped and divided. Hemostasis was checked for and noted to be good and then the gallbladder was removed from the liver bed in a retrograde fashion using electrocautery. Prior to removal from the edge of the liver, hemostasis was again verified and then the gallbladder removed from the edge of the liver, placed in an EndoCatch, and brought out through the subxiphoid port. Pneumoperitoneum was reestablished, hemostasis verified again, and then the 5-mm lateral and subxiphoid ports were removed under laparoscopic vision without evidence of bleeding from the port sites. The umbilical port was removed and the pneumoperitoneum evacuated. All port sites were infiltrated with 0.5% Marcaine and the skin edges closed with 4-0 Biosyn in a subcuticular and continuous fashion. Steri-Strips and Band-Aid dressings were placed and the procedure terminated at this point and the patient aroused from general anesthesia and transferred to the post anesthesia care unit in stable condition awake and alert. ESTIMATED BLOOD LOSS: 20 mL. REPLACEMENTS: Crystalloid. DRAINS: None. SPECIMENS: Gallbladder and contents to Pathology. I, Dino Herrera, was physically present in the operating room from the time the patient was placed on the operating room table until she was transferred to the post anesthesia care unit in [employer]. MD ANTONY Jackson/[id number] MTDD
[2020-01-01] MEDS ORDERED: AMPICILLIN NA/SULBACTAM NA 1.5 GM/100 ML PRE-DOCKED IVPB ONE (16:00)
--- NOTE | 2020-01-01 16:19 | PN ---
Teaching Attending Note Name of Resident: Kassie Hernandez ATTENDING PHYSICIAN STATEMENT I saw and evaluated the patient. I reviewed the resident's note and discussed the case with the resident. I agree with the resident's findings and plan as documented. SUBJECTIVE: Pt seen and examined in the PACU. s/p laparoscopic cholecystectomy with postop tachycardia to 150s. No chest pain but with palpitations. She is a nonsmoker, no OCPs, no personal or family history of clots. No fevers, chills, cough. OBJECTIVE: Vital Signs Period Temp Pulse Resp BP Sys/Lucas Pulse Ox Last 24 Hr 97.5 F-98.5 F 73-140 12-22 118-178/80-122 18-100 Gen: tachypneic at rest Heart: tachycardic, regular Lung: scattered rhonchi Abd: soft, incisions clean Ext: no edema CBC, BMP 12/31/19 08:10 12/31/19 08:10 Active Medications Fentanyl (Sublimaze Injection -) 50 mcg IVPUSH [id number] PRN PRN Reason: PAIN-PACU ORDER X 4 DOSES ONLY Stop: 01/02/20 12:56 Heparin Sodium (Porcine) (Heparin -) 5,000 unit SQ TID [facility] Last Admin: 01/01/20 05:19 Dose: Not Given Documented by: Ampicillin Sodium/Sulbactam (Sodium 1.5 gm/ Sodium Chloride) 100 mls @ 200 mls/hr IVPB Q6H-IV [facility] Last Admin: 01/01/20 09:29 Dose: 200 mls/hr Documented by: Sodium Chloride (Normal Saline -) 1,000 mls @ 100 mls/hr IV ASDIR [facility] Last Admin: 12/31/19 16:22 Dose: 100 mls/hr Documented by: Morphine Sulfate (Morphine Sulfate) 4 mg IVPUSH Q4H PRN PRN Reason: PAIN LEVEL 6-10 Ondansetron HCl (Zofran Injection) 4 mg IVPUSH Q6H PRN PRN Reason: NAUSEA Ondansetron HCl (Zofran Injection) 4 mg IVPUSH Q6H PRN PRN Reason: NAUSEA AND/OR VOMITING Stop: 01/02/20 12:56 Pantoprazole Sodium (Protonix Iv) 40 mg IVPUSH DAILY [facility] Last Admin: 01/01/20 09:29 Dose: 40 mg Documented by: ASSESSMENT AND PLAN: Post Op Hypoxia Acute Cholecystitis/Cholelithiasis s/p Laparoscopic Cholecystectomy r/o PE r/o Negative Pressure Pulmonary Edema - CTA chest - check cardiac enzymes, EKGs, proBNP - pain control - incentive spirometry - O2 to keep SpO2 >90% - DVT prophylaxis - ICU monitoring for now
--- NOTE | 2020-01-01 16:31 | CONSULT ---
Consultation: REQUESTING PROVIDER: CONSULT REQUEST: We have been asked to medically evaluate this patient for shortness of breath postoperatively. HISTORY OF PRESENT ILLNESS: 29 yo female with no significant PMH presented to ED with RUQ pain that woke her up from sleeping. Stated that she had similar episode several months ago, but pain resolved spontaneously. For this episode, pain was exacerbated after having meals. Last meal was dinner on 12/29. Described "feeling sick" in the middle of the night. Associated symptoms included nausea, 1 episode of vomiting (non- bloody). Denies fevers, chills, c/p, shortness of breath pre-operatively. Status post laparascopy cholecystercomy, pt was tachycardic at 150 bpm and short of breath. Pt denies taking OCP, smoking, history of blood clots, and cancer. REVIEW OF SYSTEMS: CONSTITUTIONAL: Absent: fever, chills CARDIOVASCULAR: Present: palpitations Absent: chest pain RESPIRATORY: Present: shortness of breath Absent: wheezing GASTROINTESTINAL: Absent: abdominal pain, nausea, vomiting, diarrhea, constipation GENITOURINARY: Absent: dysuria, frequency, urgency MUSCULOSKELETAL: Absent: myalgia, arthralgia, joint swelling, back pain, neck pain SKIN: Absent: rash, itching, pallor ENDOCRINE: Absent: unexplained weight change, heat intolerance, cold intolerance NEUROLOGIC: Absent: headache, focal weakness PHYSICAL EXAMINATION Last Vital Signs Temp Pulse Resp BP Pulse Ox 97.8 F 133 H 21 H 138/77 100 01/01/20 12:38 01/01/20 16:45 01/01/20 16:45 01/01/20 16:45 01/01/20 16:45 GENERAL: Awake, alert, anxious. HEAD: NCAT EYES: PERRL, EOMI HEART: +S1/S2, tachycardic. ABDOMEN: surgical incision clean, dry, intact. SKIN: Warm, dry, normal turgor, no rashes or lesions noted. Laboratory Last Values WBC 3.3 K/mm3 (4.0-10.0) L 12/31/19 08:10 RBC 3.92 M/mm3 (3.60-5.2) 12/31/19 08:10 Hgb 11.3 GM/dL (10.7-15.3) 12/31/19 08:10 Hct 34.8 % (32.4-45.2) 12/31/19 08:10 MCV 88.9 fl (80-96) 12/31/19 08:10 MCH 28.9 pg (25.7-33.7) 12/31/19 08:10 MCHC 32.5 g/dl (32.0-36.0) 12/31/19 08:10 RDW 15.8 % (11.6-15.6) H 12/31/19 08:10 Plt Count 346 K/MM3 (134-434) 12/31/19 08:10 MPV 8.3 fl (7.5-11.1) 12/31/19 08:10 Absolute Neuts (auto) 2.7 K/mm3 (1.5-8.0) 12/30/19 11:00 Neutrophils % 66.0 % (42.8-82.8) 12/30/19 11:00 Lymphocytes % 25.5 % (8-40) D 12/30/19 11:00 Monocytes % 7.4 % (3.8-10.2) 12/30/19 11:00 Eosinophils % 0.7 % (0-4.5) 12/30/19 11:00 Basophils % 0.4 % (0-2.0) 12/30/19 11:00 Nucleated RBC % 0 % (0-0) 12/30/19 11:00 Sodium 136 mmol/L (136-145) 12/31/19 08:10 Potassium 3.9 mmol/L (3.5-5.1) 12/31/19 08:10 Chloride 103 mmol/L (98-107) 12/31/19 08:10 Carbon Dioxide 27 mmol/L (21-32) 12/31/19 08:10 Anion Gap 6 MMOL/L (8-16) L 12/31/19 08:10 BUN 7.0 mg/dL (7-18) 12/31/19 08:10 Creatinine 0.7 mg/dL (0.55-1.3) 12/31/19 08:10 Est GFR (CKD-EPI)AfAm 136.66 12/31/19 08:10 Est GFR (CKD-EPI)NonAf 117.91 12/31/19 08:10 Random Glucose 82 mg/dL (74-106) 12/31/19 08:10 Calcium 8.2 mg/dL (8.5-10.1) L 12/31/19 08:10 Phosphorus 3.4 mg/dL (2.5-4.9) 12/31/19 08:10 Magnesium 2.1 mg/dL (1.8-2.4) 12/31/19 08:10 Total Bilirubin 0.8 mg/dL (0.2-1) 12/31/19 08:10 AST 98 U/L (15-37) H 12/31/19 08:10 ALT 178 U/L (13-61) H 12/31/19 08:10 Alkaline Phosphatase 88 U/L (45-117) 12/31/19 08:10 Total Protein 7.4 g/dl (6.4-8.2) 12/31/19 08:10 Albumin 3.6 g/dl (3.4-5.0) 12/31/19 08:10 Lipase 106 U/L (73-393) 12/30/19 11:00 Serum , Qual Negative 12/30/19 11:00 Urine Color Yellow 12/30/19 12:32 Urine Appearance Cloudy 12/30/19 12:32 Urine pH 8.0 (5.0-8.0) 12/30/19 12:32 Ur Specific [place] 1.019 (1.010-1.035) 12/30/19 12:32 Urine Protein Negative (NEGATIVE) 12/30/19 12:32 Urine Glucose (UA) Negative (NEGATIVE) 12/30/19 12:32 Urine Ketones Negative (NEGATIVE) 12/30/19 12:32 Urine Blood Negative (NEGATIVE) 12/30/19 12:32 Urine Nitrite Negative (NEGATIVE) 12/30/19 12:32 Urine Bilirubin Negative (NEGATIVE) 12/30/19 12:32 Urine Urobilinogen 2.0 mg/dL (0.2-1.0) H 12/30/19 12:32 Ur Leukocyte Esterase Trace (NEGATIVE) 12/30/19 12:32 Urine WBC (Auto) 131 /uL (0-25.8) 12/30/19 12:32 Urine RBC (Auto) 25.6 /uL (0-23.9) 12/30/19 12:32 Urine Casts (Auto) 2 /uL (0-3.1) 12/30/19 12:32 U Epithel Cells (Auto) >36 /uL (0-25.1) 12/30/19 12:32 Urine Bacteria (Auto) 2751 /uL (0-1359) 12/30/19 12:32 Hep A IgM Ab Confirm Negative (Negative) 12/30/19 20:45 Hep Bs Antigen Negative (Negative) 12/30/19 20:45 Hep B Core IgM Ab Negative (Negative) 12/30/19 20:45 Hepatitis C Ab (EIA) 0.1 s/co ratio (0.0-0.9) 12/30/19 20:45 Active Medications Fentanyl (Sublimaze Injection -) 50 mcg IVPUSH [id number] PRN PRN Reason: PAIN-PACU ORDER X 4 DOSES ONLY Stop: 01/02/20 12:56 Heparin Sodium (Porcine) (Heparin -) 5,000 unit SQ TID [facility] Last Admin: 01/01/20 05:19 Dose: Not Given Documented by: Ampicillin Sodium/Sulbactam (Sodium 1.5 gm/ Sodium Chloride) 100 mls @ 200 mls/hr IVPB Q6H-IV [facility] Last Admin: 01/01/20 09:29 Dose: 200 mls/hr Documented by: Sodium Chloride (Normal Saline -) 1,000 mls @ 100 mls/hr IV ASDIR [facility] Last Admin: 12/31/19 16:22 Dose: 100 mls/hr Documented by: Morphine Sulfate (Morphine Sulfate) 4 mg IVPUSH Q4H PRN PRN Reason: PAIN LEVEL 6-10 Ondansetron HCl (Zofran Injection) 4 mg IVPUSH Q6H PRN PRN Reason: NAUSEA Ondansetron HCl (Zofran Injection) 4 mg IVPUSH Q6H PRN PRN Reason: NAUSEA AND/OR VOMITING Stop: 01/02/20 12:56 Pantoprazole Sodium (Protonix Iv) 40 mg IVPUSH DAILY [facility] Last Admin: 01/01/20 09:29 Dose: 40 mg Documented by: ASSESSMENT/PLAN: This is a 29 yo female with no significant PMH presents with RUQ pain found to have acute cholecystitis and cholelithiasis and underwent lap ccy (on 12/31, done by Dr. Herrera). In PACU, pt found to be hypoxic, requiring venti-mask. As per anesthesia, pt had an ETT full of mucus upon extubation. Pt complained of palpitations, concerning for PE. Pt will be monitored in ICU for hypoxia and possible treatment for PE. #Neuro -Alert and stable #Cardio Tachycardia -Possibly due to PE (see below) vs. anxiety-related vs. pain-induced -EKG shows sinus tach. -Troponin <0.02, BNP 14.3 #Pulm SOB + tachycardia, concerning for possible PE -EKG done in PACU, concerning for S1QT3 -CTA chest -encouraged incentive spirometry -Supplemental O2 to maintain SpO2 >90%. #GI Acute cholecystitis/cholelithiasis -Status post laparascopic cholecystectomy -Ampicillin/Sulbactam for perioperative prophylaxis -Pain control- Morphine 4q4 -Zofran for nausea #Ppx -DVT: SQH -GI: Protonix #FEN -NS at 100 -Monitor electrolytes and replete if low. -Clear liquid; Advance as tolerated Dispo: Will monitor in the ICU. Visit type - Emergency Visit Emergency Visit: Yes ED Registration Date: 12/30/19 Care time: The patient presented to the Emergency Department on the above date and was hospitalized for further evaluation of their emergent condition. - New Patient This patient is new to me today: Yes Date on this admission: 01/03/20 - Critical Care Critical Care patient: Yes Total Critical Care Time (in minutes): 40 Critical Care Statement: The care of this patient involved high complexity decision making to prevent further life threatening deterioration of the patient's condition and/or to evaluate & treat vital organ system(s) failure or risk of failure. ATTENDING PHYSICIAN STATEMENT I saw and evaluated the patient. I reviewed the resident's note and discussed the case with the resident. I agree with the resident's findings and plan as documented. SUBJECTIVE: OBJECTIVE: ASSESSMENT AND PLAN:
[2020-01-01 16:53] LABS: BASO % 0.1 % (0-2.0); HEMATOCRIT 38.3 % (32.4-45.2); HEMOGLOBIN 12.4 GM/dL (10.7-15.3); MCH 28.9 pg (25.7-33.7); MCHC 32.4 g/dl (32.0-36.0); MEAN CELL VOLUME 89.4 fl (80-96); MEAN PLT VOLUME 8.8 fl (7.5-11.1); MONO % 2.2 % (3.8-10.2); NEUT % 93.7 % (42.8-82.8); PLATELET COUNT 426 K/MM3 (134-434); RBC 4.28 M/mm3 (3.60-5.2); RDW 15.7 % (11.6-15.6); WHITE BLOOD COUNT 15.1 K/mm3 (4.0-10.0)
[2020-01-01 17:13] LABS: ALK PHOS 92 U/L (45-117); ANION GAP 10 MMOL/L (8-16); BILIRUBIN,DIRECT 0.2 mg/dL (0.0-0.2); BILIRUBIN,TOTAL 0.4 mg/dL (0.2-1); BLOOD UREA NITROGEN 5.4 mg/dL (7-18); CHLORIDE 102 mmol/L (98-107); CO2 22 mmol/L (21-32); CREATININE 0.7 mg/dL (0.55-1.3); GLUCOSE,RANDOM 124 mg/dL (74-106); N-TERMINAL BNP 14.3 pg/ml (5-125); POTASSIUM 4.1 mmol/L (3.5-5.1); SGOT/AST 79 U/L (15-37); SGPT/ALT 157 U/L (13-61); SODIUM 134 mmol/L (136-145); TOT PROT 8.2 g/dl (6.4-8.2)
[2020-01-01 17:16] LABS: INR 1.18 (0.83-1.09)
[2020-01-01] MEDS ORDERED: morphine SULFATE 4 MG/ML VIAL IVPUSH PRN (17:21)
[2020-01-01] MEDS ORDERED: SODIUM CHLORIDE 1,000 ML IV SCH (17:21)
--- NOTE | 2020-01-01 17:40 | HOSP ---
Subjective - Review of Symptoms Subjective: I went to see the patient this morning, however the patient was in the OR. Upon the patient entering the PACU I was informed the patient was tachycardic due to difficult intubation and possible mucous plug during the surgery. The patient was transferred from the PACU to the ICU. I did not see or examine the patient today. ICU team to take over medical care of the patient. Physical Examination Vital Signs: Vital Signs Temperature 97.8 F 01/01/20 12:38 Pulse Rate 133 H 01/01/20 16:45 Respiratory Rate 21 H 01/01/20 16:45 Blood Pressure 138/77 01/01/20 16:45 O2 Sat by Pulse Oximetry (%) 100 01/01/20 16:45 Labs: CBC, BMP 01/01/20 16:00 01/01/20 16:00
--- NOTE | 2020-01-01 18:53 | PN ---
Progress Note (short form) - Note Progress Note: I was unable to assess the patient in the morning as she was in surgery. The patient had a complication during intubation and tachycardia with a possible mucus plug during the laparoscopic cholecystectomy. Patient was then transferred to the ICU. The patient was transferred from the PACU to the ICU and will be taken care of by the ICU team.
[2020-01-01 19:43] LABS: PLATELET ESTIMATE NORMAL
[2020-01-01] MEDS ORDERED: ALBUTEROL SO4 2.5/IPRATROPIUM 0.5 INH SOL 3 ML VIAL.NEB. NEB ONE (22:55)
[2020-01-01] MEDS ORDERED: methylPREDNISolone NA SUCC 125 MG/2 ML VIAL IVPUSH ONE (22:56)
[2020-01-01] MEDS ORDERED: SODIUM CHLORIDE 0.9% 500 ML INFUS.BAG IV ONE (22:57)
[2020-01-02] MEDS ORDERED: LACTATED RINGERS SOLUTION 1,000 ML/1,000 ML INFUS.BAG IV SCH (01:15)
[2020-01-02] MEDS ORDERED: AMPICILLIN NA/SULBACTAM NA 1.5 GM VIAL ONE ×2 (02:00→07:59)
[2020-01-02] MEDS ORDERED: SODIUM CHLORIDE 100 ML IVPB ONE ×2 (02:01→07:59)
[2020-01-02] MEDS: AMPICILLIN NA/SULBACTAM NA 1.5 GM in SODIUM CHLORIDE 100 ML IVPB SCH ×3 (02:03→08:02)
[2020-01-02] MEDS ORDERED: MORPHINE SULFATE 2 MG/ML VIAL IVPUSH ONE (02:07)
[2020-01-02] MEDS ORDERED: MORPHINE SULFATE 2 MG/ML VIAL ONE (02:10)
[2020-01-02] MEDS: SODIUM CHLORIDE 1,000 ML IV SCH (04:12)
[2020-01-02] MEDS: HEPARIN NA (PORCINE) 5,000 UNITS/ML 1ML VIAL SQ SCH ×3 (04:13→15:28)
[2020-01-02 06:37] LABS: BASO % 0.3 % (0-2.0); HEMATOCRIT 37.5 % (32.4-45.2); HEMOGLOBIN 12.1 GM/dL (10.7-15.3); MCH 28.8 pg (25.7-33.7); MCHC 32.3 g/dl (32.0-36.0); MEAN CELL VOLUME 89.2 fl (80-96); MEAN PLT VOLUME 8.5 fl (7.5-11.1); MONO % 1.4 % (3.8-10.2); NEUT % 94.3 % (42.8-82.8); PLATELET COUNT 393 K/MM3 (134-434); WHITE BLOOD COUNT 13.6 K/mm3 (4.0-10.0)
[2020-01-02 07:06] LABS: ALBUMIN 3.9 g/dl (3.4-5.0); BILIRUBIN,TOTAL 0.5 mg/dL (0.2-1); BLOOD UREA NITROGEN 6.4 mg/dL (7-18); CALCIUM 9.6 mg/dL (8.5-10.1); CREATININE 0.7 mg/dL (0.55-1.3); PHOSPHOROUS 3.5 mg/dL (2.5-4.9); POTASSIUM 4.3 mmol/L (3.5-5.1)
--- NOTE | 2020-01-02 08:51 | PN ---
Progress Note (short form) - Note Progress Note: Surgery note: Pt with some complaints of abd pain. SOB with deep inspiration. No nausea or emesis with clears. Vital Signs Period Temp Pulse Resp BP Sys/Lucas Pulse Ox Last 24 Hr 97.8 F-99.8 F 77-143 12-25 120-178/68-122 95-100 GEN: A&0x3, NAD ABD: soft, non-distended, inc tenderness. Inc c/d/i CBC, BMP 01/02/20 05:55 01/02/20 05:55 Laboratory Tests 01/01/20 01/02/20 16:00 05:55 Direct Bilirubin 0.2 AST 59 H ALT 131 H Alkaline Phosphatase 84 A/P: 29 yo female s/p lap [place], POD#1. D/w Dr. Herrera and will advance diet to fulls, may advance to soft as tolerated. DVT ppx with heparins SQ/oob/SCDs while in bed ICU follow up-CTA negative for PE, she has some atlectasis and infiltrates disease at b/l bases. Incentive spirometer
[2020-01-02] MEDS: PANTOPRAZOLE SODIUM 40 MG VIAL IVPUSH SCH (09:54)
[2020-01-02] MEDS: KETOROLAC TROMETHAMINE 30 MG/1 ML VIAL IVPUSH SCH (09:54)
--- NOTE | 2020-01-02 10:42 | EKG ---
Test Reason : Blood Pressure : / mmHG Vent. Rate : 142 BPM Atrial Rate : 142 BPM P-R Int : 136 ms QRS Dur : 078 ms QT Int : 300 ms P-R-T Axes : 050 035 017 degrees QTc Int : 461 ms SINUS TACHYCARDIA OTHERWISE NORMAL ECG WHEN COMPARED WITH ECG OF 30-DEC-2019 11:11, VENT. RATE HAS INCREASED BY 54 BPM T WAVE AMPLITUDE HAS INCREASED IN ANTERIOR LEADS Confirmed by MD Raúl, Isidro ([id number]) on 01/02/2020 10:41:55 AM Referred By: Confirmed By:Isidro Olsen MD
[2020-01-02 10:58] LABS: ANISOCYTOSIS 0; MACROCYTOSIS 0; PLATELET ESTIMATE NORMAL
[2020-01-02] MEDS ORDERED: cefTRIAXone SODIUM 1 GM VIAL ONE (11:18)
[2020-01-02] MEDS ORDERED: DEXTROSE 5%-WATER - 50 ML IVPB ONE (11:18)
--- NOTE | 2020-01-02 12:18 | PN ---
Teaching Attending Note Name of Resident: Kassie Hernandez ATTENDING PHYSICIAN STATEMENT I saw and evaluated the patient. I reviewed the resident's note and discussed the case with the resident. I agree with the resident's findings and plan as documented. SUBJECTIVE: Pt seen and examined in the ICU. CTA chest without PE, showed bibasilar atelect asis. Less tachycardic today. States breathing is better. OBJECTIVE: Vital Signs Period Temp Pulse Resp BP Sys/Lucas Pulse Ox Last 24 Hr 97.8 F-99.8 F 100-143 12-25 120-178/68-122 95-100 Intake & Output 12/30/19 12/31/19 01/01/20 01/02/20 23:59 23:59 23:59 23:59 Intake Total 560 2760 300 Output Total 1020 Balance 560 1740 300 Weight 90.718 kg 95.765 kg Gen: NAD at rest Heart: tachycardic, regular Lung: decreased breath sounds at the bases Abd: soft, incisions clean Ext: no edema CBC, BMP 01/02/20 05:55 01/02/20 05:55 Active Medications Heparin Sodium (Porcine) (Heparin -) 5,000 unit SQ TID [facility] Last Admin: 01/02/20 05:48 Dose: 5,000 unit Documented by: Lactated Ringer's (Lactated Ringers Solution) 1,000 ml in 1,000 mls @ 100 mls/hr IV ASDIR [facility] Last Admin: 01/02/20 01:52 Dose: 100 mls/hr Documented by: Ceftriaxone Sodium 1 gm/ (Dextrose) 50 mls @ 100 mls/hr IVPB DAILY [facility]; Protocol Ketorolac Tromethamine (Toradol Injection -) 30 mg IVPUSH Q8H-IV [facility] Stop: 01/07/20 09:59 Last Admin: 01/02/20 09:54 Dose: 30 mg Documented by: Morphine Sulfate (Morphine Sulfate) 4 mg IVPUSH Q4H PRN PRN Reason: PAIN LEVEL 6-10 Last Admin: 01/01/20 18:56 Dose: 4 mg Documented by: Ondansetron HCl (Zofran Injection) 4 mg IVPUSH Q6H PRN PRN Reason: NAUSEA Last Admin: 01/01/20 19:04 Dose: 4 mg Documented by: Pantoprazole Sodium (Protonix Iv) 40 mg IVPUSH DAILY [facility] Last Admin: 01/02/20 09:54 Dose: 40 mg Documented by: ASSESSMENT AND PLAN: Post Op Hypoxia Acute Cholecystitis/Cholelithiasis s/p Laparoscopic Cholecystectomy Atelectasis UTI - pain control - incentive spirometry - O2 to keep SpO2 >90% - short course of antibiotics - DVT prophylaxis - can monitor on floor
[2020-01-02] MEDS: CEFTRIAXONE 1 GM in DEXTROSE 5%-WATER - 50 ML IVPB SCH (12:31)
--- NOTE | 2020-01-02 15:20 | PN ---
Physical Exam: SUBJECTIVE: Patient seen and examined. Stated that she her surgical site pain is better compared to yesterday. Using incentive spirometer. Admits to shortness of breath when she speaks for a long time. Admits to flatulence. No bowel movement since surgery. Is tolerating clear liquid diet. OBJECTIVE: Vital Signs Period Temp Pulse Resp BP Sys/Lucas Pulse Ox Last 24 Hr 97.8 F-99.8 F 109-143 17-25 120-161/68-109 96-100 GENERAL: The patient is awake, alert HEENT: NCAT, EOMI, nares patent. LUNGS: Breath sounds equal, clear to auscultation bilaterally, no wheezes HEART: Regular, tachycardic. No murmurs ABDOMEN: Soft, surgical site clean, dry and intact. Nontender to palpation. EXTREMITIES: warm, well-perfused, no edema. SKIN: Warm, dry Laboratory Last Values WBC 13.6 K/mm3 (4.0-10.0) H 01/02/20 05:55 RBC 4.20 M/mm3 (3.60-5.2) 01/02/20 05:55 Hgb 12.1 GM/dL (10.7-15.3) 01/02/20 05:55 Hct 37.5 % (32.4-45.2) 01/02/20 05:55 MCV 89.2 fl (80-96) 01/02/20 05:55 MCH 28.8 pg (25.7-33.7) 01/02/20 05:55 MCHC 32.3 g/dl (32.0-36.0) 01/02/20 05:55 RDW 16.0 % (11.6-15.6) H 01/02/20 05:55 Plt Count 393 K/MM3 (134-434) 01/02/20 05:55 MPV 8.5 fl (7.5-11.1) 01/02/20 05:55 Absolute Neuts (auto) 12.8 K/mm3 (1.5-8.0) H 01/02/20 05:55 Neutrophils % 94.3 % (42.8-82.8) H 01/02/20 05:55 Neutrophils % (Manual) 92.8 % (42.8-82.8) H 01/02/20 05:55 Band Neutrophils % 0.0 % 01/02/20 05:55 Lymphocytes % 4.0 % (8-40) L 01/02/20 05:55 Lymphocytes % (Manual) 7.2 % (8-40) L 01/02/20 05:55 Monocytes % 1.4 % (3.8-10.2) L 01/02/20 05:55 Monocytes % (Manual) 0 % (3.8-10.2) L 01/02/20 05:55 Eosinophils % 0.0 % (0-4.5) 01/02/20 05:55 Eosinophils % (Manual) 0.0 % (0-4.5) 01/02/20 05:55 Basophils % 0.3 % (0-2.0) 01/02/20 05:55 Basophils % (Manual) 0.0 % (0-2.0) 01/02/20 05:55 Myelocytes % (Man) 0 % (0-2) 01/02/20 05:55 Promyelocytes % (Man) 0 % (0-2) 01/02/20 05:55 Blast Cells % (Manual) 0 % (0-0) 01/02/20 05:55 Nucleated RBC % 0 % (0-0) 01/02/20 05:55 Metamyelocytes 0 % (0-2) 01/02/20 05:55 Hypochromia 0 01/02/20 05:55 Platelet Estimate Normal 01/02/20 05:55 Polychromasia 0 01/02/20 05:55 Poikilocytosis 0 01/02/20 05:55 Anisocytosis 0 01/02/20 05:55 Microcytosis 0 01/02/20 05:55 Macrocytosis 0 01/02/20 05:55 PT with INR 14.00 SEC (9.7-13.0) H 01/01/20 16:00 INR 1.18 (0.83-1.09) H 01/01/20 16:00 Sodium 136 mmol/L (136-145) 01/02/20 05:55 Potassium 4.3 mmol/L (3.5-5.1) 01/02/20 05:55 Chloride 103 mmol/L (98-107) 01/02/20 05:55 Carbon Dioxide 22 mmol/L (21-32) 01/02/20 05:55 Anion Gap 11 MMOL/L (8-16) 01/02/20 05:55 BUN 6.4 mg/dL (7-18) L 01/02/20 05:55 Creatinine 0.7 mg/dL (0.55-1.3) 01/02/20 05:55 Est GFR (CKD-EPI)AfAm 136.66 01/02/20 05:55 Est GFR (CKD-EPI)NonAf 117.91 01/02/20 05:55 Random Glucose 116 mg/dL (74-106) H 01/02/20 05:55 Calcium 9.6 mg/dL (8.5-10.1) 01/02/20 05:55 Phosphorus 3.5 mg/dL (2.5-4.9) 01/02/20 05:55 Magnesium 2.0 mg/dL (1.8-2.4) 01/02/20 05:55 Total Bilirubin 0.5 mg/dL (0.2-1) 01/02/20 05:55 Direct Bilirubin 0.2 mg/dL (0.0-0.2) 01/01/20 16:00 AST 59 U/L (15-37) H 01/02/20 05:55 ALT 131 U/L (13-61) H 01/02/20 05:55 Alkaline Phosphatase 84 U/L (45-117) 01/02/20 05:55 Troponin I < 0.02 ng/ml (0.00-0.05) 01/01/20 16:00 B-Natriuretic Peptide 14.3 pg/ml (5-125) 01/01/20 16:00 Total Protein 8.0 g/dl (6.4-8.2) 01/02/20 05:55 Albumin 3.9 g/dl (3.4-5.0) 01/02/20 05:55 Lipase 106 U/L (73-393) 12/30/19 11:00 Serum , Qual Negative 12/30/19 11:00 Urine Color Yellow 12/30/19 12:32 Urine Appearance Cloudy 12/30/19 12:32 Urine pH 8.0 (5.0-8.0) 12/30/19 12:32 Ur Specific [place] 1.019 (1.010-1.035) 12/30/19 12:32 Urine Protein Negative (NEGATIVE) 12/30/19 12:32 Urine Glucose (UA) Negative (NEGATIVE) 12/30/19 12:32 Urine Ketones Negative (NEGATIVE) 12/30/19 12:32 Urine Blood Negative (NEGATIVE) 12/30/19 12:32 Urine Nitrite Negative (NEGATIVE) 12/30/19 12:32 Urine Bilirubin Negative (NEGATIVE) 12/30/19 12:32 Urine Urobilinogen 2.0 mg/dL (0.2-1.0) H 12/30/19 12:32 Ur Leukocyte Esterase Trace (NEGATIVE) 12/30/19 12:32 Urine WBC (Auto) 131 /uL (0-25.8) 12/30/19 12:32 Urine RBC (Auto) 25.6 /uL (0-23.9) 12/30/19 12:32 Urine Casts (Auto) 2 /uL (0-3.1) 12/30/19 12:32 U Epithel Cells (Auto) >36 /uL (0-25.1) 12/30/19 12:32 Urine Bacteria (Auto) 2751 /uL (0-1359) 12/30/19 12:32 Smooth [employer] Intrp 14 Units (0-19) 12/31/19 08:10 Hep A IgM Ab Confirm Negative (Negative) 12/30/19 20:45 Hep Bs Antigen Negative (Negative) 12/30/19 20:45 Hep B Core IgM Ab Negative (Negative) 12/30/19 20:45 Hepatitis C Ab (EIA) 0.1 s/co ratio (0.0-0.9) 12/30/19 20:45 Blood Type O POSITIVE 01/01/20 16:00 Antibody Screen Negative 01/01/20 16:00 Active Medications Heparin Sodium (Porcine) (Heparin -) 5,000 unit SQ TID [facility] Last Admin: 01/02/20 15:28 Dose: 5,000 unit Documented by: Lactated Ringer's (Lactated Ringers Solution) 1,000 ml in 1,000 mls @ 100 mls/hr IV ASDIR [facility] Last Admin: 01/02/20 01:52 Dose: 100 mls/hr Documented by: Ceftriaxone Sodium 1 gm/ (Dextrose) 50 mls @ 100 mls/hr IVPB DAILY [facility]; Protocol Last Admin: 01/02/20 12:31 Dose: 100 mls/hr Documented by: Ketorolac Tromethamine (Toradol Injection -) 30 mg IVPUSH Q8H-IV [facility] Stop: 01/07/20 09:59 Last Admin: 01/02/20 09:54 Dose: 30 mg Documented by: Morphine Sulfate (Morphine Sulfate) 4 mg IVPUSH Q4H PRN PRN Reason: PAIN LEVEL 6-10 Last Admin: 01/01/20 18:56 Dose: 4 mg Documented by: Ondansetron HCl (Zofran Injection) 4 mg IVPUSH Q6H PRN PRN Reason: NAUSEA Last Admin: 01/01/20 19:04 Dose: 4 mg Documented by: Pantoprazole Sodium (Protonix Iv) 40 mg IVPUSH DAILY [facility] Last Admin: 01/02/20 09:54 Dose: 40 mg Documented by: ASSESSMENT/PLAN: This is a 29 yo female with no significant PMH presents with RUQ pain found to have acute cholecystitis and cholelithiasis and underwent laprascopic cholecystectomy (on 12/31, done by Dr. Herrera). In PACU, pt found to be hypoxic, requiring venti-mask. As per anesthesia, pt had an ETT full of mucus upon extubation. Pt complained of palpitations and shortness of breath. Subsequent EKG showed S1Q3T3. Her symptoms and EKG were concerning for PE. Pt was monitored in ICU for hypoxia and possible treatment for PE. CTA was negative for PE, but was positive for atelectactic changes and infiltrates in the lower lobes b/l. Troponin was <0.02, BNP 14.3. Pt had some improved sinus tachycardic and hypertension in the ICU. Consider IV Lopressor 5 PRN q4 for sustained HR >120. Pt was encouraged and instructed on how to use the incentive spirometer and was maintained on nasal cannula with good oxygen saturation. Pt was put on ampicillin/Sulbactam for perioperative prophylaxis. However, urine culture showed growth of proteus mirabilis and was placed on ceftriaxone instead. Pt was able to tolerate a liquid diet and admits to improving shortness of breath and tachycardia. Pt's history (denies OCP, cancers, recent surgery, family history of clots) and imaging (b/l atelectasis, negative CTA for PE) suggest pain- induced or anxiety-induced tachycardia hypertension in a post-operative setting. Dispo: Transfer to Med Surg for further management. Visit type - Emergency Visit Emergency Visit: Yes ED Registration Date: 12/30/19 Care time: The patient presented to the Emergency Department on the above date and was hospitalized for further evaluation of their emergent condition. - New Patient This patient is new to me today: No - Critical Care Critical Care patient: Yes Total Critical Care Time (in minutes): 36 Critical Care Statement: The care of this patient involved high complexity decision making to prevent further life threatening deterioration of the patient's condition and/or to evaluate & treat vital organ system(s) failure or risk of failure. ATTENDING PHYSICIAN STATEMENT I saw and evaluated the patient. I reviewed the resident's note and discussed the case with the resident. I agree with the resident's findings and plan as documented. SUBJECTIVE: OBJECTIVE: ASSESSMENT AND PLAN:
--- NOTE | 2020-01-02 20:24 | PN.GI ---
GI Progress Note Subjective: FEELING BETTER TODAY - STILL WITH SOME DYSPNEA - - Objective Vital Signs: Vital Signs Temperature 98.4 F 01/02/20 16:00 Pulse Rate 72 01/02/20 20:00 Respiratory Rate 16 01/02/20 20:00 Blood Pressure 138/53 L 01/02/20 20:00 O2 Sat by Pulse Oximetry (%) 97 01/02/20 20:00 Constitutional: Well Nourished, No Distress Eyes: Yes: WNL Cardiovascular: Yes: WNL Respiratory: Yes: WNL, Regular, CTA Bilaterally Gastrointestinal Inspection: Yes: WNL ...Auscultate: Yes: Other (POST -SURGICAL TENDERNESS NML BS) Extremities: Yes: WNL Labs: CBC, BMP 01/02/20 05:55 01/02/20 05:55 INR, PTT INR 1.18 (0.83-1.09) H 01/01/20 16:00 Problem List - Problems (1) Cholecystitis Assessment/Plan: S/P LAP GUERO COURSE COMPLICATED BY HYPOXIA ( CTA NEGATIVE FOR PE) DIET PER SURGERY MICU CARE WILL SIGN OFF PLEASE RE- CONSULT WITH QUESTIONS OR CONCERNS Code(s): K81.9 - CHOLECYSTITIS, UNSPECIFIED (2) Hypoxia Code(s): R09.02 - HYPOXEMIA (3) Abdominal pain Code(s): R10.9 - UNSPECIFIED ABDOMINAL PAIN
[2020-01-03] MEDS: KETOROLAC TROMETHAMINE 30 MG/1 ML VIAL IVPUSH SCH ×3 (01:55→11:56)
[2020-01-03] MEDS: HEPARIN NA (PORCINE) 5,000 UNITS/ML 1ML VIAL SQ SCH ×3 (01:56→15:03)
[2020-01-03 06:29] LABS: BASO % 0.3 % (0-2.0); EOS % 0.1 % (0-4.5); HEMOGLOBIN 11.1 GM/dL (10.7-15.3); LYMPH % 22.1 % (8-40); MCHC 32.5 g/dl (32.0-36.0); MEAN CELL VOLUME 89.2 fl (80-96); MEAN PLT VOLUME 8.2 fl (7.5-11.1); MONO % 5.2 % (3.8-10.2); NEUT % 72.3 % (42.8-82.8); PLATELET COUNT 329 K/MM3 (134-434); RBC 3.81 M/mm3 (3.60-5.2); RDW 15.9 % (11.6-15.6); WHITE BLOOD COUNT 8.8 K/mm3 (4.0-10.0)
[2020-01-03 06:55] LABS: ALBUMIN 3.4 g/dl (3.4-5.0); BILIRUBIN,TOTAL 0.4 mg/dL (0.2-1); BLOOD UREA NITROGEN 13.8 mg/dL (7-18); CALCIUM 8.8 mg/dL (8.5-10.1); CREATININE 0.7 mg/dL (0.55-1.3); MAGNESIUM 2.2 mg/dL (1.8-2.4); PHOSPHOROUS 3.7 mg/dL (2.5-4.9); TOT PROT 6.9 g/dl (6.4-8.2)
[2020-01-03] MEDS ORDERED: cefTRIAXone SODIUM 1 GM VIAL ONE (08:22)
[2020-01-03] MEDS ORDERED: DEXTROSE 5%-WATER - 50 ML IVPB ONE (08:22)
[2020-01-03] MEDS: CEFTRIAXONE 1 GM in DEXTROSE 5%-WATER - 50 ML IVPB SCH (09:57)
[2020-01-03] MEDS: PANTOPRAZOLE SODIUM 40 MG VIAL IVPUSH SCH (09:57)
--- NOTE | 2020-01-03 11:20 | PN ---
Teaching Attending Note Name of Resident: Kassie Hernandez ATTENDING PHYSICIAN STATEMENT I saw and evaluated the patient. I reviewed the resident's note and discussed the case with the resident. I agree with the resident's findings and plan as documented. SUBJECTIVE: Pt seen and examined in the ICU. Denies shortness of breath or chest pain. Tole rating PO. OBJECTIVE: Vital Signs Period Temp Pulse Resp BP Sys/Lucas Pulse Ox Last 24 Hr 97.8 F-98.4 F 72-112 14-25 123-148/53-96 97-97 Intake & Output 12/31/19 01/01/20 01/02/20 01/03/20 23:59 23:59 23:59 23:59 Intake Total 560 2760 1480 Output Total 1020 Balance 560 1740 1480 Weight 95.765 kg Gen: NAD at rest Heart: tachycardic, regular Lung: decreased breath sounds at the bases Abd: soft, incisions clean Ext: no edema CBC, BMP 01/03/20 05:55 01/03/20 05:55 Active Medications Heparin Sodium (Porcine) (Heparin -) 5,000 unit SQ TID [facility] Last Admin: 01/03/20 05:50 Dose: 5,000 unit Documented by: Ceftriaxone Sodium 1 gm/ (Dextrose) 50 mls @ 100 mls/hr IVPB DAILY [facility]; Protocol Last Admin: 01/03/20 09:57 Dose: 100 mls/hr Documented by: Ketorolac Tromethamine (Toradol Injection -) 30 mg IVPUSH Q8H-IV [facility] Stop: 01/07/20 09:59 Last Admin: 01/03/20 09:56 Dose: 30 mg Documented by: Morphine Sulfate (Morphine Sulfate) 4 mg IVPUSH Q4H PRN PRN Reason: PAIN LEVEL 6-10 Last Admin: 01/01/20 18:56 Dose: 4 mg Documented by: Ondansetron HCl (Zofran Injection) 4 mg IVPUSH Q6H PRN PRN Reason: NAUSEA Last Admin: 01/01/20 19:04 Dose: 4 mg Documented by: Pantoprazole Sodium (Protonix Iv) 40 mg IVPUSH DAILY NESSA Last Admin: 01/03/20 09:57 Dose: 40 mg Documented by: ASSESSMENT AND PLAN: Post Op Hypoxia Tachycardia resolved Acute Cholecystitis/Cholelithiasis s/p Laparoscopic Cholecystectomy Atelectasis UTI - pain control - incentive spirometry - O2 to keep SpO2 >90% - short course of antibiotics - DVT prophylaxis - can monitor on floor
--- NOTE | 2020-01-03 12:17 | PATH ---
Surgical Pathology Report Patient Name: CLARITZA FRITZ [facility]. Rec. 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 ONE BENIGN REACTIVE LYMPH NODE. Electronically Signed Jamshid Mckeon M.D. Gross Description Received in formalin, labeled "gallbladder," is a 7.5 x 2.7 x 2.4 cm. gallbladder with a 0.2 cm. in length portion of cystic duct attached. There is a 0.7 cm in greatest dimension caro periductal lymph node present. The outer surface is caro price and varies from smooth to shaggy. The lumen contains green, tenacious bile as well as abundant yellow, irregular to fragmented choleliths ranging from 0.1-0.5 cm in greatest dimension. The mucosa is green and velvety with gold cholesterol stippling. The wall of the gallbladder averages 0.1 cm. in thickness. Banana Handler sections are submitted in one cassette. 01/02/2020 [facility]01/02/2020
[2020-01-03 13:05] VITALS: TEMP 98.3
--- NOTE | 2020-01-03 13:06 | PN ---
Physical Exam: SUBJECTIVE: Patient seen and examined. Pt reports tolerating soft diet. Denies: abdominal pain. No overnight events. OBJECTIVE: Vital Signs Temperature 97.8 F 01/03/20 04:00 Pulse Rate 78 01/03/20 08:00 Respiratory Rate 16 01/03/20 08:00 Blood Pressure 123/85 01/03/20 08:00 O2 Sat by Pulse Oximetry (%) 97 01/03/20 09:00 GENERAL: The patient is awake, alert, and fully oriented, in no acute distress. HEAD: Normal with no signs of trauma. EYES: PERRL, extraocular movements intact, sclera anicteric, conjunctiva clear. No ptosis. ENT: Ears normal, nares patent, oropharynx clear without exudates, moist mucous membranes. NECK: Trachea midline, full range of motion, supple. LUNGS: Breath sounds equal, clear to auscultation bilaterally, no wheezes, no crackles, no accessory muscle use. HEART: Regular rate and rhythm, S1, S2 without murmur, rub or gallop. ABDOMEN: Soft, mild TTP to incision sites as expected postop, nondistended, incisions c/d/i with bandaids in place, with steris EXTREMITIES: 2+ pulses, warm, well-perfused, no edema. NEUROLOGICAL: Cranial nerves II through XII grossly intact. Normal speech, gait not observed. PSYCH: Normal mood, normal affect. SKIN: Warm, dry, normal turgor, no rashes or lesions noted Laboratory Results - last 24 hr 12/30/19 01/03/20 01/03/20 17:18 05:55 05:55 WBC 8.8 RBC 3.81 Hgb 11.1 Hct 34.0 MCV 89.2 MCH 29.0 MCHC 32.5 RDW 15.9 H Plt Count 329 MPV 8.2 Absolute Neuts (auto) 6.3 Neutrophils % 72.3 D Lymphocytes % 22.1 D Monocytes % 5.2 D Eosinophils % 0.1 D Basophils % 0.3 Nucleated RBC % 0 Sodium 138 Potassium 4.0 Chloride 104 Carbon Dioxide 27 Anion Gap 7 L BUN 13.8 Creatinine 0.7 Est GFR (CKD-EPI)AfAm 136.66 Est GFR (CKD-EPI)NonAf 117.91 Random Glucose 91 Calcium 8.8 Phosphorus 3.7 Magnesium 2.2 Total Bilirubin 0.4 AST 34 ALT 94 H Alkaline Phosphatase 69 Total Protein 6.9 Albumin 3.4 COVID-19 (MEET) Not detected Active Medications Generic Name Dose Route Start Last Admin Trade Name Duran PRN Reason Stop Dose Admin Heparin Sodium (Porcine) 5,000 unit 01/01/20 22:00 01/03/20 05:50 Heparin - SQ 5,000 unit TID NESSA Administration Ceftriaxone Sodium 1 gm/ 50 mls @ 100 mls/hr 01/02/20 11:00 01/03/20 09:57 Dextrose IVPB 100 mls/hr DAILY NESSA Administration Protocol Ketorolac Tromethamine 30 mg 01/02/20 10:00 01/03/20 11:56 Toradol Injection - IVPUSH 01/07/20 09:59 30 mg Q8H-IV NESSA Administration Morphine Sulfate 4 mg 01/01/20 17:21 01/01/20 18:56 Morphine Sulfate IVPUSH 4 mg Q4H PRN Administration PAIN LEVEL 6-10 Ondansetron HCl 4 mg 01/01/20 17:21 01/01/20 19:04 Zofran Injection IVPUSH 4 mg Q6H PRN Administration NAUSEA Pantoprazole Sodium 40 mg 01/02/20 10:00 01/03/20 09:57 Protonix Iv IVPUSH 40 mg DAILY NESSA Administration Pathology: Surgical pathology: Gallbladder, cholecystectomy: chronic cholecystitis, cholelithasis, and cholesterolosis. One benign reactive lymph node ASSESSMENT/PLAN: 29F with no PMH s/p laparoscopic cholecystectomy from 12/[address] Herrera with the following intraop findings: acute cholecystitis and cholelithasis. c/b SOB and tachycardia. CTA neg for PE. Tachycardia now resolving. Diet: tolerating soft diet labs reviewed: no leukocytosis, LFT WNL Vitals: normotensive, afebrile Surgical pathology: Gallbladder, cholecystectomy: chronic cholecystitis, cholelithasis, and cholesterolosis. One benign reactive lymph node appreciate ICU care pain control PRN DVT ppx: SQH/IS/OOB General surgery will sign-off. Please follow-up with Dr. Herrera in 1-2 week
--- NOTE | 2020-01-03 15:35 | DS ---
"Physical Exam: SUBJECTIVE: Patient seen and examined. Stated that she her surgical site pain is better. Using incentive spirometer. Admits to having bowel movement and is tolerating diet. OBJECTIVE: Vital Signs Period Temp Pulse Resp BP Sys/Lucas Pulse Ox Last 24 Hr 97.8 F-98.4 F 72-98 14-20 118-138/53-96 97-97 PHYSICAL EXAM GENERAL: The patient is awake, alert and in no acute distress. HEENT: NCAT, EOMI. LUNGS: Breath sounds equal, clear to auscultation bilaterally, no wheezes HEART: Regular rate and rhythm, S1, S2 without murmur ABDOMEN: Soft, nondistended. Bowel sounds present in all 4 quadrants. Surgical sites clean, dry, intact. EXTREMITIES: warm, well-perfused, no edema. SKIN: Warm, dry, surgical site clean, dry and intact. Laboratory Last Values WBC 8.8 K/mm3 (4.0-10.0) 01/03/20 05:55 RBC 3.81 M/mm3 (3.60-5.2) 01/03/20 05:55 Hgb 11.1 GM/dL (10.7-15.3) 01/03/20 05:55 Hct 34.0 % (32.4-45.2) 01/03/20 05:55 MCV 89.2 fl (80-96) 01/03/20 05:55 MCH 29.0 pg (25.7-33.7) 01/03/20 05:55 MCHC 32.5 g/dl (32.0-36.0) 01/03/20 05:55 RDW 15.9 % (11.6-15.6) H 01/03/20 05:55 Plt Count 329 K/MM3 (134-434) 01/03/20 05:55 MPV 8.2 fl (7.5-11.1) 01/03/20 05:55 Absolute Neuts (auto) 6.3 K/mm3 (1.5-8.0) 01/03/20 05:55 Neutrophils % 72.3 % (42.8-82.8) D 01/03/20 05:55 Neutrophils % (Manual) 92.8 % (42.8-82.8) H 01/02/20 05:55 Band Neutrophils % 0.0 % 01/02/20 05:55 Lymphocytes % 22.1 % (8-40) D 01/03/20 05:55 Lymphocytes % (Manual) 7.2 % (8-40) L 01/02/20 05:55 Monocytes % 5.2 % (3.8-10.2) D 01/03/20 05:55 Monocytes % (Manual) 0 % (3.8-10.2) L 01/02/20 05:55 Eosinophils % 0.1 % (0-4.5) D 01/03/20 05:55 Eosinophils % (Manual) 0.0 % (0-4.5) 01/02/20 05:55 Basophils % 0.3 % (0-2.0) 01/03/20 05:55 Basophils % (Manual) 0.0 % (0-2.0) 01/02/20 05:55 Myelocytes % (Man) 0 % (0-2) 01/02/20 05:55 Promyelocytes % (Man) 0 % (0-2) 01/02/20 05:55 Blast Cells % (Manual) 0 % (0-0) 01/02/20 05:55 Nucleated RBC % 0 % (0-0) 01/03/20 05:55 Metamyelocytes 0 % (0-2) 01/02/20 05:55 Hypochromia 0 01/02/20 05:55 Platelet Estimate Normal 01/02/20 05:55 Polychromasia 0 01/02/20 05:55 Poikilocytosis 0 01/02/20 05:55 Anisocytosis 0 01/02/20 05:55 Microcytosis 0 01/02/20 05:55 Macrocytosis 0 01/02/20 05:55 PT with INR 14.00 SEC (9.7-13.0) H 01/01/20 16:00 INR 1.18 (0.83-1.09) H 01/01/20 16:00 Sodium 138 mmol/L (136-145) 01/03/20 05:55 Potassium 4.0 mmol/L (3.5-5.1) 01/03/20 05:55 Chloride 104 mmol/L (98-107) 01/03/20 05:55 Carbon Dioxide 27 mmol/L (21-32) 01/03/20 05:55 Anion Gap 7 MMOL/L (8-16) L 01/03/20 05:55 BUN 13.8 mg/dL (7-18) 01/03/20 05:55 Creatinine 0.7 mg/dL (0.55-1.3) 01/03/20 05:55 Est GFR (CKD-EPI)AfAm 136.66 01/03/20 05:55 Est GFR (CKD-EPI)NonAf 117.91 01/03/20 05:55 Random Glucose 91 mg/dL (74-106) 01/03/20 05:55 Calcium 8.8 mg/dL (8.5-10.1) 01/03/20 05:55 Phosphorus 3.7 mg/dL (2.5-4.9) 01/03/20 05:55 Magnesium 2.2 mg/dL (1.8-2.4) 01/03/20 05:55 Total Bilirubin 0.4 mg/dL (0.2-1) 01/03/20 05:55 Direct Bilirubin 0.2 mg/dL (0.0-0.2) 01/01/20 16:00 AST 34 U/L (15-37) 01/03/20 05:55 ALT 94 U/L (13-61) H 01/03/20 05:55 Alkaline Phosphatase 69 U/L (45-117) 01/03/20 05:55 Troponin I < 0.02 ng/ml (0.00-0.05) 01/01/20 16:00 B-Natriuretic Peptide 14.3 pg/ml (5-125) 01/01/20 16:00 Total Protein 6.9 g/dl (6.4-8.2) 01/03/20 05:55 Albumin 3.4 g/dl (3.4-5.0) 01/03/20 05:55 Lipase 106 U/L (73-393) 12/30/19 11:00 Serum , Qual Negative 12/30/19 11:00 Urine Color Yellow 12/30/19 12:32 Urine Appearance Cloudy 12/30/19 12:32 Urine pH 8.0 (5.0-8.0) 12/30/19 12:32 Ur Specific Oblong 1.019 (1.010-1.035) 12/30/19 12:32 Urine Protein Negative (NEGATIVE) 12/30/19 12:32 Urine Glucose (UA) Negative (NEGATIVE) 12/30/19 12:32 Urine Ketones Negative (NEGATIVE) 12/30/19 12:32 Urine Blood Negative (NEGATIVE) 12/30/19 12:32 Urine Nitrite Negative (NEGATIVE) 12/30/19 12:32 Urine Bilirubin Negative (NEGATIVE) 12/30/19 12:32 Urine Urobilinogen 2.0 mg/dL (0.2-1.0) H 12/30/19 12:32 Ur Leukocyte Esterase Trace (NEGATIVE) 12/30/19 12:32 Urine WBC (Auto) 131 /uL (0-25.8) 12/30/19 12:32 Urine RBC (Auto) 25.6 /uL (0-23.9) 12/30/19 12:32 Urine Casts (Auto) 2 /uL (0-3.1) 12/30/19 12:32 U Epithel Cells (Auto) >36 /uL (0-25.1) 12/30/19 12:32 Urine Bacteria (Auto) 2751 /uL (0-1359) 12/30/19 12:32 Smooth Musc &COMMUNICABLE DISEASE SPECIALIST Intrp 14 Units (0-19) 12/31/19 08:10 COVID-19 (MEET) Not detected (Not Detected) 12/30/19 17:18 Hep A IgM Ab Confirm Negative (Negative) 12/30/19 20:45 Hep Bs Antigen Negative (Negative) 12/30/19 20:45 Hep B Core IgM Ab Negative (Negative) 12/30/19 20:45 Hepatitis C Ab (EIA) 0.1 s/co ratio (0.0-0.9) 12/30/19 20:45 Blood Type O POSITIVE 01/01/20 16:00 Antibody Screen Negative 01/01/20 16:00 Active Medications Heparin Sodium (Porcine) (Heparin -) 5,000 unit SQ TID NESSA Last Admin: 01/03/20 15:03 Dose: 5,000 unit Documented by: Ceftriaxone Sodium 1 gm/ (Dextrose) 50 mls @ 100 mls/hr IVPB DAILY NESSA; Protocol Last Admin: 01/03/20 09:57 Dose: 100 mls/hr Documented by: Ketorolac Tromethamine (Toradol Injection -) 30 mg IVPUSH Q8H-IV NESSA Stop: 01/07/20 09:59 Last Admin: 01/03/20 11:56 Dose: 30 mg Documented by: Morphine Sulfate (Morphine Sulfate) 4 mg IVPUSH Q4H PRN PRN Reason: PAIN LEVEL 6-10 Last Admin: 01/01/20 18:56 Dose: 4 mg Documented by: Ondansetron HCl (Zofran Injection) 4 mg IVPUSH Q6H PRN PRN Reason: NAUSEA Last Admin: 01/01/20 19:04 Dose: 4 mg Documented by: Pantoprazole Sodium (Protonix Iv) 40 mg IVPUSH DAILY [facility] Last Admin: 01/03/20 09:57 Dose: 40 mg Documented by: HOSPITAL COURSE: This is a 29 yo female with no significant PMH presents with RUQ pain found to have acute cholecystitis and cholelithiasis and underwent laprascopic cholecystectomy (on 12/31, done by Dr. Herrera). In PACU, pt found to be hypoxic, requiring venti-mask. As per anesthesia, pt had an ETT full of mucus upon extubation. Pt complained of palpitations and shortness of breath. Subsequent EKG showed S1Q3T3. Her symptoms and EKG were concerning for PE. Pt was monitored in ICU for hypoxia and possible treatment for PE. CTA was negative for PE, but was positive for atelectactic changes and infiltrates in the lower lobes b/l. Troponin was <0.02, BNP 14.3. Pt had some improved sinus tachycardic and hypertension in the ICU. Consider IV Lopressor 5 PRN q4 for sustained HR >120. Pt was encouraged and instructed on how to use the incentive spirometer and was maintained on nasal cannula with good oxygen saturation. Pt was put on ampicillin/Sulbactam for perioperative prophylaxis. However, urine culture showed growth of proteus mirabilis and was placed on ceftriaxone instead. Pt was able to tolerate a liquid diet and admits to improving shortness of breath and tachycardia. Pt's history (denies OCP, cancers, recent surgery, family history of clots) and imaging (b/l atelectasis, negative CTA for PE) suggest pain- induced or anxiety-induced tachycardia hypertension in a post-operative setting. Today, pt had resolution of tachycardia and hypertension. Admits to improving pain of surgical sites. Able to tolerate diet. Dispo: Discharge to home. Follow up with Dr. Herrera 1-2 weeks. Date of Admission:12/30/19 Date of Discharge: 01/03/20 Minutes to complete discharge: 35 Discharge Summary Problems reviewed: Yes Reason For Visit: ELEVATED TRANSAMINASE MEASUREMENT, Condition: Stable - Instructions Diet, Activity, Other Instructions: Dr. Herrera Discharge Instruction Post Operative Instructions Physical activity Resume your normal everyday activity as tolerated no heavy lifting or exercise until seen by your surgeon. You may walk unlimited amounts of and climb stairs. You may resume driving the car when you feel safe and comfortable behind the wheel. Wound care If you have a bandage, leave it on, and keep dry for 48 - 72 hours. After that time discard the outer bandage. If there are tapes on the skin under the outer bandage, leave them in place. They will peel off in the next 7 to 10 days. Do Not peel them off. You may shower 2 days after surgery. If there are tapes present on the skin, they can get wet. Diet There are no dietary restrictions. Eat healthy, high-fiber foods. Drink 6 to 8 glasses of liquid each day. This will assist in keeping your bowels are regular. Pain management You may take Tylenol or acetaminophen or Ibuprofen (for example, Motrin, Advil etc.) Any pain prescription medication ordered should be taken as prescribed for moderate to severe pain. Call Dr. Herrera for any of the following: Severe pain not relieved by medication Fever of 101 or higher Excessive bleeding or drainage on dressing Inability to urinate Call the office at [phone] for a post operative appointment in 7 - 10 days. iSTOP The Drug Utilization Report below displays all of the controlled substance prescriptions, if any, that your patient has filled in the last twelve months. The information displayed on this report is compiled from pharmacy submissions to the Department, and accurately reflects the information as submitted by the pharmacies. This report was requested by: Jorge Malhotra | Reference #: [id number] During your stay, you were found to have a urinary tract infection. You were given 2 days of IV antibiotics. Please continue to take bactrim (Antibiotic) for 3 more days. Referrals: Moustapha Pierre MD [Primary Care Provider] - Dino Herrera MD [Staff Physician] - Disposition: HOME - Home Medications Comprehensive Discharge Medication List: Ambulatory Orders oxyCODONE HCL [Roxicodone -] 5 mg PO Q4H PRN #20 tablet MDD 6 01/01/20 Sulfamethoxazole/Trimethoprim [Bactrim Ds Tablet] 1 each PO Q12H #6 tablet 01/03/20 This patient is new to me today: No Emergency Visit: Yes ED Registration Date: 12/30/19 Care time: The patient presented to the Emergency Department on the above date and was hospitalized for further evaluation of their emergent condition. Critical Care patient: Yes Total Critical Care Time (in minutes): 36 Critical Care Statement: The care of this patient involved high complexity decision making to prevent further life threatening deterioration of the patient's condition and/or to evaluate & treat vital organ system(s) failure or risk of failure. - Discharge Referral Referred to [facility] Med [facility] No ATTENDING PHYSICIAN STATEMENT I saw and evaluated the patient. I reviewed the resident's note and discussed the case with the resident. I agree with the resident's findings and plan as documented. SUBJECTIVE: OBJECTIVE: ASSESSMENT AND PLAN:"
[2020-01-03 15:50] VITALS: BP 117/86; PULSE 74
== END 2020-01-03 16:35 | disposition home or self-care (01) | DRG 263 ==
LOC: JER 10:26 → JERBED 15:25 → J7W 12-31 18:24 → JICU 01-01 18:13
PROVIDERS: ADMIT Internal Medicine; ATTEND Internal Medicine
PROC: 0FT44ZZ Resection of Gallbladder, Percutaneous Endoscopic Approach (ICD-10-PCS; principal; 2019-12-30)
DX: K80.42 Calculus of bile duct with acute cholecystitis without obstruction (principal); I97.89 Other postprocedural complications and disorders of the circulatory system, not elsewhere classified; R74.0 Nonspecific elevation of levels of transaminase and lactic acid dehydrogenase [LDH]; K76.0 Fatty (change of) liver, not elsewhere classified; R16.0 Hepatomegaly, not elsewhere classified; D72.829 Elevated white blood cell count, unspecified; R00.0 Tachycardia, unspecified; I10 Essential (primary) hypertension; J98.11 Atelectasis; Y83.8 Other surgical procedures as the cause of abnormal reaction of the patient, or of later complication, without mention of misadventure at the time of the procedure; R09.02 Hypoxemia; N39.0 Urinary tract infection, site not specified; B96.4 Proteus (mirabilis) (morganii) as the cause of diseases classified elsewhere
CPT/HCPCS: 36415; 71045-TC-FY; 71275-TC; 76705-TC; 78226-TC; 80048; 80053; 80074; 80076; 81003; 83516; 83690; 83735; 83880; 84100; 84484; 84703; 85025; 85027; 85610; 86038; 86850; 86900; 86901; 87086; 87186; 88304-TC; 93005; 93010; 94640; 94760; 99285-25; A9537; J1644; Q9967; U0003

== ENCOUNTER 2021-02-16 18:40 | Emergency (ER) | payer OTHER ==
[2021-02-16 19:04] VITALS: BP 141/89; PULSE 75; TEMP 97.8; BMI 33.4
[2021-02-16] MEDS ORDERED: ONDANSETRON 4 MG/2 ML VIAL IVPUSH ONE (20:53)
[2021-02-16] MEDS ORDERED: SODIUM CHLORIDE 0.9% 500 ML INFUS.BAG IV ONE (20:54)
[2021-02-16] MEDS ORDERED: ONDANSETRON 4 MG/2 ML VIAL ONE (21:18)
[2021-02-16 22:00] LABS: EOS % 0.8 % (0-4.5); HEMATOCRIT 31.6 % (32.4-45.2); HEMOGLOBIN 10.7 GM/dL (10.7-15.3); LYMPH % 33.8 % (8-40); MCHC 33.7 g/dl (32.0-36.0); MEAN CELL VOLUME 89.1 fl (80-96); MEAN PLT VOLUME 9.2 fl (7.5-11.1); MONO % 6.2 % (3.8-10.2); NEUT % 58.2 % (42.8-82.8); PLATELET COUNT 229 10^3/uL (134-434); RBC 3.55 M/mm3 (3.60-5.2); RDW 15.9 % (11.6-15.6); WHITE BLOOD COUNT 5.6 K/mm3 (4.0-10.0)
[2021-02-16 22:02] LABS: URINE APPEARANCE CLEAR; URINE BILIRUBIN NEGATIVE (NEGATIVE); URINE COLOR YELLOW; URINE GLUCOSE (UA) NEGATIVE (NEGATIVE); URINE KETONE NEGATIVE (NEGATIVE); URINE LEUK ESTERASE NEGATIVE (NEGATIVE); URINE NITRITE NEGATIVE (NEGATIVE); URINE PROTEIN NEGATIVE (NEGATIVE)
[2021-02-16 22:27] LABS: CHLORIDE 102 mmol/L (98-107); SODIUM 124 mmol/L (136-145)
[2021-02-16 22:29] LABS: ALBUMIN 3.6 g/dl (3.4-5.0); CALCIUM 7.9 mg/dL (8.5-10.1); CO2 26 mmol/L (21-32); GLUCOSE,RANDOM 96 mg/dL (74-106); LIPASE 38 U/L (73-393); MAGNESIUM 2.2 mg/dL (1.8-2.4)
[2021-02-16 22:32] LABS: CREATININE 0.8 mg/dL (0.55-1.3)
[2021-02-16 22:34] LABS: TOT PROT 9.3 g/dl (6.4-8.2)
[2021-02-16 22:35] LABS: ALK PHOS 81 U/L (45-117)
[2021-02-16 23:17] LABS: ANION GAP -3 MMOL/L (8-16); SGOT/AST 142 U/L (15-37)
[2021-02-17 00:10] LABS: CALCIUM 8.4 mg/dL (8.5-10.1)
[2021-02-17 00:11] LABS: ALBUMIN 3.8 g/dl (3.4-5.0); BLOOD UREA NITROGEN 10.3 mg/dL (7-18)
[2021-02-17 00:14] LABS: CREATININE 0.7 mg/dL (0.55-1.3)
[2021-02-17 00:16] LABS: BILIRUBIN,TOTAL 0.3 mg/dL (0.2-1); TOT PROT 7.5 g/dl (6.4-8.2)
== END 2021-02-17 00:48 | disposition home or self-care (01) ==
LOC: JER 18:40
PROC: 3E033GC Introduction of Other Therapeutic Substance into Peripheral Vein, Percutaneous Approach (ICD-10-PCS; principal; 2021-02-16)
DX: R10.84 Generalized abdominal pain (principal)
CPT/HCPCS: 36415; 74177-TC; 80053; 81003; 83605; 83690; 83735; 84703; 85025; 87086; 93005; 93010; 99285-25; Q9967

== ENCOUNTER 2021-06-10 18:23 | Emergency (ER) | payer OTHER ==
[2021-06-10 18:57] VITALS: BP 138/98; PULSE 92; TEMP 98.3; BMI 33.3
== END 2021-06-10 22:27 | disposition home or self-care (01) ==
LOC: JER 18:23
DX: U07.1 COVID-19 (principal)
CPT/HCPCS: 87804; 87807; 99283-25; C9803; U0003; U0005